=== PATIENT | male | born 1940 | race Caucasian/White ===

== ENCOUNTER → 2017-11-11 09:01 | Outpatient (CLI) | payer MEDICARE, SELFPAY ==
[2017-11-11 11:07] LABS: Absolute Neutrophil Count 6.5 X10^3/uL (2.0-7.7); Basophil# 0.03 X10^3/uL; Basophil% 0.3 % (0-1); Eosinophil# 0.13 X10^3/uL; Eosinophils% 1.4 % (0-5); Hematocrit 52.2 % (40-54); Hemoglobin 17.2 g/dl (13.0-16.5); Lymphocyte % 18.9 % (19-41); Mean Corpuscular Hgb 31.3 pg (27.0-32.0); Mean Corpuscular Volume 95.1 fL (80-94); Monocyte# 0.62 X10^3/uL; Monocyte% 6.9 % (0-10); Neutrophil # 6.47 X10^3/uL (2.7-7.7); Neutrophil % 72.2 % (47-70); Platelet Count 135 K/mm3 (150-450); Red Blood Count 5.49 M/mm3 (4.6-6.2)
[2017-11-11 11:08] LABS: POSITIVE COUNT NO; POSITIVE DIFFERENTIAL NO; POSITIVE MORPHOLOGY NO
[2017-11-11 11:31] LABS: Hemoglobin A1c 5.8 % (4.2-6.3)
[2017-11-13 11:04] LABS: Testosterone Free 9.2 pg/mL (6.6-18.1)
== END ==
PROVIDERS: Family Provider Family Medicine; PCP Family Medicine; Visit Provider Family Medicine
DX: R73.02 Impaired glucose tolerance (oral) (principal); Z51.81 Encounter for therapeutic drug level monitoring; E29.1 Testicular hypofunction
CPT/HCPCS: 36415; 83036; 84402; 84403; 85025

== ENCOUNTER 2018-07-06 15:00 | Outpatient (RCR) | payer MEDICARE, SELFPAY ==
--- NOTE | 2018-06-25 09:07 | ART_ITS ---
Reason For Study: PAD Left Segmental Pressures The left dorsalis pedis waveforms are triphasic. The left posterior tibial artery waveforms are triphasic. Left brachial= 121mmHg. Left posterior tibial artery = 155mmHg. Left dorsalis pedis artery = 143mmHg. Left digit = 135 mmHg. Right Segmental Pressures The right dorsalis pedis waveforms are triphasic. The right posterior tibial artery waveforms are triphasic. Right brachial= 130mmHg. Right posterior tibial artery = 160mmHg. Right dorsalis pedis artery = 144mmHg. Right digit = 120 mmHg. Indices The right ankle brachial index by the dorsalis pedis is 1.11. The right ankle brachial index by the posterior tibial artery is 1.23. The right digital-brachial index is .92. The left ankle brachial index by the dorsalis pedis is 1.1. The left ankle brachial index by the posterior tibial artery is 1.09. The left digital-brachial index is 1.04. Interpretation Summary Triphasic Doppler waveforms are noted at ankle level bilaterally. Pulse-volume recordings demonstrate satisfactory waveform amplitudes at all levels bilaterally, including low thigh, calf, ankle, and digital levels. Resting ankle-brachial indices appear bilaterally normal. Digital- brachial indices are normal bilaterally. There is no evidence of significant arterial occlusive disease in the lower extremities bilaterally. Ordering Physician: Antwon Campbell Performed By: HELLEN CARMONA T
[2018-06-29 14:00] VITALS: BP 118/76; PULSE 80; RESP 18; TEMP 36.2; BMI 30.2
--- NOTE | 2018-06-29 14:50 | PCM.WC.HP ---
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 Current Visit: Yes Qualifiers: Laterality: bilateral Qualified Code(s): I83.893 - Varicose veins of bilateral lower extremities with other complications Code(s): I83.899 - Varicose veins of unspecified lower extremity with other complications (5) Venous hypertension, chronic, with inflammation Status: Chronic Current Visit: Yes Qualifiers: Laterality: bilateral Qualified Code(s): I87.323 - Chronic venous hypertension (idiopathic) with inflammation of bilateral lower extremity Code(s): I87.329 - Chronic venous hypertension (idiopathic) with inflammation of unspecified lower extremity (6) Gout Status: Chronic Current Visit: No Code(s): M10.9 - Gout, unspecified (7) BPH (benign prostatic hyperplasia) Status: Chronic Current Visit: No Code(s): N40.0 - Benign prostatic hyperplasia without lower urinary tract symptoms (8) Arthritis Status: Chronic Current Visit: No Code(s): M19.90 - Unspecified osteoarthritis, unspecified site (9) Hypertension Status: Chronic Current Visit: No Code(s): I10 - Essential (primary) hypertension (10) History of skin cancer Status: Chronic Current Visit: No Code(s): Z85.828 - Personal history of other malignant neoplasm of skin (11) Hyperpigmentation Status: Acute Current Visit: Yes Code(s): L81.9 - Disorder of pigmentation, unspecified (12) Lipodermatosclerosis Status: Acute Current Visit: Yes Code(s): I83.10 - Varicose veins of unspecified lower extremity with inflammation (13) Venous stasis dermatitis Status: Acute Current Visit: Yes Code(s): I87.2 - Venous insufficiency (chronic) (peripheral) Past Medical History Past Medical History: Chronic Problems Chronic venous insufficiency (Chronic) Varicose veins with inflammation (Chronic) Leg pain (Chronic) 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, chronic, with inflammation (Chronic) Gout (Chronic) BPH (benign prostatic hyperplasia) (Chronic) Arthritis (Chronic) Hypertension (Chronic) History of skin cancer (Chronic) Allergies/Adverse Reactions: Allergies Sulfa (Sulfonamide Antibiotics) Allergy (Verified 06/29/18 14:26) Hives Home Medications: Ambulatory Orders Medication Instructions Recorded Allopurinol 100 mg PO BID 06/29/18 Androgel 1.62 % TOPICAL BID 06/29/18 Folic Acid 1 mg PO DAILY 06/29/18 Gabapentin 300 mg PO BID 06/29/18 [place] 3 Fish Oil Softgel 360 mg PO BID 06/29/18 One Daily For Men Tablet 06/29/18 Tamsulosin HCl 0.4 mg PO DAILY 06/29/18 Tramadol 50 mg PO PRN PRN 06/29/18 Valsartan-Hctz 320-25 mg Tab 320 mg PO DAILY 06/29/18 Vitamin D3 5,000 iu PO PRN PRN 06/29/18 traZODone 50 mg PO DAILY 06/29/18 - Family History Paternal - - The patient's father at the age of 89 with a history of prostate cancer. The patient's mother at the history of 96 with a history of venous disease and hypertension. Smoking Status: Former smoker - Physical Exam Vital Signs Temp Pulse Resp BP 97.1 F L 80 18 118/76 06/29/18 14:00 06/29/18 14:00 06/29/18 14:00 06/29/18 14:00 Wound Measurements and Assessment WC - Nurse 1 - General Ulcer Measurement Start: 06/29/18 13:49 Freq: Status: Active Protocol: Activity Type Activity Date Activity User E-Sign Co-Sign Detail Recorded Client Recorded Date Recorded By Document 06/29/18 14:00 AN [id number] 06/29/18 14:23 AN 06/29/18 14:00 Wound Center Nurse 1 [Ulcer Assessment] #1 RIGHT ANTERIOR EM -Combined with other wound No -Current Size (cm) - Length 0.4 -Current Size (cm) - Width 0.4 -Current Size (cm) - Depth 0.1 -Total Square Cm 0.16 -Date of Last Picture (Recall this 06/29/18 field) -Photo Taken Yes -Epithelialization None Present -Tunneling No -Undermining/Tunneling No -Circular Undermining No -Classification - Thickness Partial Thickness -Exudate Amt Small -Exudate Type Serous -Wound Margin Distinct, Outline Attached -Granulation Amt Large (67-100%) -Granulation Quality Red -Slough/Fibrin No -Structure Exposed None/Limited to Skin Breakdown -Texture (Priscilla-wound Skin Appearance) Assessed Excoriation Localized Edema -Moisture (Priscilla-wound Skin Appearance Assessed ) Dry/Scaly -Color (Priscilla-wound Skin Appearance) Assessed Hemosiderin Staining -Temperature (Priscilla-wound Skin No Abnormality Appearance) (Pt Warm) -Tenderness on Palpation (Priscilla-wound No Skin Appearance) -Ulcer Cleansing Rinsed/ Irrigated with Saline -Foul Odor after Cleansing No -Anesthetic Used 5% Lidocaine Gel [Edema Assessment] -Right Calf (cm) 37.8 -Right Ankle (cm) 24 -Left Calf (cm) 37.2 -Left Ankle (cm) 23 WC - Nurse 2 - General Ulcer CM Notes Start: 06/29/18 13:49 Freq: Status: Active Protocol: Activity Type Activity Date Activity User E-Sign Co-Sign Detail Recorded Client Recorded Date Recorded By Document 06/29/18 14:45 MW [id number] 06/29/18 14:48 MW 06/29/18 14:45 Wound Center Nurse 2 [Procedure/Treatment] #1 RIGHT ANTERIOR EM -Time 14:46 -Correct Patient Yes -Correct Side, Site, Position Yes -Correct Procedure Yes -Procedure Performed No -Post Debridement Size (cm) - Length 0.4 -Post Debridement Size (cm) - Width 0.4 -Post Debridement Size (cm) - Depth 0.1 -Total Square Cm 0.16 -Wound/Ulcer Outcome Not Healed -Ulcer Cleansing Rinsed/ Irrigated with Saline -Foul Odor after Cleansing No -Bioengineered Tissue No -Bleeding Controlled with NA -Offloading No -Treatment Response Procedure Tolerated Well [See Physician Procedure note for Specifics] Pain Scale: 0-10 Numeric [Pain] -Is Patient Pain Free? Yes Debridement Note Post-Debridement Measurements/Treatment WC - Nurse 2 - General Ulcer CM Notes Start: 06/29/18 13:49 Freq: Status: Active Protocol: Activity Type Activity Date Activity User E-Sign Co-Sign Detail Recorded Client Recorded Date Recorded By Document 06/29/18 14:45 MW [id number] 06/29/18 14:48 MW 06/29/18 14:45 Wound Center Nurse 2 #1 RIGHT ANTERIOR EM -Time 14:46 -Correct Patient Yes -Correct Side, Site, Position Yes -Correct Procedure Yes -Procedure Performed No -Post Debridement Size (cm) - Length 0.4 -Post Debridement Size (cm) - Width 0.4 -Post Debridement Size (cm) - Depth 0.1 -Total Square Cm 0.16 -Wound/Ulcer Outcome Not Healed -Ulcer Cleansing Rinsed/ Irrigated with Saline -Foul Odor after Cleansing No -Bioengineered Tissue No -Bleeding Controlled with NA -Offloading No -Treatment Response Procedure Tolerated Well Pain Scale: 0-10 Numeric Is Patient Pain Free? 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
--- NOTE | 2018-06-29 14:54 | HP.PCM_ITS ---
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 Current Visit: Yes Qualifiers: Laterality: bilateral Qualified Code(s): I83.893 - Varicose veins of bilateral lower extremities with other complications Code(s): I83.899 - Varicose veins of unspecified lower extremity with other complications (5) Venous hypertension, chronic, with inflammation Status: Chronic Current Visit: Yes Qualifiers: Laterality: bilateral Qualified Code(s): I87.323 - Chronic venous hypertension (idiopathic) with inflammation of bilateral lower extremity Code(s): I87.329 - Chronic venous hypertension (idiopathic) with inflammation of unspecified lower extremity (6) Gout Status: Chronic Current Visit: No Code(s): M10.9 - Gout, unspecified (7) BPH (benign prostatic hyperplasia) Status: Chronic Current Visit: No Code(s): N40.0 - Benign prostatic hyperplasia without lower urinary tract symptoms (8) Arthritis Status: Chronic Current Visit: No Code(s): M19.90 - Unspecified o steoarthritis, unspecified site (9) Hypertension Status: Chronic Current Visit: No Code(s): I10 - Essential (primary) hypertension (10) History of skin cancer Status: Chronic Current Visit: No Code(s): Z85.828 - Personal history of other malignant neoplasm of skin (11) Hyperpigmentation Status: Acute Current Visit: Yes Code(s): L81.9 - Disorder of pigmentation, unspecified (12) Lipodermatosclerosis Status: Acute Current Visit: Yes Code(s): I83.10 - Varicose veins of unspecified lower extremity with inflammation (13) Venous stasis dermatitis Status: Acute Current Visit: Yes Code(s): I87.2 - Venous insufficiency (chronic) (peripheral) Past Medical History Past Medical History: Chronic Problems Chronic venous insufficiency (Chronic) Varicose veins with inflammation (Chronic) Leg pain (Chronic) 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, chronic, with inflammation (Chronic) Gout (Chronic) BPH (benign prostatic hyperplasia) (Chronic) Arthritis (Chronic) Hypertension (Chronic) History of skin cancer (Chronic) Allergies/Adverse Reactions: Allergies Sulfa (Sulfonamide Antibiotics) Allergy (Verified 06/29/18 14:26) Hives Home Medications: Ambulatory Orders Medication Instructions Recorded Allopurinol 100 mg PO BID 06/29/18 Androgel 1.62 % TOPICAL BID 06/29/18 Folic Acid 1 mg PO DAILY 06/29/18 Gabapentin 300 mg PO BID 06/29/18 [place] 3 Fish Oil Softgel 360 mg PO BID 06/29/18 One Daily For Men Tablet 06/29/18 Tamsulosin HCl 0.4 mg PO DAILY 06/29/18 Tramadol 50 mg PO PRN PRN 06/29/18 Valsartan-Hctz 320-25 mg Tab 320 mg PO DAILY 06/29/18 Vitamin D3 5,000 iu PO PRN PRN 06/29/18 traZODone 50 mg PO DAILY 06/29/18 - Family History Paternal - - The patient's father at the age of 89 with a history of prostate cancer . The patient's mother at the history of 96 with a history of venous disease and hypertension. Smoking Status: Former smoker - Physical Exam Vital Signs Temp Pulse Resp BP 97.1 F L 80 18 118/76 06/29/18 14:00 06/29/18 14:00 06/29/18 14:00 06/29/18 14:00 Wound Measurements and Assessment WC - Nurse 1 - General Ulcer Measurement Start: 06/29/18 13:49 Freq: Status: Active Protocol: Activity Type Activity Date Activity User E-Sign Co-Sign Detail Recorded Client Recorded Date Recorded By Document 06/29/18 14:00 AN [id number] 06/29/18 14:23 AN 06/29/18 14:00 Wound Center Nurse 1 [Ulcer Assessment] #1 RIGHT ANTERIOR EM -Combined with other wound No -Current Size (cm) - Length 0.4 -Current Size (cm) - Width 0.4 -Current Size (cm) - Depth 0.1 -Total Square Cm 0.16 -Date of Last Picture (Recall this 06/29/18 field) -Photo Taken Yes -Epithelialization None Present -Tunneling No -Undermining/Tunneling No -Circular Undermining No -Classification - Thickness Partial Thickness -Exudate Amt Small -Exudate Type Serous -Wound Margin Distinct, Outline Attached -Granulation Amt Large (67-100%) -Granulation Quality Red -Slough/Fibrin No -Structure Exposed None/Limited to Skin Breakdown -Texture (Priscilla-wound Skin Appearance) Assessed Excoriation Localized Edema -Moisture (Priscilla-wound Skin Appearance Assessed ) Dry/Scaly -Color (Priscilla-wound Skin Appearance) Assessed Hemosiderin Staining -Temperature (Priscilla-wound Skin No Abnormality Appearance) (Pt Warm) -Tenderness on Palpation (Priscilla-wound No Skin Appearance) -Ulcer Cleansing Rinsed/ Irrigated with Saline -Foul Odor after Cleansing No -Anesthetic Used 5% Lidocaine Gel [Edema Assessment] -Right Calf (cm) 37.8 -Right Ankle (cm) 24 -Left Calf (cm) 37.2 -Left Ankle (cm) 23 WC - Nurse 2 - General Ulcer CM Notes Start: 06/29/18 13:49 Freq: Status: Active Protocol: Activity Type Activity Date Activity User E-Sign Co-Sign Detail Recorded Client Recorded Date Recorded By Document 06/29/18 14:45 MW [id number] 06/29/18 14:48 MW 06/29/18 14:45 Wound Center Nurse 2 [Procedure/Treatment] #1 RIGHT ANTERIOR EM -Time 14:46 -Correct Patient Yes -Correct Side, Site, Position Yes -Correct Procedure Yes -Procedure Performed No -Post Debridement Size (cm) - Length 0.4 -Post Debridement Size (cm) - Width 0.4 -Post Debridement Size (cm) - Depth 0.1 -Total Square Cm 0.16 -Wound/Ulcer Outcome Not Healed -Ulcer Cleansing Rinsed/ Irrigated with Saline -Foul Odor after Cleansing No -Bioengineered Tissue No -Bleeding Controlled with NA -Offloading No -Treatment Response Procedure Tolerated Well [See Physician Procedure note for Specifics] Pain Scale: 0-10 Numeric [Pain] -Is Patient Pain Free? Yes Debridement Note Post-Debridement Measurements/Treatment WC - Nurse 2 - General Ulcer CM Notes Start: 06/29/18 13:49 Freq: Status: Active Protocol: Activity Type Activity Date Activity User E-Sign Co-Sign Detail Recorded Client Recorded Date Recorded By Document 06/29/18 14:45 MW [id number] 06/29/18 14:48 MW 06/29/18 14:45 Wound Center Nurse 2 #1 RIGHT ANTERIOR EM -Time 14:46 -Correct Patient Yes -Correct Side, Site, Position Yes -Correct Procedure Yes -Procedure Performed No -Post Debridement Size (cm) - Length 0.4 -Post Debridement Size (cm) - Width 0.4 -Post Debridement Size (cm) - Depth 0.1 -Total Square Cm 0.16 -Wound/Ulcer Outcome Not Healed -Ulcer Cleansing Rinsed/ Irrigated with Saline -Foul Odor after Cleansing No -Bioengineered Tissue No -Bleeding Controlled with NA -Offloading No -Treatment Response Procedure Tolerated Well Pain Scale: 0-10 Numeric Is Patient Pain Free? 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
--- NOTE | 2018-06-29 16:35 | PCM.WC.HP ---
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 Current Visit: Yes Qualifiers: Laterality: bilateral Qualified Code(s): I83.893 - Varicose veins of bilateral lower extremities with other complications Code(s): I83.899 - Varicose veins of unspecified lower extremity with other complications (5) Venous hypertension, chronic, with inflammation Status: Chronic Current Visit: Yes Qualifiers: Laterality: bilateral Qualified Code(s): I87.323 - Chronic venous hypertension (idiopathic) with inflammation of bilateral lower extremity Code(s): I87.329 - Chronic venous hypertension (idiopathic) with inflammation of unspecified lower extremity (6) Gout Status: Chronic Current Visit: No Code(s): M10.9 - Gout, unspecified (7) BPH (benign prostatic hyperplasia) Status: Chronic Current Visit: No Code(s): N40.0 - Benign prostatic hyperplasia without lower urinary tract symptoms (8) Arthritis Status: Chronic Current Visit: No Code(s): M19.90 - Unspecified osteoarthritis, unspecified site (9) Hypertension Status: Chronic Current Visit: No Code(s): I10 - Essential (primary) hypertension (10) History of skin cancer Status: Chronic Current Visit: No Code(s): Z85.828 - Personal history of other malignant neoplasm of skin (11) Hyperpigmentation Status: Chronic Current Visit: Yes Code(s): L81.9 - Disorder of pigmentation, unspecified (12) Lipodermatosclerosis Status: Chronic Current Visit: Yes Qualifiers: Laterality: bilateral Qualified Code(s): I83.11 - Varicose veins of right lower extremity with inflammation; I83.12 - Varicose veins of left lower extremity with inflammation Code(s): I83.10 - Varicose veins of unspecified lower extremity with inflammation (13) Venous stasis dermatitis Status: Chronic Current Visit: Yes Qualifiers: Laterality: right Qualified Code(s): I87.2 - Venous insufficiency (chronic) (peripheral) Code(s): I87.2 - Venous insufficiency (chronic) (peripheral) History of Present Illness Chief Complaint: Chronic venous insufficiency, varicose veins with inflammation, venous hypertension with inflammation, lower extremity swelling, lower extremity pain, venous stasis dermatitis, hyperpigmentation, lipodermatosclerosis History of Wound: This is a 77-year-old male with a long-standing history of chronic venous disease. The patient suffers from chronic venous insufficiency, varicose veins with inflammation, venous hypertension with inflammation, bilateral lower extremity swelling and pain, hyperpigmentation, and lipodermatosclerosis. The patient is relatively active. He sleeps in a flat position at night. He experiences swelling and edema in his lower extremities at days end. He denies a history of thrombophlebitis. He has previously undergone a bilateral vein stripping procedure in the remote past. He has recently developed superficial venous stasis dermatitis in the right lower extremity. Venous duplex examination performed in July 2017 the right great saphenous vein to be absent. The right anterior accessory saphenous vein and the right small saphenous vein were incompetent. The left great saphenous vein was absent. The left small saphenous vein and the left anterior accessory saphenous vein were incompetent. A recent noninvasive lower extremity arterial study was normal. There is no evidence of significant arterial occlusive disease in the lower extremities. Past Medical History Past Medical History: Chronic Problems Chronic venous insufficiency (Chronic) Varicose veins with inflammation (Chronic) Leg pain (Chronic) 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, chronic, with inflammation (Chronic) Gout (Chronic) BPH (benign prostatic hyperplasia) (Chronic) Arthritis (Chronic) Hypertension (Chronic) History of skin cancer (Chronic) Hyperpigmentation (Chronic) Lipodermatosclerosis (Chronic) Venous stasis dermatitis (Chronic) Past Medical History: Patient has a history of gout, benign prostatic hypertrophy, arthritis, hypertension, and skin cancer. His history is negative for myocardial infarction, congestive heart failure, diabetes mellitus, cerebrovascular accident, renal disease, pulmonary disease, thyroid disease, and hyperlipidemia. Surgical History: - - Patient has a history of right total knee replacement in 2013. He has undergone bilateral vein stripping procedures, where it appears he has undergone stripping of each great saphenous vein. Allergies/Adverse Reactions: Allergies Sulfa (Sulfonamide Antibiotics) Allergy (Verified 06/29/18 14:26) Hives Home Medications: Ambulatory Orders Medication Instructions Recorded Allopurinol 100 mg PO BID 06/29/18 Androgel 1.62 % TOPICAL BID 06/29/18 Folic Acid 1 mg PO DAILY 06/29/18 Gabapentin 300 mg PO BID 06/29/18 [place] 3 Fish Oil Softgel 360 mg PO BID 06/29/18 One Daily For Men Tablet 06/29/18 Tamsulosin HCl 0.4 mg PO DAILY 06/29/18 Tramadol 50 mg PO PRN PRN 06/29/18 Valsartan-Hctz 320-25 mg Tab 320 mg PO DAILY 06/29/18 Vitamin D3 5,000 iu PO PRN PRN 06/29/18 traZODone 50 mg PO DAILY 06/29/18 - Family History Paternal - - The patient's father at the age of 89 with a history of prostate cancer. The patient's mother at the history of 96 with a history of venous disease and hypertension. Lives: Spouse/ Significant Other Smoking Status: Former smoker Tobacco Use: Non-smoker Alcohol: Rare Drugs: None Review of Systems Constitutional: Denies: Chills, Fever, Weight Change Eyes: Denies: Pain, Vision Change HEENT: Denies: Difficulty Hearing, Difficulty Swallowing, Sinus Congestion Cardiovascular: Denies: Chest Pain, Palpitations Respiratory: Denies: Cough, Shortness of Breath Gastrointestinal: Denies: Diarrhea, Nausea, Vomiting Genitourinary: Denies: Dysuria, Hematuria Endocrine: Denies: Heat/ Cold Intolerance, Polydipsia, Polyuria Hematologic/ Lymphatic: Denies: Easy Bruising, Easy Bleeding - Physical Exam Vital Signs Temp Pulse Resp BP 97.1 F L 80 18 118/76 06/29/18 14:00 06/29/18 14:00 06/29/18 14:00 06/29/18 14:00 General: Alert, Oriented x3, Cooperative, No apparent distress, Well developed, Well nourished, - - Patient is obese. HEENT: Atraumatic, PERRLA, EOMI, Normocephalic Oral: Moist Mucosa, No Gingival or Mucosal Lesions/ Ulcerations Neck: Supple, No JVD, Negative Carotid Bruits, Negative Hepatojugular Reflux, No Nodes, No Nuchal Rigidity, Trachea Midline Lungs: Clear to auscultation, Normal air movement, No rhonchi, No wheeze, No rales Cardiovascular: Regular rate, Regular Rhythm, Normal S1, Normal S2, No murmurs Abdomen: Soft, Non Tender, Non-Distended, Obese Extremities: No clubbing, No cyanosis, No Calf Tenderness, - - Mild swelling and edema is noted in the lower extremities bilaterally. Both lower extremities demonstrate chronic hyperpigmentation and lipodermatosclerosis. There are no open wounds or ulcerations of the left lower extremity. On the right, there are several superficial excoriations in the distal right lower extremity, appearing to represent venous stasis dermatitis. There is no sign of infection or cellulitis. Wound Measurements and Assessment WC - Nurse 1 - General Ulcer Measurement Start: 06/29/18 13:49 Freq: Status: Active Protocol: Activity Type Activity Date Activity User E-Sign Co-Sign Detail Recorded Client Recorded Date Recorded By Document 06/29/18 14:00 AN [id number] 06/29/18 14:23 AN 06/29/18 14:00 Wound Center Nurse 1 [Ulcer Assessment] #1 RIGHT ANTERIOR EM -Combined with other wound No -Current Size (cm) - Length 0.4 -Current Size (cm) - Width 0.4 -Current Size (cm) - Depth 0.1 -Total Square Cm 0.16 -Date of Last Picture (Recall this 06/29/18 field) -Photo Taken Yes -Epithelialization None Present -Tunneling No -Undermining/Tunneling No -Circular Undermining No -Classification - Thickness Partial Thickness -Exudate Amt Small -Exudate Type Serous -Wound Margin Distinct, Outline Attached -Granulation Amt Large (67-100%) -Granulation Quality Red -Slough/Fibrin No -Structure Exposed None/Limited to Skin Breakdown -Texture (Priscilla-wound Skin Appearance) Assessed Excoriation Localized Edema -Moisture (Priscilla-wound Skin Appearance Assessed ) Dry/Scaly -Color (Priscilla-wound Skin Appearance) Assessed Hemosiderin Staining -Temperature (Priscilla-wound Skin No Abnormality Appearance) (Pt Warm) -Tenderness on Palpation (Priscilla-wound No Skin Appearance) -Ulcer Cleansing Rinsed/ Irrigated with Saline -Foul Odor after Cleansing No -Anesthetic Used 5% Lidocaine Gel [Edema Assessment] -Right Calf (cm) 37.8 -Right Ankle (cm) 24 -Left Calf (cm) 37.2 -Left Ankle (cm) 23 WC - Nurse 2 - General Ulcer CM Notes Start: 06/29/18 13:49 Freq: Status: Active Protocol: Activity Type Activity Date Activity User E-Sign Co-Sign Detail Recorded Client Recorded Date Recorded By Document 06/29/18 14:45 MW [id number] 06/29/18 14:48 MW 06/29/18 14:45 Wound Center Nurse 2 [Procedure/Treatment] #1 RIGHT ANTERIOR EM -Time 14:46 -Correct Patient Yes -Correct Side, Site, Position Yes -Correct Procedure Yes -Procedure Performed No -Post Debridement Size (cm) - Length 0.4 -Post Debridement Size (cm) - Width 0.4 -Post Debridement Size (cm) - Depth 0.1 -Total Square Cm 0.16 -Wound/Ulcer Outcome Not Healed -Ulcer Cleansing Rinsed/ Irrigated with Saline -Foul Odor after Cleansing No -Bioengineered Tissue No -Bleeding Controlled with NA -Offloading No -Treatment Response Procedure Tolerated Well [See Physician Procedure note for Specifics] Pain Scale: 0-10 Numeric [Pain] -Is Patient Pain Free? Yes Musculoskeletal: No Muscle Wasting Neurological: Cranial nerves II-XII grossly intact, Neuro grossly intact Psych/Mental Status: Normal Affect, Appropriate, Alert and oriented to time, place, person, mood and affect Debridement Note Post-Debridement Measurements/Treatment - Nurse 2 - General Ulcer CM Notes Start: 06/29/18 13:49 Freq: Status: Active Protocol: Activity Type Activity Date Activity User E-Sign Co-Sign Detail Recorded Client Recorded Date Recorded By Document 06/29/18 14:45 MW [id number] 06/29/18 14:48 MW 06/29/18 14:45 Wound Center Nurse 2 #1 RIGHT ANTERIOR EM -Time 14:46 -Correct Patient Yes -Correct Side, Site, Position Yes -Correct Procedure Yes -Procedure Performed No -Post Debridement Size (cm) - Length 0.4 -Post Debridement Size (cm) - Width 0.4 -Post Debridement Size (cm) - Depth 0.1 -Total Square Cm 0.16 -Wound/Ulcer Outcome Not Healed -Ulcer Cleansing Rinsed/ Irrigated with Saline -Foul Odor after Cleansing No -Bioengineered Tissue No -Bleeding Controlled with NA -Offloading No -Treatment Response Procedure Tolerated Well Pain Scale: 0-10 Numeric Is Patient Pain Free? Yes No debridement was completed today Assessment/Plan Active Problems Chronic venous insufficiency (Chronic) Varicose veins with inflammation (Chronic) Leg pain (Chronic) 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, chronic, with inflammation (Chronic) Hyperpigmentation (Chronic) Lipodermatosclerosis (Chronic) Venous stasis dermatitis (Chronic) Assessment: This is a 77-year-old male with a long-standing history of chronic venous disease. He suffers from chronic venous insufficiency, varicose veins with inflammation, venous hypertension with inflammation, chronic leg swelling and pain, and has skin changes which are chronic in nature, consistent with his venous disease, with manifestations of lipodermatosclerosis and hyperpigmentation. Plan: Conservative treatment measures are to be implemented. The patient is to elevate his lower extremities as much as possible. He is to continue sleeping in a flat position at night. Leg elevation is to be to heart level, or higher. This is to be accomplished even during daytime hours. Activity has been encouraged. Weight optimization has been recommended. The patient is to avoid idle standing and sitting. We are to continue compression to the left lower extremity by means of graduated compression stockings of 20-30 mmHg, which the patient currently possesses. We are to implement compression of the right lower extremity by means of an [place] boot, which will be placed today, and changed twice weekly. This will offer compression to the right lower extremity, as well as address issues with regard to dermatitis in the right lower extremity. The patient is to return in 1 week for reassessment. The patient is not a smoker. Influenza vaccine was not administered today. Patient weighs 205 pounds. He stands 5 feet 9 inches tall. His BMI is 30.2, which places him in an obese class I category. Weight loss has been recommended, in collaboration with his primary care physician has been advised.
[2018-07-02 08:32] VITALS: BP 130/79; PULSE 75; RESP 18; TEMP 36.6; BMI 30.2
[2018-07-06 15:07] VITALS: BP 140/87; PULSE 135; RESP 18; TEMP 37; BMI 30.2
--- NOTE | 2018-07-06 16:52 | PCM.WC.HP ---
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 Current Visit: Yes Qualifiers: Laterality: bilateral Qualified Code(s): I83.893 - Varicose veins of bilateral lower extremities with other complications Code(s): I83.899 - Varicose veins of unspecified lower extremity with other complications (5) Venous hypertension, chronic, with inflammation Status: Chronic Current Visit: Yes Qualifiers: Laterality: bilateral Qualified Code(s): I87.323 - Chronic venous hypertension (idiopathic) with inflammation of bilateral lower extremity Code(s): I87.329 - Chronic venous hypertension (idiopathic) with inflammation of unspecified lower extremity (6) Gout Status: Chronic Current Visit: No Code(s): M10.9 - Gout, unspecified (7) BPH (benign prostatic hyperplasia) Status: Chronic Current Visit: No Code(s): N40.0 - Benign prostatic hyperplasia without lower urinary tract symptoms (8) Arthritis Status: Chronic Current Visit: No Code(s): M19.90 - Unspecified osteoarthritis, unspecified site (9) Hypertension Status: Chronic Current Visit: No Code(s): I10 - Essential (primary) hypertension (10) History of skin cancer Status: Chronic Current Visit: No Code(s): Z85.828 - Personal history of other malignant neoplasm of skin (11) Hyperpigmentation Status: Chronic Current Visit: Yes Code(s): L81.9 - Disorder of pigmentation, unspecified (12) Lipodermatosclerosis Status: Chronic Current Visit: Yes Qualifiers: Laterality: bilateral Qualified Code(s): I83.11 - Varicose veins of right lower extremity with inflammation; I83.12 - Varicose veins of left lower extremity with inflammation Code(s): I83.10 - Varicose veins of unspecified lower extremity with inflammation (13) Venous stasis dermatitis Status: Chronic Current Visit: Yes Qualifiers: Laterality: right Qualified Code(s): I87.2 - Venous insufficiency (chronic) (peripheral) Code(s): I87.2 - Venous insufficiency (chronic) (peripheral) History of Present Illness Chief Complaint: Chronic venous insufficiency, varicose veins with inflammation, venous hypertension with inflammation, lower extremity swelling, lower extremity pain, venous stasis dermatitis, hyperpigmentation, lipodermatosclerosis History of Wound: This is a 77-year-old male with a long-standing history of chronic venous disease. The patient suffers from chronic venous insufficiency, varicose veins with inflammation, venous hypertension with inflammation, bilateral lower extremity swelling and pain, hyperpigmentation, and lipodermatosclerosis. The patient is relatively active. He sleeps in a flat position at night. He experiences swelling and edema in his lower extremities at days end. He denies a history of thrombophlebitis. He has previously undergone a bilateral vein stripping procedure in the remote past. He has recently developed superficial venous stasis dermatitis in the right lower extremity. Venous duplex examination performed in July 2017 the right great saphenous vein to be absent. The right anterior accessory saphenous vein and the right small saphenous vein were incompetent. The left great saphenous vein was absent. The left small saphenous vein and the left anterior accessory saphenous vein were incompetent. A recent noninvasive lower extremity arterial study was normal. There is no evidence of significant arterial occlusive disease in the lower extremities. Past Medical History Past Medical History: Chronic Problems Chronic venous insufficiency (Chronic) Varicose veins with inflammation (Chronic) Leg pain (Chronic) 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, chronic, with inflammation (Chronic) Gout (Chronic) BPH (benign prostatic hyperplasia) (Chronic) Arthritis (Chronic) Hypertension (Chronic) History of skin cancer (Chronic) Hyperpigmentation (Chronic) Lipodermatosclerosis (Chronic) Venous stasis dermatitis (Chronic) Surgical History: - - Patient has a history of right total knee replacement in 2013. He has undergone bilateral vein stripping procedures, where it appears he has undergone stripping of each great saphenous vein. Allergies/Adverse Reactions: Allergies Sulfa (Sulfonamide Antibiotics) Allergy (Verified 06/29/18 14:26) Hives Home Medications: Ambulatory Orders Medication Instructions Recorded Allopurinol 100 mg PO BID 06/29/18 Androgel 1.62 % TOPICAL BID 06/29/18 Folic Acid 1 mg PO DAILY 06/29/18 Gabapentin 300 mg PO BID 06/29/18 [place] 3 Fish Oil Softgel 360 mg PO BID 06/29/18 One Daily For Men Tablet 06/29/18 Tamsulosin HCl 0.4 mg PO DAILY 06/29/18 Tramadol 50 mg PO PRN PRN 06/29/18 Valsartan-Hctz 320-25 mg Tab 320 mg PO DAILY 06/29/18 Vitamin D3 5,000 iu PO PRN PRN 06/29/18 traZODone 50 mg PO DAILY 06/29/18 - Family History Paternal - - The patient's father at the age of 89 with a history of prostate cancer. The patient's mother at the history of 96 with a history of venous disease and hypertension. Lives: Spouse/ Significant Other Smoking Status: Former smoker Tobacco Use: Non-smoker Alcohol: Rare Drugs: None Review of Systems Constitutional: Denies: Chills, Fever, Weight Change Eyes: Denies: Pain, Vision Change HEENT: Denies: Difficulty Hearing, Difficulty Swallowing, Sinus Congestion Cardiovascular: Denies: Chest Pain, Palpitations Respiratory: Denies: Cough, Shortness of Breath Gastrointestinal: Denies: Diarrhea, Nausea, Vomiting Genitourinary: Denies: Dysuria, Hematuria Endocrine: Denies: Heat/ Cold Intolerance, Polydipsia, Polyuria Hematologic/ Lymphatic: Denies: Easy Bruising, Easy Bleeding - Physical Exam Vital Signs Temp Pulse Resp BP 98.6 F 135 H 18 140/87 H 07/06/18 15:07 07/06/18 15:07 07/06/18 15:07 07/06/18 15:07 General: Alert, Oriented x3, Cooperative, No apparent distress, Well developed, Well nourished HEENT: Atraumatic, PERRLA, EOMI, Normocephalic Oral: Moist Mucosa Neck: No JVD Lungs: Normal air movement Abdomen: Non-Distended Extremities: No clubbing, No cyanosis, No edema, No Calf Tenderness, - - There is no significant swelling or edema in either lower extremity. Chronic hyperpigmentation and lipodermatosclerosis persist, with a small amount of scaly dermatitis. Otherwise, there are no open wounds or ulcerations in either lower extremity. There is no evidence of infection or cellulitis. Wound Measurements and Assessment WC - Nurse 1 - General Ulcer Measurement Start: 06/29/18 13:49 Freq: Status: Active Protocol: Activity Type Activity Date Activity User E-Sign Co-Sign Detail Recorded Client Recorded Date Recorded By Document 07/06/18 15:07 AN [id number] 07/06/18 15:19 AN 07/06/18 15:07 Wound Center Nurse 1 [Ulcer Assessment] #1 RIGHT ANTERIOR EM -Current Size (cm) - Length 0.1 -Current Size (cm) - Width 0.1 -Current Size (cm) - Depth 0.1 -Total Square Cm 0.01 -Exudate Amt None Present -Granulation Amt None Present (0 %) -Necrosis Amt None Present (0 %) -Structure Exposed None/Limited to Skin Breakdown -Texture (Priscilla-wound Skin Appearance) Assessed -Moisture (Priscilla-wound Skin Appearance Assessed ) -Color (Priscilla-wound Skin Appearance) Assessed -Ulcer Cleansing soap and water -Foul Odor after Cleansing No [Edema Assessment] -Right Calf (cm) 36 -Right Ankle (cm) 23 WC - Nurse 2 - General Ulcer CM Notes Start: 06/29/18 13:49 Freq: Status: Active Protocol: Activity Type Activity Date Activity User E-Sign Co-Sign Detail Recorded Client Recorded Date Recorded By Document 07/06/18 16:47 DV [id number] 07/06/18 16:49 DV 07/06/18 16:47 Wound Center Nurse 2 [Procedure/Treatment] #1 RIGHT ANTERIOR EM -Time 16:48 -Correct Patient Yes -Correct Side, Site, Position Yes -Procedure Performed No -Post Debridement Size (cm) - Length 0 -Post Debridement Size (cm) - Width 0 -Post Debridement Size (cm) - Depth 0 -Total Square Cm 0 -Wound/Ulcer Outcome Healed- Epithelialized [See Physician Procedure note for Specifics] Pain Scale: 0-10 Numeric [Pain] -Is Patient Pain Free? Yes Musculoskeletal: No Muscle Wasting Neurological: Cranial nerves II-XII grossly intact, Neuro grossly intact Psych/Mental Status: Normal Affect, Appropriate, Alert and oriented to time, place, person, mood and affect Debridement Note Post-Debridement Measurements/Treatment WC - Nurse 2 - General Ulcer CM Notes Start: 06/29/18 13:49 Freq: Status: Active Protocol: Activity Type Activity Date Activity User E-Sign Co-Sign Detail Recorded Client Recorded Date Recorded By Document 06/29/18 14:45 MW [id number] 06/29/18 14:48 MW Document 07/06/18 16:47 DV [id number] 07/06/18 16:49 DV 06/29/18 07/06/18 14:45 16:47 Wound Center Nurse 2 #1 RIGHT ANTERIOR EM -Time 14:46 16:48 -Correct Patient Yes Yes -Correct Side, Site, Position Yes Yes -Correct Procedure Yes -Procedure Performed No No -Post Debridement Size (cm) - Length 0.4 0 -Post Debridement Size (cm) - Width 0.4 0 -Post Debridement Size (cm) - Depth 0.1 0 -Total Square Cm 0.16 0 -Wound/Ulcer Outcome Not Healed Healed- Epithelialized -Ulcer Cleansing Rinsed/ Irrigated with Saline -Foul Odor after Cleansing No -Bioengineered Tissue No -Bleeding Controlled with NA -Offloading No -Treatment Response Procedure Tolerated Well Pain Scale: 0-10 Numeric Is Patient Pain Free? Yes Yes No debridement was completed today Assessment/Plan Active Problems Chronic venous insufficiency (Chronic) Varicose veins with inflammation (Chronic) Leg pain (Chronic) 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, chronic, with inflammation (Chronic) Hyperpigmentation (Chronic) Lipodermatosclerosis (Chronic) Venous stasis dermatitis (Chronic) Assessment: This is a 77-year-old male with a long-standing history of chronic venous disease. He suffers from chronic venous insufficiency, varicose veins with inflammation, venous hypertension with inflammation, chronic leg swelling and pain, and has skin changes which are chronic in nature, consistent with his venous disease, with manifestations of lipodermatosclerosis and hyperpigmentation. Plan: The patient is now completely healed. The excoriations and ulcerations in the lower extremities are completely healed and epithelialized. Patient is to be discharged. Conservative treatment measures are to be continued. The patient is to elevate his lower extremities as much as possible. He is to continue sleeping in a flat position at night. Leg elevation is to be to heart level, or higher. This is to be accomplished even during daytime hours. Activity has been encouraged. Weight optimization has been recommended. The patient is to avoid idle standing and sitting. We are to continue compression to the lower extremities by means of graduated compression stockings of 20-30 mmHg, which the patient currently possesses. The patient is to follow-up henceforth on an as-needed basis. The patient is not a smoker. Influenza vaccine was not administered today. Patient weighs 205 pounds. He stands 5 feet 9 inches tall. His BMI is 30.2, which places him in an obese class I category. Weight loss has been recommended, in collaboration with his primary care physician has been advised.
== END 2018-07-16 23:59 ==
LOC: WC 15:00
PROVIDERS: Family Provider Family Medicine; PCP Family Medicine; Referring Provider Surgery; Visit Provider Surgery
DX: I83.893 Varicose veins of bilateral lower extremities with other complications (principal); M79.604 Pain in right leg; M79.605 Pain in left leg; N40.0 Benign prostatic hyperplasia without lower urinary tract symptoms; M19.90 Unspecified osteoarthritis, unspecified site; I10 Essential (primary) hypertension; Z85.828 Personal history of other malignant neoplasm of skin; M10.9 Gout, unspecified; Z79.899 Other long term (current) drug therapy; Z87.891 Personal history of nicotine dependence; I73.9 Peripheral vascular disease, unspecified
CPT/HCPCS: 29580; 93923; 99202; 99213; G0463

== ENCOUNTER → 2020-01-20 08:54 | Outpatient (CLI) | payer MEDICARE, SELFPAY ==
[2020-01-20 12:50] LABS: Absolute Lymphocyte Count 1.95 X10^3/uL (0.83-4.51); Absolute Neutrophil Count 3.4 X10^3/uL (2.0-7.7); Basophil# 0.04 X10^3/uL; Basophil% 0.6 % (0-1); Eosinophil# 0.16 X10^3/uL; Eosinophils% 2.6 % (0-5); Hematocrit 51.2 % (40-54); Hemoglobin 16.8 g/dL (13.0-16.5); Lymphocyte # 1.95 X10^3/ul (4.0); Lymphocyte % 31.7 % (19-41); Mean Corp Hgb Conc 32.8 g/dL (32-36); Mean Corpuscular Hgb 31.2 pg (27.0-32.0); Mean Platelet Vol. 10.9 fl (6.2-12.0); Monocyte# 0.56 X10^3/uL; Monocyte% 9.1 % (0-10); NRBC Flagged by Analyzer 0 % (0-5); Neutrophil # 3.42 X10^3/uL (2.7-7.7); Neutrophil % 55.5 % (47-70); Platelet Count 153 K/mm3 (150-450); RBC Distribution Width CV 14.3 % (11.6-14.6); RBC Distribution Width SD 49.4 fl (35.1-43.9); Red Blood Count 5.39 M/mm3 (4.6-6.2); White Blood Count 6.2 K/mm3 (4.4-11.0)
[2020-01-20 12:55] LABS: Hemoglobin A1c 5.6 % (3.8-5.6)
[2020-01-20 13:00] LABS: ALB/GLOB Ratio 1.2 RATIO (0.9-2.4); AST(SGOT) 27 U/L (15-37); Alanine Aminotransfer ALT/SGPT 31 U/L (16-61); Albumin, Serum 3.9 g/dL (3.2-5.0); Alkaline Phosphatase 84 U/L (45-117); Anion Gap 7 (5-15); BUN 27 mg/dL (7-18); BUN/Creat Ratio 16.3 RATIO (10-20); Calcium,Total 9.4 mg/dL (8.5-10.1); Chloride 102 mmol/L (98-107); Creatinine, Serum 1.66 mg/dL (0.70-1.30); EST Glomerular Filtration Rate 43 mL/min (>60); Est Glom Filt Rate - Afr Amer 52 mL/min (>60); Globulin 3.3 g/dL (2.2-4.2); Glucose 95 mg/dL (74-106); Potassium 3.7 mmol/L (3.5-5.1); Protein, Total 7.2 g/dL (6.4-8.2); Sodium Level 135 mmol/L (136-145); T4 Free Direct 1.16 ng/dL (0.76-1.46); Thyroid Stim Hormone (TSH) 3.36 uIU/mL (0.358-3.74)
== END ==
PROVIDERS: PCP Family Medicine; Visit Provider Family Medicine
DX: R53.83 Other fatigue (principal); I10 Essential (primary) hypertension; R94.5 Abnormal results of liver function studies; E34.9 Endocrine disorder, unspecified; R73.01 Impaired fasting glucose
CPT/HCPCS: 36415; 80053; 83036; 84403; 84439; 84443; 84550; 85025

== ENCOUNTER → 2020-05-22 08:42 | Outpatient (CLI) | payer MEDICARE, SELFPAY ==
--- NOTE | 2020-05-22 09:01 | RAD_ITS ---
STUDY: X-RAY - LEFT FOOT CLINICAL: Severe pain proximal left fifth metatarsal, no specific injury. TECHNIQUE: 3 view(s) of the foot. COMPARISON: None. FINDINGS: There is a small plantar calcaneal enthesophyte. There is a cyst in the lateral cuneiform. Otherwise, unremarkable talus, calcaneus, and tarsal bones. There is pes planus deformity. Normal visualized subtalar, talonavicular, calcaneocuboid, tarsal and tarsometatarsal articulations. Normal metatarsi. Normal metatarsophalangeal joint of the great toe. Normal tibial and fibular sesamoid bones. There are bipartite sesamoids. There is flexion deformity at the interphalangeal joint of the great toe. Normal phalanges of the great toe. Normal second through fifth metatarsophalangeal joints. There are hammertoe deformities of the second through fourth digits. There is vascular calcification. RAD/Foot min 3 Views IMPRESSION: Cyst in the lateral cuneiform. Small plantar calcaneal enthesophyte. Flexion deformity at the interphalangeal joint of the great toe. Pes planus deformity. Electronically Signed: Abhay Eastman MD at 9:52 EST Tel , Service support ,
[2020-05-22 13:18] LABS: Anion Gap 10 (5-15); BUN 24 mg/dL (7-18); BUN/Creat Ratio 17.5 RATIO (10-20); Calcium,Total 9.7 mg/dL (8.5-10.1); Chloride 106 mmol/L (98-107); Creatinine, Serum 1.37 mg/dL (0.70-1.30); EST Glomerular Filtration Rate 54 mL/min (>60); Est Glom Filt Rate - Afr Amer 65 mL/min (>60); Glucose 195 mg/dL (74-106); PSA,Total - Annual Screen 0.96 ng/mL (0.00-4.00); Potassium 3.3 mmol/L (3.5-5.1); Sodium Level 140 mmol/L (136-145)
== END ==
PROVIDERS: PCP Family Medicine; Referring Provider Family Medicine; Visit Provider Family Medicine
DX: N18.30 Chronic kidney disease, stage 3 unspecified (principal); E34.9 Endocrine disorder, unspecified; N40.1 Benign prostatic hyperplasia with lower urinary tract symptoms; R35.1 Nocturia; M79.672 Pain in left foot; Z12.5 Encounter for screening for malignant neoplasm of prostate
CPT/HCPCS: 36415; 73630; 80048; 84153; G0103

== ENCOUNTER 2020-07-05 09:32 | Outpatient (RCR) | payer MEDICARE, SELFPAY | END 2020-07-05 23:59 | LOC: IMMUN 09:32 | PROVIDERS: PCP Family Medicine; Visit Provider Family Medicine | DX: Z23 Encounter for immunization (principal) | CPT/HCPCS: 0011A; 0012A; 91301 ==

== ENCOUNTER → 2020-09-04 08:42 | Outpatient (CLI) | payer MEDICARE, SELFPAY ==
[2020-09-04 09:50] LABS: Absolute Lymphocyte Count 1.62 X10^3/uL (0.83-4.51); Absolute Neutrophil Count 2.7 X10^3/uL (2.0-7.7); Basophil# 0.04 X10^3/uL; Basophil% 0.8 % (0-1); Eosinophil# 0.14 X10^3/uL; Eosinophils% 2.9 % (0-5); Hematocrit 49.5 % (40-54); Hemoglobin 16.3 g/dL (13.0-16.5); Lymphocyte # 1.62 X10^3/ul (0.83-4.51); Lymphocyte % 33.1 % (19-41); Mean Corp Hgb Conc 32.9 g/dL (32-36); Mean Corpuscular Hgb 31.7 pg (27.0-32.0); Mean Corpuscular Volume 96.3 fL (80-94); Mean Platelet Vol. 10.4 fl (6.2-12.0); Monocyte# 0.39 X10^3/uL; NRBC Flagged by Analyzer 0 % (0-5); Neutrophil # 2.65 X10^3/uL (2.7-7.7); Neutrophil % 54.2 % (47-70); Platelet Count 150 K/mm3 (150-450); RBC Distribution Width CV 14.2 % (11.6-14.6); RBC Distribution Width SD 50.4 fl (35.1-43.9); Red Blood Count 5.14 M/mm3 (4.6-6.2); White Blood Count 4.9 K/mm3 (4.4-11.0)
[2020-09-04 10:31] LABS: Vitamin B12 1373 pg/mL (211-911)
[2020-09-04 10:38] LABS: ALB/GLOB Ratio 1.1 RATIO (0.9-2.4); AST(SGOT) 27 U/L (15-37); Alanine Aminotransfer ALT/SGPT 34 U/L (16-61); Albumin, Serum 3.8 g/dL (3.2-5.0); Alkaline Phosphatase 90 U/L (45-117); Anion Gap 6 (5-15); BUN 26 mg/dL (7-18); BUN/Creat Ratio 20.6 RATIO (10-20); Calcium,Total 9.9 mg/dL (8.5-10.1); Chloride 102 mmol/L (98-107); Creatinine, Serum 1.26 mg/dL (0.70-1.30); EST Glomerular Filtration Rate 59 mL/min (>60); Est Glom Filt Rate - Afr Amer 71 mL/min (>60); Globulin 3.4 g/dL (2.2-4.2); Glucose 96 mg/dL (74-106); PSA,Total- Diagnostic 0.79 ng/mL (0.0-4.0); Potassium 3.6 mmol/L (3.5-5.1); Protein, Total 7.2 g/dL (6.4-8.2); Sodium Level 137 mmol/L (136-145); T4 Free Direct 0.95 ng/dL (0.76-1.46); Uric Acid 5.9 mg/dL (3.5-7.2)
== END ==
PROVIDERS: PCP Family Medicine; Referring Provider Family Medicine; Visit Provider Family Medicine
DX: M10.9 Gout, unspecified (principal); I10 Essential (primary) hypertension; R94.5 Abnormal results of liver function studies; E34.9 Endocrine disorder, unspecified
CPT/HCPCS: 36415; 80053; 82607; 84153; 84403; 84439; 84443; 84550; 85025

== ENCOUNTER 2020-12-19 08:00 | Outpatient (RCR) | payer MEDICARE, SELFPAY ==
--- NOTE | 2020-10-17 09:07 | HP.PTEVAL_ITS ---
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 Date of Evaluation: 10/17/20 Physical Therapist: Iman Roque, PT, Cert MDT, OCS - Visit Plan Frequency: 2x /Week Duration: 4 Weeks Plan: PT INTERVETIONS LUMBAR ROM,DLS ABD/BACK,POSTURAL EX'S ,BLE STRENGTHNEING AND LE FLEXABLITY - Subjective This 80 y/o male presents to physical therapy with lumbar laminectomy and hemilaminectomy om September [address] Aguilar at [facility] . Patient d/c September 23 . Patient d/c with fww then progressed to cane 1 week after being. Patient had back and leg pain 3 years thus underwent s/p surgery. Patient had MRI stenosis. Patient has had prior pain management. Patient currently has no leg pain just back mild dull pain. Patient denies bowel/bladder. Coughing/sneezing-. Patient sleeping okay. Aggravating factors walking or standing 1 hour. Alleviating factors rest. Denies parathesia/tingling. Patient goal to get stronger. Patient condition affects and QOL. Precautions no more than 30 #.COMORBITIES: bilateral shoulder RTC tear. SOCAIL: marrieds. VOCATION: retired - Pain Bilateral Back Pain Intensity (Out of 10): 1 Pain Intensity Range: 10 - Objective POSTURE: mild forward posture. NEURO : denies parathesia/tingling reflexes L3-4,L4-5,L5-S1 1/3. SYMMRIES: align. PALAPTION: unremarkable. LUMBAR ROM: flexion mod loss, extension mod/severe loss side glides mod loss. MMT: quads 3+/5,right,left 4-/5,hams 4-/5,hip flexion right 3+/5,left 4-/5 ankl4 4-/5. FLEXABLITY: HAMS MOD tight - Special Tests L/S Slump test left side: Negative L/S Slump test right side: Negative L/S Left Straight Leg Raise: Negative L/S Right Straight Leg Raise: Negative - Goals Goal 1:: I with HEP Goal Time Frame: 4-6 Weeks Goal 2:: Improve strength right leg 4-/5 quads ,hip flexion and left 4/5 to improve function and gait. Goal Time Frame: 4-6 Weeks Goal 3:: Patient to improve lumbar ROM for function of recovery. Goal Time Frame: 4-6 Weeks Goal 4:: Patient to being able to walk and stand > 1 HOUR to improve function with moblity Goal Time Frame: 4-6 Weeks Goal 5:: Patient to increase back owestry score by 5 points or > to improve function Goal Time Frame: 4-6 Weeks - Rehabilitation Potential Physical Therapy Diagnosis: This patient underwent s/p hemilaminectomy inferior L2 ,laminectomy L3 L4 and L5 on 09/19/20 with weakness right leg> left, decrease ROM lumbar ,impaired gait and function thus will benefit from skilled PT Rehabilitation Potential: Good - Anticipated Interventions Patient/Client Instruction: Educate patient on: Condition, Plan of Care For the Purpose of:: To decrease pain, To decrease swelling/inflammation, To improve muscle performance and motor function, To improve ability to perform ADL's, To increase tolerance to activity/condition/position, To improve performance and independence with ADL's, To improve ability of physical actions for home/community/work/leisure, To increase flexibility/ROM, To improve tolerance to ADL's Therapeutic Exercise to Include: Strength training, Body mechanics, Postural training, Dynamic Lumbar Stabilization For the Purpose of:: To decrease pain, To increase ROM, To improve muscle performance and motor function, To improve ability to perform ADL's, To increase tolerance to activity/condition/position, To improve ability of physical actions for home/community/work/leisure, To increase flexibility/ROM, To improve endurance, To improve balance, To improve safety with gait, To improve ability to perform tasks related to life management Thank you for the opportunity to evaluate your patient. For Medicare and Medicare HMO plans, please review the plan of care and approve it. It will need to be FAXED BACK to us at [phone] for Medicare purposes. For Medicare only, by signing this I certify the plan of care. Please let me know if there are questions or concerns regarding this plan of care. Physician Signature: Date:
--- NOTE | 2021-03-01 11:32 | HP.PT.NRP ---
IMAN MELANIE SENTHIL was seen in my office for initial evaluation on 10/17/20. The following Plan of Care was established for this patient: Initial Frequency: 2x /Week Initial Duration: 4 Weeks Patient/Client Instruction: Educate patient on: Condition, Plan of Care For the Purpose of:: To decrease pain, To decrease swelling/inflammation, To improve muscle performance and motor function, To improve ability to perform ADL's, To increase tolerance to activity/condition/position, To improve performance and independence with ADL's, To improve ability of physical actions for home/community/work/leisure, To increase flexibility/ROM, To improve tolerance to ADL's Therapeutic Exercise to Include: Strength training, Body mechanics, Postural training, Dynamic Lumbar Stabilization For the Purpose of:: To decrease pain, To increase ROM, To improve muscle performance and motor function, To improve ability to perform ADL's, To increase tolerance to activity/condition/position, To improve ability of physical actions for home/community/work/leisure, To increase flexibility/ROM, To improve endurance, To improve balance, To improve safety with gait, To improve ability to perform tasks related to life management This patient was last seen in our office . Pertinent comments regarding their Physical therapy will appear below: Patient was seen for PT for lumbar stenosis /DDD focusing DLS and flexion ex's ,postural ex's At this point I will be discontinuing this patient from physical therapy. I would be happy to see this patient again in the future if found appropriate by the physician. Thank you! Iman Roque, PT, Cert MDT, OCS Balance/Gait/Functional tests - Balance/Special Test Scores Oswestry Low Back Score: 2
== END 2020-12-19 19:00 | disposition home or self-care (01) ==
LOC: PT 08:00
PROVIDERS: PCP Family Medicine
DX: M43.16 Spondylolisthesis, lumbar region (principal); M51.36 Other intervertebral disc degeneration, lumbar region; M48.061 Spinal stenosis, lumbar region without neurogenic claudication
CPT/HCPCS: 97110; 97162

== ENCOUNTER → 2021-03-06 | Outpatient (CLI) | payer MEDICARE, SELFPAY | END | disposition home or self-care (01) | PROVIDERS: PCP Family Medicine; Referring Provider Physician Assistant Surgical; Visit Provider Physician Assistant Surgical | DX: Z11.52 Encounter for screening for COVID-19 (principal) | CPT/HCPCS: 87635; U0005; U0003 ==

== ENCOUNTER 2021-08-13 08:05 | Outpatient (CLI) | payer MEDICARE, SELFPAY ==
--- NOTE | 2021-08-13 08:07 | AAVD_ITS ---
Reason For Study: Aneurysm of iliac artery Aorta Measurements Aorta Doppler Measurements Proximal aorta measures2.34 x 2.37cm. in cross- Peak systolic flow velocities within the proximal sectional axis. aorta measure 108.9 cm/sec. Proximal aorta measures2.30cm. in longitudinal Peak systolic flow velocities within the mid aorta axis. measure 92.4 cm/sec. Mid aorta measures2.15 x 2.17cm. in cross- Peak systolic flow velocities within the distal sectional axis. aorta measure 53.6 cm/sec. Mid aorta measures2.12cm. in longitudinal axis. Distal aorta measures2.00 x 2.00cm. in cross- sectional axis. Distal aorta measures2.00cm. in longitudinal axis. Left Iliac Artery Left iliac artery measures 2.26 x 2.28 cm. in the cross-sectional axis. Left iliac artery measures 2.25 cm. in the longitudinal axis. Peak systolic velocity in the left iliac artery measures 96.1 cm/sec. Right Iliac Artery Right iliac artery measures 1.29 x 1.27 cm. in the cross-sectional axis. Right iliac artery measures 1.29 cm. in the longitudinal axis. Peak systolic velocity in the right iliac artery measures 63.4 cm/sec. Procedure Aorta IVC Iliac vasculature or bypass grafts [id number]. Exam performed in department. VL/Abd Aortic/IVC Duplex scan Interpretation Summary No evidence of aortic iliac aneurysm or stenosis noted. Ordering Physician: Adolfo Ha Referring Physician: Rito Diehl Performed By: Jeanette Doyle RVT
== END 2021-08-13 23:59 | disposition home or self-care (01) ==
PROVIDERS: PCP Family Medicine; Referring Provider Surgery Vascular Surgery; Visit Provider Surgery Vascular Surgery
DX: I72.3 Aneurysm of iliac artery (principal); M79.604 Pain in right leg; I83.891 Varicose veins of right lower extremity with other complications; I10 Essential (primary) hypertension; R10.9 Unspecified abdominal pain
CPT/HCPCS: 93978

== ENCOUNTER → 2021-10-01 | Outpatient (CLI) | payer MEDICARE, SELFPAY ==
--- NOTE | 2021-10-01 09:17 | ART_ITS ---
Reason For Study: screw foot deformity, neuropathy Procedure A bilateral lower extremity continuous wave Doppler with analog waveform analysis,segmental pressures,and ankle brachial indexes without exercise. Left Segmental Pressures Left brachial= 143mmHg. Left posterior tibial artery = 151mmHg. Left dorsalis pedis artery = 168mmHg. Left digit = 154 mmHg. The left dorsalis pedis waveforms are triphasic. The left posterior tibial artery waveforms are triphasic. Right Segmental Pressures Right brachial= 147mmHg. Right posterior tibial artery = 189mmHg. Right dorsalis pedis artery = 159mmHg. Right digit = 150 mmHg. The right dorsalis pedis waveforms are triphasic. The right posterior tibial artery waveforms are triphasic. Indices The right ankle brachial index by the dorsalis pedis is 1.08. The right ankle brachial index by the posterior tibial artery is 1.29. The right digital-brachial index is 1.02. The left ankle brachial index by the dorsalis pedis is 1.14. The left ankle brachial index by the posterior tibial artery is 1.03. The left digital-brachial index is 1.05. VL/Lower Ext Art Exam w/o Exercis Interpretation Summary Triphasic Doppler waveforms are noted at ankle level bilaterally. Pulse-volume recordings appear satisfactory at all levels bilaterally. Resting ankle-brachial indices are norm al bilaterally. Digital-brachial indices are normal bilaterally. There is no evidence of significant arterial occlusive disease in the lower ext remities bilaterally. Ordering Physician: Dom Landin Performed By: Gonzalo Tapia RVT
== END | disposition home or self-care (01) ==
PROVIDERS: PCP Family Medicine; Visit Provider Orthopaedic Surgery
DX: M20.42 Other hammer toe(s) (acquired), left foot (principal); I79.8 Other disorders of arteries, arterioles and capillaries in diseases classified elsewhere; M21.6X9 Other acquired deformities of unspecified foot; G62.9 Polyneuropathy, unspecified
CPT/HCPCS: 93923

== ENCOUNTER → 2021-10-22 | Outpatient (CLI) | payer MEDICARE, SELFPAY ==
[2021-10-22 17:40] LABS: Absolute Lymphocyte Count 2.03 X10^3/uL (0.83-4.51); Absolute Neutrophil Count 4.9 X10^3/uL (2.0-7.7); Basophil# 0.03 X10^3/uL; Basophil% 0.4 % (0-1); Eosinophil# 0.08 X10^3/uL; Eosinophils% 1.1 % (0-5); Hematocrit 43.2 % (40-54); Hemoglobin 14.5 g/dL (13.0-16.5); Lymphocyte # 2.03 X10^3/ul (0.83-4.51); Lymphocyte % 26.9 % (19-41); Mean Corp Hgb Conc 33.6 g/dL (32-36); Mean Corpuscular Hgb 31.6 pg (27.0-32.0); Mean Corpuscular Volume 94.1 fL (80-94); Mean Platelet Vol. 10.5 fl (6.2-12.0); Monocyte# 0.53 X10^3/uL; NRBC Flagged by Analyzer 0 % (0-5); Neutrophil # 4.87 X10^3/uL (2.7-7.7); Neutrophil % 64.3 % (47-70); Platelet Count 174 K/mm3 (150-450); RBC Distribution Width CV 14.5 % (11.6-14.6); RBC Distribution Width SD 49.5 fl (35.1-43.9); Red Blood Count 4.59 M/mm3 (4.6-6.2); White Blood Count 7.6 K/mm3 (4.4-11.0)
[2021-10-22 18:14] LABS: ALB/GLOB Ratio 1.2 RATIO (0.9-2.4); AST(SGOT) 27 U/L (15-37); Alanine Aminotransfer ALT/SGPT 28 U/L (16-61); Albumin, Serum 3.8 g/dL (3.2-5.0); Alkaline Phosphatase 97 U/L (45-117); Anion Gap 7 (5-15); BUN 27 mg/dL (7-18); BUN/Creat Ratio 19.4 RATIO (10-20); Calcium,Total 9.9 mg/dL (8.5-10.1); Chloride 103 mmol/L (98-107); Creatinine, Serum 1.39 mg/dL (0.70-1.30); EST Glomerular Filtration Rate 52 mL/min (>60); Est Glom Filt Rate - Afr Amer 63 mL/min (>60); Globulin 3.3 g/dL (2.2-4.2); Glucose 101 mg/dL (74-106); PSA,Total - Annual Screen 0.84 ng/mL (0.00-4.00); Potassium 3.7 mmol/L (3.5-5.1); Protein, Total 7.1 g/dL (6.4-8.2); Sodium Level 135 mmol/L (136-145); Thyroid Stim Hormone (TSH) 1.82 uIU/mL (0.358-3.74); Uric Acid 5.5 mg/dL (3.5-7.2)
== END | disposition home or self-care (01) ==
LOC: MTLAB 16:18
PROVIDERS: PCP Family Medicine; Referring Provider Family Medicine; Visit Provider Family Medicine
DX: R41.3 Other amnesia (principal); M10.9 Gout, unspecified; I10 Essential (primary) hypertension; E29.1 Testicular hypofunction; Z12.5 Encounter for screening for malignant neoplasm of prostate
CPT/HCPCS: 36415; 80053; 84153; 84403; 84443; 84550; 85025; G0103

== ENCOUNTER → 2022-09-10 | Outpatient (CLI) | payer MEDICARE, SELFPAY ==
[2022-09-10 09:54] LABS: Absolute Lymphocyte Count 1.83 X10^3/uL (0.83-4.51); Basophil# 0.05 X10^3/uL; Basophil% 0.8 % (0-1); Eosinophil# 0.19 X10^3/uL; Eosinophils% 2.9 % (0-5); Hematocrit 47.6 % (40-54); Hemoglobin 15.7 g/dL (13.0-16.5); Lymphocyte # 1.83 X10^3/ul (0.83-4.51); Lymphocyte % 27.9 % (19-41); Mean Corpuscular Hgb 31.8 pg (27.0-32.0); Mean Corpuscular Volume 96.4 fL (80-94); Mean Platelet Vol. 10.7 fl (6.2-12.0); Monocyte# 0.49 X10^3/uL; Monocyte% 7.5 % (0-10); NRBC Flagged by Analyzer 0 % (0-5); Neutrophil # 3.97 X10^3/uL (2.7-7.7); Neutrophil % 60.3 % (47-70); Platelet Count 179 K/mm3 (150-450); RBC Distribution Width CV 14.2 % (11.6-14.6); RBC Distribution Width SD 49.8 fl (35.1-43.9); Red Blood Count 4.94 M/mm3 (4.6-6.2); White Blood Count 6.6 K/mm3 (4.4-11.0)
[2022-09-10 10:09] LABS: Hemoglobin A1c 5.6 % (3.8-5.6)
[2022-09-10 10:13] LABS: ALB/GLOB Ratio 1.1 RATIO (0.9-2.4); AST(SGOT) 23 U/L (15-37); Alanine Aminotransfer ALT/SGPT 30 U/L (16-61); Albumin, Serum 3.9 g/dL (3.2-5.0); Alkaline Phosphatase 124 U/L (45-117); Anion Gap 3 (5-15); BUN 24 mg/dL (7-18); BUN/Creat Ratio 19.5 RATIO (10-20); Calcium,Total 9.9 mg/dL (8.5-10.1); Chloride 105 mmol/L (98-107); Cholesterol 172 mg/dL (200); Creatinine, Serum 1.23 mg/dL (0.70-1.30); EST Glomerular Filtration Rate 60 mL/min (>60); Est Glom Filt Rate - Afr Amer 73 mL/min (>60); Globulin 3.5 g/dL (2.2-4.2); Glucose 99 mg/dL (74-106); High Density Lipoprotein 38 mg/dL; PSA,Total- Diagnostic 0.77 ng/mL (0.0-4.0); Potassium 3.9 mmol/L (3.5-5.1); Protein, Total 7.4 g/dL (6.4-8.2); Sodium Level 137 mmol/L (136-145); T4 Free Direct 0.98 ng/dL (0.76-1.46); Triglycerides 91 mg/dL; Very Low Density Lipoprotein 18 mg/dL (5-40)
== END | disposition home or self-care (01) ==
LOC: LAB 08:36
PROVIDERS: PCP Nurse Practitioner Family; Referring Provider Nurse Practitioner Family; Visit Provider Nurse Practitioner Family
DX: Z00.00 Encounter for general adult medical examination without abnormal findings (principal); M10.9 Gout, unspecified; I10 Essential (primary) hypertension; R73.01 Impaired fasting glucose; N40.1 Benign prostatic hyperplasia with lower urinary tract symptoms; R35.1 Nocturia; E34.9 Endocrine disorder, unspecified; Z13.29 Encounter for screening for other suspected endocrine disorder
CPT/HCPCS: 36415; 80053; 80061; 83036; 84153; 84403; 84439; 84443; 85025

== ENCOUNTER 2023-01-31 08:30 | Outpatient (RCR) | payer MEDICARE, SELFPAY ==
--- NOTE | 2022-12-05 09:02 | HP.PTEVAL ---
Patient's Visit Information Visit Information Visit Information: IMAN NDIAYE is a 82 year old M referred to Physical Therapy by Dr. Rakesh Mcclendon MD with a diagnosis of STENOSIS OF LATERAL RECESS OF LUMBAR SPINE. Date of Evaluation: 12/05/22 Physical Therapist: Floridalma Marc PT, Cert MDT Visit Plan Frequency: 2-3x /Week Duration: 4-6 Weeks Plan: *CHECK AUTH NEXT VISIT: RECORD # OF VISITS APPROVED AND EXPIRATION DATE. CHECK CODES APPROVED WITH POC* GAIT TRAINING. POSTURE CORRECTION/STRENGTHENING, INSTRUCTION IN APPROPRIATE BODY MECHANICS AND ACTIVITY MODIFICATIONS. DLS STARTING WITH A NEUTRAL SPINE PROGRESSING ROM TOLERATED. NAYELI LE ROM, STRETCHING AND STRENGTHENING. HEP INSTRUCTION. 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 LIVES WITH . IS ABLE TO TAKE CARE OF HERSELF. Present symptoms: NAYELI LOW BACK PAIN. TINGLING IN TOES ON R. PAIN IN L THIGH. NAYELI HIP PAIN AND PAIN INTO L THIGH TOO. NAYELI LE WEAKNESS. Present since: 20 YEARS. FLARE UP IN AUGUST. PATIENT REPORTS TOE TINGLING FOR YEARS. Pain Scale: WORST 7/10, LEAST 0/10 Currently: 1/10 Is it getting better, worse or staying the same: GETTING BETTER Commenced as a result of: LLE LUL HORSE IN THE MIDDLE OF THE NIGHT. Symptoms at onset: L LE LUL HORSE Worse: WALKING, LOADING AND UNLOADING THE SCREEN STRETCHER, BENDING, GETTING IN AND OUT OF SEMI TRUCK, STANDING, LYING DOWN PROVOKES TOE TINGLING. Better: SITTING, TRAMADOL, DRIVING THERE IS NO PAIN. ALEVE, CBD CREAM. Disturbed sleep: YES Previous history/Previous treatment: PHYSICAL THERAPY. LUMBAR FUSION 2021 - DR. MCCLENDON. LUMBAR GIANCARLO'S YEARS AGO (APPROX 2004) WITH BENEFIT. NO HIP SX'S. R TKR 2013. Treatment this episode: NONE Coughing/sneezing/straining: NEGATIVE Gait: PATIENT REPORTS HE IS BENT OVER NOW AND SOME DAYS HE HAS TROUBLE LIFTING HIS LEFT LEG TO WALK - SOMETIMES I SCOOT IT. Bowel or Bladder Dysfunction: NO Accidents: NO Unexplained weight loss: NO Imaging: PATIENT REPORTS RECENT LUMBAR X-RAYS AT [facility] SHOWING PRESSURE ON A NERVE CAUSING HIS PAIN. SURGERY NOT RECOMMENDED BY DR. MCCLENDON PER PATIENT REPORT. PMH/Recent major surgery: L TOE SURGERY - FOR HAMMER TOES - 2020. CURRENTLY HAS SKIN CANCER ON HIS HEAD. NAYELI LE SX'S IN 60'S AND 70'S FOR CIRCULATION AND ORTHOPEDIC. FALL 2018 AND DAMAGED R SHLD - R SHLD SURGRY. H/O R FOOT FX. Objective Objective: Sitting/Standing Posture: POOR. RH. RH'S. DECREASED LORDOSIS. INCREASED TRUNK FLEXION. SCOLIOSIS Active Correction of posture: WORST - ONLY ABLE TO PARTIALLY CORRECT. Other Observations: THIS PATIENT ABMULATES INDEP'LY INTO PT WITHOUT ANY AD OR LOB. HE WALKS WITH NAYELI TOEING OUT R>LEFT AND DECREASE TOE OFF PHASE OF GAIT NAYELI. DECREASED STRIDE LENGTH NAYELI AND INCREASED SCOLIOTIC TRUNK FLEXION. APPEARS TO BE EQUAL WEIGHT BEARING TIME NAYELI LE'S. PATIENT REPORTS HE IS WEARING ORTHOTICS. FAIR CADANCE. Sensory deficit: DECREASED L ANTERIOR THIGH LIGHT TOUCH COMPARED TO RIGHT. ROM deficit: TIGHT NAYELI HS'S AND GASTROC SOLEUS COMPLEX'S L > R Motor deficit: R LE: HIP 5/5, KNEE 5/5, ANKLE 5/5. L LE: HIP 4/5, KNEE 4/5, ANKLE 4/5. Dural Signs: NEGATIVE NAYELI LE'S. Lumbar mvmt loss: flex - MOD TO CHANDAN ext - CHANDAN R SG - CHANDAN L SG - CHANDAN PATIENT C/O INCREASED LBP WITH LUMBAR ROM TESTING ALL PLANES. Core strength: POOR Palpation: NO ACUTE TENDERNESS IN LUMBAR AREA BUT VERY TIGHT NAYELI PARASPINALS. OTHER: SEE STS TEST BELOW. Balance/Special Test Scores Oswestry Low Back Score: 18 30 Second Chair Rise Test Seconds: 8 Goals Goal 1:: DECREASE C/O LOW BACK AND NAYELI LE SX'S. Goal Time Frame: 4-6 Weeks Goal 2:: IMPROVE PERSONAL CARE, LIFTING, WALKING, STANDING, SLEEP, SOCIAL LIFE, TRAVEL AND HOMEMAKING FUNCTION Goal Time Frame: 4-6 Weeks Goal 3:: INSTRUCT IN PROPHYLAXIS Goal Time Frame: 4-6 Weeks Anticipated Interventions Patient/Client Instruction: Educate patient on: Condition, Plan of Care and Risk Factors For the Purpose of:: To improve self management Therapeutic Exercise to Include: Strength training, Body mechanics, Postural training, Flexibilty training, Neuromotor development, In an aquatic setting and Dynamic Lumbar Stabilization For the Purpose of:: To decrease pain, To increase ROM, To improve muscle performance and motor function, To increase tolerance to activity/condition/position, To improve ability of physical actions for home/community/work/leisure and To improve gait and locomotor functions Text: Thank you for the opportunity to evaluate your patient. For Medicare and Medicare HMO plans, please review the plan of care and approve it. It will need to be FAXED BACK to us at [phone] for Medicare purposes. For Medicare only, by signing this I certify the plan of care. Please let me know if there are questions or concerns regarding this plan of care. Physician Signature: Date:
--- NOTE | 2023-01-07 09:48 | HP.PTREVAL ---
Re-Evaluation Intro: Dr. Rakesh Phelps MD, It has been my pleasure to treat IMAN NDIAYE over the last 6 visits for STENOSIS OF LATERAL RECESS OF LUMBAR SPINE. Please see the progress note below for an update on the physical therapy plan of care! Subjective Subjective: PATIENT REPORTS HE IS A LOT BETTER. HE STATES HE IS ABOUT 60% RECOVERED FROM HIS FLARE UP WITH THE LUL HORSE. PATIENT STATES HE WOULD LIKE TO CONTINUE PT AND LEARN TO USE THE MACHINES AND USE HIS [employer]BER[employer]IP IF IT IS SAFE TO DO SO. PATIENT REPORTS HE ISN'T HAVING ANY PAIN RIGHT NOW AND HE RELATES THAT TO NOT MOVING AROUND MUCH YET TODAY. GETTING UP TO 7/10 PAIN AT ITS WORST NOW IN HIS LEFT LOW BACK AND IT ISN'T EVERYDAY. SOMETIMES IT GOES TO THE RIGHT LOW BACK IF HE PUSHES IT. Objective Objective/Function: PATIENT WAS SEEN TODAY FOR RE-ASSESSMENT OF PROGRESS TOWARD THE SET PT GOALS AND THE NEED FOR FURTHER PHYSICAL THERAPY VS READINESS FOR DISCHARGE. PATIENT IS IMPROVING. HE IS A GOOD CANDIDATE TO CONTINUE PT BASED ON PRGRESS MADE AND ROOM FOR FURTHER IMPROVEMENT. HE MAY BE A CANDIDATE FOR INDEP GYM EX BUT NEEDS FURTHER INSTRUCTION TO SEE IF HE CAN DO THIS SAFELY. UPON EXAM TODAY: THIS PATIENT ABMULATES INDEP'LY INTO PT WITHOUT ANY AD OR LOB. HE WALKS WITH NAYELI TOEING OUT R>LEFT AND DECREASE TOE OFF PHASE OF GAIT NAYELI. DECREASED STRIDE LENGTH NAYELI AND INCREASED SCOLIOTIC TRUNK FLEXION. APPEARS TO BE EQUAL WEIGHT BEARING TIME NAYELI LE'S. PATIENT REPORTS HE IS WEARING ORTHOTICS. FAIR CADANCE. Sensory deficit: DECREASED L ANTERIOR THIGH LIGHT TOUCH COMPARED TO RIGHT. ROM deficit: TIGHT NAYELI HS'S AND GASTROC SOLEUS COMPLEX'S L > R Motor deficit: R LE: HIP 5/5, KNEE 5/5, ANKLE 5/5. L LE: HIP 4/5, KNEE 5/5, ANKLE 5/5. Dural Signs: NEGATIVE NAYELI LE'S. Lumbar mvmt loss: flex - MOD ext - CHANDAN R SG - CHANDAN L SG - CHANDAN PATIENT DENIES PAIN WITH LUMBAR ROM TESTING TODAY. SEE IMPROVED STS TEST AND OSWESTRY SCORES BELOW. Plan Plan Plan: CONTINUE PT 1-2 TIMES A WK X 6-8 WKS FOR GENERAL STRENGTHENING AND GYM EX INSTRUCTION TO HELP MEET SET GOALS. PATINET IS AGREEABLE. Balance/Gait/Functional tests Balance/Special Test Scores Oswestry Low Back Score: 15 30 Second Chair Rise Test Seconds: 10 Goals Goals Goal 1:: DECREASE C/O LOW BACK AND NAYELI LE SX'S. Goal Time Frame: 4-6 Weeks Goal Progress: Progressing Goal 2:: IMPROVE PERSONAL CARE, LIFTING, WALKING, STANDING, SLEEP, SOCIAL LIFE, TRAVEL AND HOMEMAKING FUNCTION Goal Time Frame: 4-6 Weeks Goal Progress: Progressing Goal 3:: INSTRUCT IN PROPHYLAXIS Goal Time Frame: 4-6 Weeks Goal Progress: Progressing Anticipated Interventions Anticipated Interventions Patient/Client Instruction: Educate patient on: Condition, Plan of Care and Risk Factors For the Purpose of:: To improve self management Therapeutic Exercise to Include: Strength training, Body mechanics, Postural training, Flexibilty training, Neuromotor development, In an aquatic setting and Dynamic Lumbar Stabilization For the Purpose of:: To decrease pain, To increase ROM, To improve muscle performance and motor function, To increase tolerance to activity/condition/position, To improve ability of physical actions for home/community/work/leisure and To improve gait and locomotor functions Re-Evaluation Ending Re-evaluation ending: Please do not hesitate to contact me at [phone] by phone or if you have questions or concerns regarding this new plan of care! Sincerely, Floridalma Marc PT, Cert MDT
== END 2023-01-31 19:00 | disposition home or self-care (01) ==
LOC: PT 08:30
PROVIDERS: PCP Nurse Practitioner Family; Referring Provider Orthopaedic Surgery Orthopaedic Surgery of the Spine; Visit Provider Orthopaedic Surgery Orthopaedic Surgery of the Spine
DX: M48.061 Spinal stenosis, lumbar region without neurogenic claudication (principal)
CPT/HCPCS: 97110; 97162; 97164; 97530

== ENCOUNTER 2023-02-08 03:23 | Emergency (ER) | payer MEDICARE, SELFPAY ==
[2023-02-08 03:24] VITALS: BP 115/63; PULSE 62; RESP 16; TEMP 36.3; O2SAT 96; BMI 29.5
[2023-02-08] MEDS: 0.9% Normal Saline (1000mL) 1,000 ML 999 ML IV (04:53)
[2023-02-08 04:59] LABS: Absolute Lymphocyte Count 1.32 X10^3/uL (0.83-4.51); Absolute Neutrophil Count 9.5 X10^3/uL (2.0-7.7); Basophil# 0.06 X10^3/uL; Basophil% 0.5 % (0-1); Eosinophils% 0.8 % (0-5); Hematocrit 44.3 % (40-54); Hemoglobin 14.5 g/dL (13.0-16.5); Lymphocyte # 1.32 X10^3/ul (0.83-4.51); Lymphocyte % 11.1 % (19-41); Mean Corp Hgb Conc 32.7 g/dL (32-36); Mean Corpuscular Hgb 31.4 pg (27.0-32.0); Mean Corpuscular Volume 95.9 fL (80-94); Mean Platelet Vol. 10.5 fl (6.2-12.0); Monocyte# 0.88 X10^3/uL; Monocyte% 7.4 % (0-10); NRBC Flagged by Analyzer 0 % (0-5); Neutrophil # 9.47 X10^3/uL (2.7-7.7); Neutrophil % 79.5 % (47-70); Platelet Count 160 K/mm3 (150-450); RBC Distribution Width CV 14.8 % (11.6-14.6); Red Blood Count 4.62 M/mm3 (4.6-6.2); White Blood Count 11.9 K/mm3 (4.4-11.0)
[2023-02-08 05:23] LABS: Anion Gap 4 (5-15); BUN 28 mg/dL (7-18); BUN/Creat Ratio 17.9 RATIO (10-20); Calcium,Total 10.1 mg/dL (8.5-10.1); Chloride 107 mmol/L (98-107); Creatinine, Serum 1.56 mg/dL (0.70-1.30); EST Glomerular Filtration Rate 46 mL/min (>60); Est Glom Filt Rate - Afr Amer 55 mL/min (>60); Estimated Creatinine Clearance 36.54 ml/min; Glucose 86 mg/dL (74-106); Magnesium 2.1 mg/dL (1.6-2.6); Potassium 3.2 mmol/L (3.5-5.1); Sodium Level 141 mmol/L (136-145)
--- NOTE | 2023-02-08 06:20 | EDS_ITS ---
HPI History of Present Illness Chief Complaint: Hypotension Informant: patient and family Narrative Narrative: Patient is an 82-year-old male from home with past medical history of hypertension BPH gout. He states he got up to use the bathroom this evening and felt dizzy. He states he was then sitting on the toilet and symptoms seem to worsen. He states he called out to his daughter and reportedly checked his blood pressure and it was low. Daughter has concerned that he is dehydrated as this has been a cause of similar symptoms in the past. Patient states that he has not had any bouts of vomiting or diarrhea but based on his initial symptoms and low BP at home he presents for evaluation [facility] Medical History (Updated 02/11/23 @ 01:[address] Pedro Luis Oliva, DO) HTN (hypertension) Home Medications Allopurinol 100 mg PO BID 06/29/18 [History Last Taken Unknown] Androgel 1.62 % topical BID 06/29/18 [History Last Taken Unknown] Folic Acid 1 mg PO DAILY 06/29/18 [History Last Taken Unknown] Gabapentin 300 mg PO BID 06/29/18 [History Last Taken Unknown] [place] 3 Fish Oil Softgel 360 mg PO BID 06/29/18 [History Last Taken Unknown] One Daily For Men Tablet 1 tab PO DAILY 06/29/18 [History Last Taken Unknown] Tamsulosin HCl 0.4 mg PO DAILY 06/29/18 [History Last Taken Unknown] Tramadol 50 mg PO PRN PRN Pain 06/29/18 [History Last Taken Unknown] Valsartan-Hctz 320-25 mg Tab 320 mg PO DAILY 06/29/18 [History Last Taken Unknown] Vitamin D3 5,000 iu PO PRN PRN Supplement Core Java Software Engineer 06/29/18 [History Last Taken Unknown] traZODone 50 mg PO DAILY 06/29/18 [History Last Taken Unknown] potassium chloride 10 mEq capsule,extended release 10 meq PO DAILY 10 days #10 caps 02/08/23 [Rx Last Taken Unknown] Allergy/AdvReac Type Severity Reaction Status Date / Time peanut Allergy Hives Verified 02/08/23 03:24 Sulfa (Sulfonamide Allergy Hives Verified 02/08/23 03:24 Antibiotics) Social History Smoking Status: Never smoker ROS ROS ED Constitutional Constitutional ED: Denies chills or fever(s) Eyes Eyes: Denies change in vision ENT ENT ED: Denies sore throat Cardiovascular Cardiovascular: Denies chest pain Respiratory/Chest Respiratory/Chest: Denies cough or dyspnea Gastrointestinal Gastrointestinal: Denies abdominal pain, diarrhea, nausea or vomiting Genitourinary Genitourinary ED: Denies dysuria Musculoskeletal Musculoskeletal: Denies myalgias Integumentary Denies rash Neurologic Neurologic: Reports other Details: Positive dizziness ; Denies headache(s) Hematologic/Lymphatic Hematologic/Lymphatic: Denies easy bleeding or easy bruising EXAM Physical Exam Const Vital Signs: 02/08/23 03:24 02/08/23 03:24 Temperature 97.3 F L Temperature Source Temporal Pulse Rate 62 Respiratory Rate 16 Respiratory Effort Normal Respiratory Pattern Normal Blood Pressure 115/63 Blood Pressure Mean 80 Pulse Ox 96 Positive well nourished and well developed General Appearance ED: well developed HEENT Reports dry mucous membranes HEENT Narrative: Mucous membranes are dry and tacky. No signs of infection noted in the posterior pharynx. Mouth ED: Yes dry mucous membranes Mouth: dry mucous membranes Eyes PERRL and EOMs intact bilaterally General Eye ED: Negative for pale conjunctiva Neck supple Neck Narrative: No nuchal rigidity or meningeal signs noted Resp normal respiratory effort and clear to auscultation bilaterally Cardio regular rate and regular rhythm Rate: other Other Details: Radial and carotid pulses are equal and symmetric GI normal to inspection, nondistended, normoactive bowel sounds, non-tender, non- distended and no masses GI Narrative: No voluntary guarding or rigidity. No pulsatile mass or fluid wave Auscultation: normoactive bowel sounds Palpation: soft Extremity normal to inspection Neuro oriented x3, CN's II-XII intact bilaterally and no sensory deficits noted Neuro Narrative: Cranial nerves II through XII are grossly intact there are no focal neurologic deficits. Pronator drift no dysmetria no truncal ataxia. NIH stroke scale score of 0 No nystagmus noted Sensorium / Orientation: alert Motor Exam: strength 5/5 throughout Psych mental status grossly normal Skin no rashes or lesions noted Skin Narrative: Skin turgor is increased MDM MDM MDM Narrative Medical decision making narrative: Patient presented to the ER with stable vitals and normal neuro exam. He has dehydration changes by physical exam and the fact that he felt dizzy upon standing would most correlate with dehydration and orthostasis. His neuro exam is normal at this time and therefore I feel no need for head CT. However as dizziness could be related to acute blood loss anemia acute kidney injury or electrolyte derangement I did elect to check basic laboratory values. Patient's kidney function was slightly elevated at 1.6 which would correlate with his physical exam showing dehydration but otherwise no clinically significant findings. Patient was given fluid and reported feeling better and his blood pressure actually came hypertensive while in the ER. Therefore at this time with resolution of symptoms and patient feeling better after IV fluid he is otherwise safe for discharge. Lab Data Attestation: I reviewed the patient's lab results. Labs: Laboratory Results - last 24 hr 02/08/23 04:45 WBC 11.9 H RBC 4.62 Hgb 14.5 Hct 44.3 MCV 95.9 H MCH 31.4 MCHC 32.7 RDW Std Deviation 52.0 H RDW Coeff of Gemma 14.8 H Plt Count 160 MPV 10.5 Immature Gran % (Auto) 0.700 Neut % (Auto) 79.5 H Lymph % (Auto) 11.1 L [place] % (Auto) 7.4 Eos % (Auto) 0.8 Baso % (Auto) 0.5 Absolute Neuts (auto) 9.5 H Absolute Lymphs (auto) 1.32 Nucleated RBC % 0 Sodium 141 Potassium 3.2 L Chloride 107 Carbon Dioxide 30.0 Anion Gap 4 L BUN 28 H Creatinine 1.56 H Estim Creat Clear Calc 36.54 Est GFR (MDRD) Af Amer 55 L Est GFR (MDRD) Non-Af 46 L BUN/Creatinine Ratio 17.9 Glucose 86 Calcium 10.1 Magnesium 2.1 Discharge Plan Triage Chief Complaint: Hypotension ED Provider: Pedro Luis Oliva Dx/Rx/DC Orders Clinical Impression: Dehydration, Acute hypokalemia, Hypertension Instructions: Dehydration, ED Hypokalemia Prescriptions: New potassium chloride 10 mEq capsule, extended release 10 meq PO DAILY 10 Days Qty: 10 0RF No Action Valsartan-Hctz 320-25 mg Tab 320 mg PO DAILY Allopurinol 100 mg PO BID Androgel 1.62 % topical BID Folic Acid 1 mg PO DAILY Gabapentin 300 mg PO BID One Daily For Men Tablet 1 tab PO DAILY Tamsulosin HCl 0.4 mg PO DAILY traZODone 50 mg PO DAILY [place] 3 Fish Oil Softgel 360 mg PO BID Tramadol 50 mg PO PRN PRN (Reason: Pain) Vitamin D3 5,000 iu PO PRN PRN (Reason: Supplement Core Java Software Engineer) Primary Care Provider: Shirley Wood Referrals: Shirley Wood, SKIVING MACHINE OPERATOR-C [Primary Care Provider] - Activity Restrictions/Additional Instructions: Your work-up showed changes consistent with dehydration and your potassium is slightly low at 3.2. Keep yourself well-hydrated and take the potassium supplement as directed to help bring this value to a normal level. Return to the ER should you have any further concerns Disposition Disposition: Home, Self Care Discharge Date/Time: 02/08/23 07:56
[2023-02-08 07:16] VITALS: BP 163/96; PULSE 55; RESP 15; O2SAT 96
[2023-02-08] MEDS: Potassium Chloride Oral Tablet 10 MEQ PO (07:20)
== END 2023-02-08 07:56 | disposition home or self-care (01) ==
PROVIDERS: Emergency Provider Emergency Medicine; PCP Nurse Practitioner Family; Visit Provider Emergency Medicine
DX: E86.0 Dehydration (principal); E87.6 Hypokalemia; I10 Essential (primary) hypertension; Z79.899 Other long term (current) drug therapy; M10.9 Gout, unspecified; N40.0 Benign prostatic hyperplasia without lower urinary tract symptoms
CPT/HCPCS: 80048; 83735; 85025; 99284; J7030; A4216

== ENCOUNTER → 2023-05-01 | Outpatient (CLI) | payer MEDICARE, SELFPAY ==
[2023-05-01 12:25] LABS: Absolute Lymphocyte Count 2.13 X10^3/uL (0.83-4.51); Absolute Neutrophil Count 5.3 X10^3/uL (2.0-7.7); Basophil# 0.06 X10^3/uL; Basophil% 0.7 % (0-1); Eosinophil# 0.18 X10^3/uL; Eosinophils% 2.2 % (0-5); Hematocrit 42.8 % (40-54); Lymphocyte # 2.13 X10^3/ul (0.83-4.51); Lymphocyte % 25.9 % (19-41); Mean Corp Hgb Conc 32.7 g/dL (32-36); Mean Corpuscular Hgb 31.5 pg (27.0-32.0); Mean Corpuscular Volume 96.2 fL (80-94); Mean Platelet Vol. 10.5 fl (6.2-12.0); Monocyte# 0.52 X10^3/uL; Monocyte% 6.3 % (0-10); NRBC Flagged by Analyzer 0 % (0-5); Neutrophil % 64.5 % (47-70); Platelet Count 186 K/mm3 (150-450); RBC Distribution Width CV 14.4 % (11.6-14.6); RBC Distribution Width SD 50.3 fl (35.1-43.9); Red Blood Count 4.45 M/mm3 (4.6-6.2); White Blood Count 8.2 K/mm3 (4.4-11.0)
[2023-05-01 12:57] LABS: AST(SGOT) 24 U/L (15-37); Alanine Aminotransfer ALT/SGPT 24 U/L (16-61); Albumin, Serum 3.5 g/dL (3.2-5.0); Alkaline Phosphatase 110 U/L (45-117); Anion Gap 5 (5-15); BUN 37 mg/dL (7-18); BUN/Creat Ratio 27.8 RATIO (10-20); Chloride 106 mmol/L (98-107); Creatinine, Serum 1.33 mg/dL (0.70-1.30); EST Glomerular Filtration Rate 55 mL/min (>60); Est Glom Filt Rate - Afr Amer 66 mL/min (>60); Globulin 3.5 g/dL (2.2-4.2); Glucose 144 mg/dL (74-106); Sodium Level 138 mmol/L (136-145)
== END | disposition home or self-care (01) ==
LOC: MTLAB 10:29
PROVIDERS: PCP Nurse Practitioner Family; Referring Provider Nurse Practitioner Family; Visit Provider Nurse Practitioner Family
DX: I10 Essential (primary) hypertension (principal); E87.6 Hypokalemia
CPT/HCPCS: 36415; 80053; 85025

== ENCOUNTER → 2023-06-03 | Outpatient (CLI) | payer MEDICARE, SELFPAY ==
--- OUTSIDE RECORDS SUMMARY | 2023-06-03 12:21 | XMS RPT_ITS | CCD ---
Author Name Unknown Address [address] [place] [address] Organization [facility] Care Team Providers Care Geographic Information Systems Manager Name Role Phone Dom Landin MD Unavailable Allergies Allergy Classification Reported Allergen(s) Allergy Type Date of Onset Reaction(s) Facility (1 source) House dust mite; Translations: [DUST MITES] allergy to substance 5 hay fever [facility] Work Phone: (1 source) peanut; Translations: [PEANUTS] food allergy 5 GI upset [facility] Work Phone: (1 source) Sulfacetamide Drug Allergy 4 [facility] Work Phone: (1 source) WOOL; Translations: [WOOL] allergy to substance 5 [facility] Work Phone: (1 source) PLANT POLLENS (HAY FEVER); Translations: [PLANT POLLENS (HAY FEVER)] allergy to substance 5 hay fever [facility] Work Phone: Medications Completed/Discontinued Medications Medication Drug Class(es) Dates Sig (Normalized) Sig (Original) acetaminophen 500 mg / diphenhydrAMINE hydrochloride 25 mg oral tablet (1 source) Histamine-1 Receptor Antagonist Start: 03-03-[address] TABS 1 tablet nightly DIPHENHYDRAMINE-APA P (SLEEP) TABS [id number] Nicki Corsaro [employer] acetaminophen 325 mg / oxyCODONE hydrochloride 5 mg oral tablet (1 source) Opioid Agonist Start: 10-06-2020 OXYCODONE-ACETAMINO PHEN 5-325 MG TABS 1/2 tablet twice daily OXYCODONE-ACETAMINO PHEN [id number] Marina Dorado PA-C allopurinol 100 mg oral tablet (1 source) Xanthine Oxidase Inhibitor Start: 03-03-2018 ALLOPURINOL 100 MG TABS 1 tablet twice daily ALLOPURINOL [id number] Nicki Corsaro [employer] BETAMETASONE #SP .05% (1 source) Start: 11-13-2018 BETAMETASONE #SP .05% as needed BETAMETASONE #SP .05% Andrae Dockery MD BUPIV-KAYLA 3/6% SSADY CREAM (1 source) Start: 11-13-2018 BUPIV-KAYLA 3/6% SSADY CREAM BUPIV-KAYLA 3/6% SSADY CREAM Andrae Dockery MD cholecalciferol 0.125 mg oral tablet (1 source) Vitamin D Start: 03-03-2018 VITAMIN D3 125 MCG (5000 UT) TABS 1 tablet daily CHOLECALCIFEROL [id number] Nicki Corsaro [employer] diphenhydrAMINE (1 source) Histamine-1 Receptor Antagonist Start: 03-03-2018 DIPHENHYDRAMINE HCL LIQD apply both legs nightly DIPHENHYDRAMINE HCL LIQD [id number] Nicki Corsaro [employer] folic acid 1 mg oral tablet (1 source) Start: 03-03-2018 FOLIC ACID 1 MG TABS 1 tablet daily FOLIC ACID [id number] Nicki Corsaro [employer] gabapentin 300 mg oral capsule (1 source) Anti-epileptic Agent Start: 03-03-2018 GABAPENTIN 300 MG CAPS 1 capsule 3 times daily GABAPENTIN [id number] Nicki Corsaro [employer] hydroCHLOROthiazide 25 mg / valsartan 320 mg oral tablet (1 source) Thiazide Diuretic, Angiotensin 2 Receptor Kaci Start: 03-03-2018 VALSARTAN-HYDROCHLO ROTHIAZIDE 320-25 MG TABS 1 tablet daily VALSARTAN-HYDROCHLO ROTHIAZIDE [id number] Nicki Corsaro [employer] JUICE PLUS FIBRE ORAL (NUTRITIONAL SUPPLEMENTS) (1 source) Start: 04-21-2014 JUICE PLUS FIBRE ORAL (NUTRITIONAL SUPPLEMENTS) twice daily Nicki Corro [employer] MULTIPLE VITAMINS-IRON (1 source) Start: 03-03-2018 STRESS B COMPLEX/IRON TABS 1 tablet daily MULTIPLE VITAMINS-IRON [id number] Nicki Lowellsaro [employer] MULTIPLE VITAMINS-MINERALS (1 source) Start: 04-21-2014 ONE-A-DAY MENS 50+ ADVANTAGE TABS 1 tablet once daily MULTIPLE VITAMINS-MINERALS [id number] Terena Quinteros RN OMEGA-3 FATTY ACIDS (1 source) Start: 03-03-2018 FISH OIL 1200 MG CAPS 1 capsule daily OMEGA-3 FATTY ACIDS [id number] Nicki Corsaro [employer] PLEXUS (1 source) Start: 03-03-2018 PLEXUS 1 tablet daily PLEXUS Nicki Lowellsaro [employer] PREVAGEN (1 source) Start: 11-13-2018 PREVAGEN 1 tablet daily PREVAGEN Andrae Dockery MD tamsulosin hydrochloride 0.4 mg oral capsule (1 source) alpha-Adrenergic Kaci Start: 04-21-2014 TAMSULOSIN HCL 0.4 MG CAPS 1 capsule daily TAMSULOSIN HCL [id number] Nicki Lowellsaro [employer] TESTOSTERONE GEL (1 source) Androgen Start: 03-03-2018 ANDROGEL PUMP GEL 2 pumps daily TESTOSTERONE GEL [id number] Nicki Lisaro [employer] traZODone hydrochloride 50 mg oral tablet (1 source) Serotonin Reuptake Inhibitor Start: 11-13-2018 TRAZODONE HCL 50 MG TABS 1 tablet daily TRAZODONE HCL [id number] Andrae Dockery MD Problems Active Problems Problem Classification Problem Date Documented Date Episodic/Chronic Acquired foot deformities (1 source) Hammer toe; Translations: [Other hammer toe(s) (acquired), left foot] Onset: 12-14-2020 12-14-2020 Chronic Acquired foot deformities (1 source) Hammer toe; Translations: [Other hammer toe(s) (acquired), right foot] Onset: 12-14-2020 12-14-2020 Chronic Other connective tissue disease (1 source) Presence of right artificial knee joint; Translations: [Knee joint replacement] Onset: 03-05-2018 03-05-2018 Chronic Other nervous system disorders (1 source) Neuropathy; Translations: [Polyneuropathy, unspecified] Onset: 12-14-2020 12-14-2020 Chronic Spondylosis; intervertebral disc disorders; other back problems (2 sources) Degeneration of lumbar intervertebral disc; Translations: [Other intervertebral disc degeneration, lumbar region] Onset: 03-17-2015 01-10-2020 Chronic Past or Other Problems Problem Classification Problem Date Documented Date Episodic/Chronic Acquired foot deformities (1 source) Deformity of foot; Translations: [Other acquired deformities of unspecified foot] Onset: 12-14-2020 12-14-2020 Episodic Other acquired deformities (1 source) Spondylolisthesis; Translations: [Spondylolisthesis, lumbar region] Onset: 08-25-2020 08-25-2020 Episodic Other connective tissue disease (1 source) Bursitis of hip; Translations: [Trochanteric bursitis, unspecified hip] Onset: 08-04-2020 08-04-2020 Episodic Other connective tissue disease (1 source) Iliotibial band friction syndrome of right knee; Translations: [Iliotibial band syndrome, right leg] Onset: 08-04-2020 08-04-2020 Episodic Other connective tissue disease (1 source) Full thickness rotator cuff tear; Translations: [Complete rotator cuff tear or rupture of right shoulder, not specified as traumatic] Onset: 10-14-2018 10-14-2018 Episodic Residual codes; unclassified (1 source) History of operative procedure on lumbar spinal structure; Translations: [Other specified postprocedural states] Onset: 10-06-2020 10-06-2020 Episodic Spondylosis; intervertebral disc disorders; other back problems (4 sources) Stenosis of lateral recess of lumbar spine; Translations: [Spinal stenosis, lumbar region without neurogenic claudication] Onset: 02-15-2015 09-11-2020 Episodic Unclassified (1 source) Problem Results Test Name Value Interpretation Reference Range Facil ity Vital Signs Date Time Vital Sign Value Performing Clinician Facility NEGATED: Highlighted [id number] 08:22-0400 Body height 175.26 cm Bertha Perez LPN [facility] [place] [facility] Work Phone: NEGATED: Highlighted [id number] 08:22-0400 Body height 175 cm Bertha Perez LPN [facility] Work Phone: NEGATED: Highlighted [id number] 08:22-0400 Body mass index (BMI) [Ratio] 28.9 kg/m2 Bertha Perez LPN [facility] Work Phone: NEGATED: Highlighted [id number] 08:22-0400 Body weight 88.45 kg Bertha Perez LPN [facility] Work Phone: NEGATED: Highlighted [id number]:220400 Body weight 89 kg Bertha Perez LPN [facility] Work Phone: Procedures Date Procedure Procedure Detail Performing Clinician Start: 09-03-2021 End: 09-03-2021 BP scrn no perf at interval Dom Landin MD Work Phone: Start: 09-03-2021 End: 09-03-2021 Calc BMI out nrm ana nof/u Dom Landin MD Work Phone: Start: 09-03-2021 End: 09-03-2021 Current tobacco non-user cad cap copd pv dm Dom Landin MD Work Phone: Start: 09-03-2021 End: 09-03-2021 Docrev cur meds by elig clin Dom Landin MD Work Phone: Start: 09-03-2021 End: 09-03-2021 Pain doc pos and plan Dom Landin MD Work Phone: Start: 09-03-2021 End: 09-03-2021 Patient encounter procedure Dom Landin MD Work Phone: Start: 01-27-2019 [object Object] Plan of Treatment Date Care Activity Detail Author Start: 09-03-2021 End: 09-03-2021 Patient encounter procedure Appointment [facility] Work Phone: Start: 09-03-2021 End: 09-03-2021 Non-invasive physiologic study extremity 3 levls Arterial PVR bilateral lower extremity - w/o exercise [facility] Work Phone: Start: 09-03-2021 End: 09-03-2021 Radex foot complete minimum 3 views [facility] Work Phone: Social History Date Type Detail Facility Start: 09-03-2021 End: 09-03-2021 Assertion [facility] Work [facility]: Clinical Note 06-29-2020 Note Date & Type Note Facility 06-29-2020 Note Patient Outreach ([place] VAMN) IMAN NDIAYE ([id number]) 1940 [facility] Date Time Provider Department 06/29/20 SHERINE STOUT During your visit today, we recorded the following information about you: Allergies As of Date: 06/29/2020 Noted Allergy Reaction SULFA (SULFONAMIDE ANTIBIOTICS) 07/19/2015 2 - Rash 4 - Hives Date Reviewed: 06/22/2019 Reviewed by: Edilma Oh MA - Fully Assessed Order(s):SARS-COVID VACCINE 1ST DOSE APPT [[id number]] Order #: [id number] FUTURE Prescriptions as of 06/29/2020 Sig: FOLIC ACID ORAL Take 1 mg by mouth. TRAZODONE 50 MG TABLET Take 50 mg by mouth daily at * ACETAMINOPHEN ORAL Take by mouth. BETAMETHASONE DIPROPIONATE 0.* DIPHENHYDRAMINE 25 MG-ACETAMI* Take by mouth. ALLOPURINOL 100 MG TABLET twice daily. TAMSULOSIN 0.4 MG CAPSULE Take 0.4 mg by mouth once tulio* ANDROGEL 20.25 MG/1.25 GRAM (* Apply 2 pumps to affected are* VALSARTAN 320 MG-HYDROCHLOROT* Take 1 tablet by mouth once d* DIPHENHYDRAMINE 50 MG CAPSULE Take 50 mg by mouth daily at * [id number] ACID-V* Take by mouth. 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 [facility] Work Phone: Instructions Note Date & Type Note Facility [facility] Work Phone: Summary Purpose Family History No Family History Records FoundNo Family History Records FoundNo Family History Records FoundNo Family History Records FoundThere may be information available, but it has not been provided by the sender. Advance Directives No Advanced Directives Records FoundNo Advanced Directives Records FoundNo Advanced Directives Records FoundNo Advanced Directives Records FoundThere may be information available, but it has not been provided by the sender. Chief Complaint Chief Complaint Description Start Date bilateral foot pain Preliminary chief co mplaint data, not yet signed by the author as of Additional Source Comments (unrecognized sect ion and content) No Status Records FoundNo Status Records FoundNo Status Records FoundNo Status Records Found INFORMATION SOURCE (unrecogn ized section and content) DATE CREATED AUTHOR AUTHOR'S ORGANIZ ATION 06/22/2019 [facility] DATE CREATED AUTHOR AUTHOR'S ORGANIZ ATION 06/22/2019 [facility] DATE CREATED AUTHOR AUTHOR'S ORGANIZ ATION 06/13/2021 [facility] Reason for Visit (unrecogniz ed section and content) FOR RECORDS PERTAINING TO PATIENTS WHO ARE OR HAVE BEEN ENROLLED IN A CHEMICAL DEPENDENCY/SUBSTANCEABUSE PROGRAM, SOME INFORMATION MAY BE OMITTED. This clinical summary was aggregated from multiple sources. Caution should be exercised in using it in the provision of clinical care. This summary normalizes information from multiple sources, and as a consequence, information in this document may materially change the coding, format and clinical context of patient data. In addition, data may be omitted in some cases. CLINICAL DECISIONS SHOULD BE BASED ON THE PRIMARY CLINICAL RECORDS. [employer] provides no warranty or guarantee of the accuracy or completeness of information in this document.
[2023-06-03 15:55] LABS: Basophil# 0.04 X10^3/uL; Basophil% 0.6 % (0-1); Eosinophil# 0.15 X10^3/uL; Eosinophils% 2.3 % (0-5); Hematocrit 43.2 % (40-54); Lymphocyte % 28.6 % (19-41); Mean Corp Hgb Conc 32.4 g/dL (32-36); Mean Corpuscular Hgb 31.4 pg (27.0-32.0); Mean Corpuscular Volume 96.9 fL (80-94); Mean Platelet Vol. 11.3 fl (6.2-12.0); Monocyte% 7.5 % (0-10); NRBC Flagged by Analyzer 0 % (0-5); Neutrophil # 4.03 X10^3/uL (2.7-7.7); Neutrophil % 60.7 % (47-70); Platelet Count 169 K/mm3 (150-450); RBC Distribution Width CV 14.6 % (11.6-14.6); RBC Distribution Width SD 52.1 fl (35.1-43.9); Red Blood Count 4.46 M/mm3 (4.6-6.2); White Blood Count 6.6 K/mm3 (4.4-11.0)
[2023-06-03 16:28] LABS: ALB/GLOB Ratio 1.1 RATIO (0.9-2.4); AST(SGOT) 21 U/L (15-37); Alanine Aminotransfer ALT/SGPT 23 U/L (16-61); Albumin, Serum 3.7 g/dL (3.2-5.0); Alkaline Phosphatase 111 U/L (45-117); Anion Gap 8 (5-15); BUN 26 mg/dL (7-18); Calcium,Total 9.9 mg/dL (8.5-10.1); Chloride 104 mmol/L (98-107); Creatinine, Serum 1.18 mg/dL (0.70-1.30); EST Glomerular Filtration Rate 63 mL/min (>60); Est Glom Filt Rate - Afr Amer 76 mL/min (>60); Globulin 3.4 g/dL (2.2-4.2); Glucose 70 mg/dL (74-106); Potassium 3.6 mmol/L (3.5-5.1); Protein, Total 7.1 g/dL (6.4-8.2); Sodium Level 139 mmol/L (136-145)
== END | disposition home or self-care (01) ==
LOC: BFHLAB 11:39
PROVIDERS: PCP Nurse Practitioner Family; Visit Provider Nurse Practitioner Family
DX: I10 Essential (primary) hypertension (principal)
CPT/HCPCS: 36415; 80053; 85025

== ENCOUNTER 2023-08-09 15:35 | Emergency (ER) | payer MEDICARE, SELFPAY ==
[2023-08-09 15:35] VITALS: BP 146/71; PULSE 60; RESP 16; TEMP 36.1; O2SAT 98; BMI 29.3
--- NOTE | 2023-08-09 16:42 | CT_ITS ---
STUDY: CT BRAIN WITHOUT CONTRAST REASON FOR EXAM: Male, 82 years old. Injury/Pain RADIATION DOSAGE (If Supplied By Facility): CTDIvol = ( 44.99 ) mGy, DLP = ( 846.76 ) mGycm TECHNIQUE: Transaxial CT imaging of the brain was performed without administration of intravenous contrast material. Individualized dose optimization techniques were used for this CT. COMPARISON: No relevant priors. FINDINGS: Normal soft tissue structures. Normal calvarium. There is mild cerebral atrophy with widening of the extra-axial spaces and ventricular dilatation. Normal white matter tracts of the cerebral hemispheres. Normal basal ganglia and thalami. Normal brainstem. Normal cerebellum. There is no intracranial hemorrhage. There are no findings of an acute ischemic infarction. Normal visualized paranasal sinuses. CT/Brain/Head without Contrast IMPRESSION: No acute intracranial hemorrhage or mass effect. Electronically Signed: Reynaldo Hancock MD (Brooks) at 18:12 EDT ,
--- NOTE | 2023-08-09 17:22 | ED.VIS.FALL ---
HPI HPI - Fall History of Present Illness Chief Complaint: Fall Informant: patient Narrative Narrative: Patient is an 82-year-old male with history of degenerative disc disease and status post L3/4 and L4/5 foraminectomy with left L3-S1 fusion and allograft performed on 06/24/[address] Goldberg at [facility]. Today patient was walking on the porch around noon when he slipped on ice and fell backwards. His daughter is at the bedside who actually had the fall on the security camera for the house and patient had both feet distal about from underneath him and he fell backwards. He did hit his head. No loss of conscious. Is having some mild discomfort but took his regular Tylenol and tramadol prior to arrival. Family requested that he come in to be evaluated make sure there is no abnormalities of his hardware since he had his recent surgery. Patient denies any other complaints at this time. Denies any new saddle anesthesia, urinary symptoms or new weakness of his legs. Notes he had some chronic weakness of his left leg which is improving. [facility] Medical History HTN (hypertension) Home Medications Allopurinol 100 mg PO BID 06/29/18 [History Last Taken Unknown] Androgel 1.62 % topical BID 06/29/18 [History Last Taken Unknown] Folic Acid 1 mg PO DAILY 06/29/18 [History Last Taken Unknown] Gabapentin 300 mg PO BID 06/29/18 [History Last Taken Unknown] [place] 3 Fish Oil Softgel 360 mg PO BID 06/29/18 [History Last Taken Unknown] One Daily For Men Tablet 1 tab PO DAILY 06/29/18 [History Last Taken Unknown] Tamsulosin HCl 0.4 mg PO DAILY 06/29/18 [History Last Taken Unknown] Tramadol 50 mg PO PRN PRN Pain 06/29/18 [History Last Taken Unknown] Valsartan-Hctz 320-25 mg Tab 320 mg PO DAILY 06/29/18 [History Last Taken Unknown] Vitamin D3 5,000 iu PO PRN PRN Supplement [employer] 06/29/18 [History Last Taken Unknown] traZODone 50 mg PO DAILY 06/29/18 [History Last Taken Unknown] potassium chloride 10 mEq capsule,extended release 10 meq PO DAILY 10 days #10 caps 02/08/23 [Rx Last Taken Unknown] Allergy/AdvReac Type Severity Reaction Status Date / Time peanut Allergy Hives Verified 08/09/23 15:41 Sulfa (Sulfonamide Allergy Hives Verified 08/09/23 15:41 Antibiotics) Social History Smoking Status: Never smoker ROS ROS ED Constitutional Constitutional ED: Denies chills or fever(s) Eyes Eyes: Denies change in vision Cardiovascular Cardiovascular: Denies chest pain Respiratory/Chest Respiratory/Chest: Denies cough Gastrointestinal Gastrointestinal: Denies abdominal pain, nausea or vomiting Genitourinary Genitourinary ED: Denies dysuria or urinary frequency Musculoskeletal Musculoskeletal: Reports back pain; Denies myalgias or neck pain Integumentary Denies rash Neurologic Neurologic: Denies headache(s) Hematologic/Lymphatic Hematologic/Lymphatic: Denies easy bleeding or easy bruising EXAM Physical Exam Const Vital Signs: 08/09/23 15:35 08/09/23 16:08 Temperature 96.9 F L Temperature Source Temporal Pulse Rate 60 Respiratory Rate 16 Respiratory Effort Normal Non-Labored Respiratory Depth Normal Respiratory Pattern Normal Blood Pressure 146/71 H Blood Pressure Mean 96 Pulse Ox 98 Oxygen Delivery Method Room Air Room Air Positive well nourished and well developed General Appearance ED: well developed and NAD HEENT Reports normocephalic, TM's clear and TM's normal bilaterally atraumatic; Negative for trauma Tympanic Membrane ED: Yes TM's clear Eyes PERRL and EOMs intact bilaterally Neck full ROM and supple General: Negative for tenderness Chest Wall inspection of chest normal and palpation of chest normal Resp normal respiratory effort and clear to auscultation bilaterally Cardio regular rate and regular rhythm GI non-tender and non-distended Back/Spine Back/Spine Narrative: No midline tenderness. Healing surgical incision of the lumbar spine. No infectious symptoms. No sacral tenderness to palpation. Normal range of motion. Neuro oriented x3, moves all extremities, no focal motor deficits and no sensory deficits noted Neuro Narrative: 5/5 strength with dorsal and plantarflexion of the legs. [place] Coma Scale: document GCS findings Spontaneous Obeys Commands Oriented 15 Sensorium / Orientation: alert Psych mental status grossly normal and thought process normal Skin Lesions: no lesions Rashes: no rashes Trauma: Negative for abrasion MDM MDM MDM Narrative Medical decision making narrative: Patient is evaluated for evaluation after mechanical fall. He slipped and landed on his back but had recent spinal surgery as well as also hit his head. Because of his age and he did fall pretty hard (I Watched on the home security video that his daughter brought in). Differential includes intracranial hemorrhage, skull fracture, lumbar spinal fracture or defect of his pedicle screws/recent surgery. He does not have any focal neurologic deficits and does not have midline tenderness. Do not think he requires a CT at this time. Lumbar x-ray viewed by myself as well as radiology does not show any acute compression fractures however there is no recent comparative. There are degenerative and operative changes. CT of the brain does not show any acute process. Patient will be given a disc of his x-ray as he follows up with [facility] with [facility]. Will be discharged home. Counseled that he likely will be more sore and have increased pain of the next few days just because of the fall but he can follow-up with his spine surgeon sooner (next 1 is not until September) if he is not recovering or return to the emergency room. Patient verbalized agreement understand this plan. Discharged home in stable condition Radiography Diagnostic Testing: Clinical Impression(s) from Imaging Studies Brain CT 08/09/23 16:42 IMPRESSION: No acute intracranial hemorrhage or mass effect. Electronically Signed: Reynaldo Hancock MD (Brooks) at 18:12 EDT , Lumbar Spine X-Ray 08/09/23 17:48 IMPRESSION: Degenerative and operative changes. No compression fracture. Comparison studies would be useful. Electronically Signed: Reynaldo Hancock MD (Brooks) at 18:14 EDT , Pelvis X-Ray 08/09/23 17:48 IMPRESSION: No fracture or malalignment. Electronically Signed: Reynaldo Hancock MD (Brooks) at 18:13 EDT , Discharge Plan Triage Chief Complaint: Fall ED Provider: Julia Pittman Dx/Rx/DC Orders Clinical Impression: Lumbar contusion, Closed head injury, Fall Instructions: ED Mechanical Fall Prescriptions: No Action Valsartan-Hctz 320-25 mg Tab 320 mg PO DAILY Allopurinol 100 mg PO BID Androgel 1.62 % topical BID Folic Acid 1 mg PO DAILY Gabapentin 300 mg PO BID One Daily For Men Tablet 1 tab PO DAILY Tamsulosin HCl 0.4 mg PO DAILY traZODone 50 mg PO DAILY [place] 3 Fish Oil Softgel 360 mg PO BID Tramadol 50 mg PO PRN PRN (Reason: Pain) Vitamin D3 5,000 iu PO PRN PRN (Reason: Supplement [employer]) potassium chloride 10 mEq capsule, extended release 10 meq PO DAILY 10 Days Qty: 10 0RF Primary Care Provider: Shirley Wood Referrals: Shirley Wood, [employer] [employer] [facility] [Primary Care Provider] - Disposition Disposition: Home, Self Care
--- NOTE | 2023-08-09 17:48 | RAD_ITS ---
STUDY: X-RAY - LUMBAR SPINE REASON FOR EXAM: Male, 82 years old. Injury/Pain, fall from porch, history of prior surgery TECHNIQUE: 3 view(s) of the lumbar spine were obtained. COMPARISON: None FINDINGS: Normal lumbar lordosis. There is a dextroscoliosis of the lumbar spine. There is a normal alignment of the vertebrae. There is multilevel endplate spondylosis of the lumbar vertebrae. L3-S1 posterior fusion hardware with laminectomies. Loss of disc height with vacuum disc phenomenon and discogenic sclerosis at L2-L3. Periapical lucencies involve the pedicle screws of L3. The soft tissue structures are unremarkable. RAD/Lumbar Spine 2 or 3 Views IMPRESSION: Degenerative and operative changes. No compression fracture. Comparison studies would be useful. Electronically Signed: Reynaldo Hancock MD (Brooks) at 18:14 EDT ,
--- NOTE | 2023-08-09 17:48 | RAD_ITS ---
STUDY: X-RAY - PELVIS REASON FOR EXAM: Male, 82 years old. Injury/Pain TECHNIQUE: One view of the pelvis was obtained. COMPARISON: None. FINDINGS: There is a non-specific bowel gas pattern. Normal visualized soft tissue structures. Fusion hardware laminectomies of the lumbosacral spine. Surgical celeste overlie the left hemipelvis. Normal bilateral iliac wings, sacroiliac joints and visualized sacrum. Normal visualized bilateral superior and inferior pubic rami. Normal pubic symphysis. Normal ischial tuberosities. There are osteoarthritic changes of the right femoral head with marginal osteophyte formation. There is osteoarthritic spur formation of the right acetabular rim. There is mild articular joint space narrowing of the right hip. There are osteoarthritic changes of the left femoral head with marginal osteophyte formation. There is osteoarthritic spur formation of the left acetabular rim. There is mild articular joint space narrowing of the left hip. RAD/Pelvis 1 or 2 Views IMPRESSION: No fracture or malalignment. Electronically Signed: Reynaldo Hancock MD (Brooks) at 18:13 EDT Reading Location ID and State: [facility] / [place] , Service support ,
[2023-08-09 18:00] VITALS: BP 125/82
[2023-08-09 18:51] VITALS: BP 130/72; PULSE 79; RESP 14; TEMP 36.6; O2SAT 99
== END 2023-08-09 18:56 | disposition home or self-care (01) ==
PROVIDERS: Emergency Provider Emergency Medicine; PCP Nurse Practitioner Family; Visit Provider Emergency Medicine
DX: S09.90XA Unspecified injury of head, initial encounter (principal); S30.0XXA Contusion of lower back and pelvis, initial encounter; W00.0XXA Fall on same level due to ice and snow, initial encounter; I10 Essential (primary) hypertension; Z79.899 Other long term (current) drug therapy
CPT/HCPCS: 70450; 72100; 72170; 99282

== ENCOUNTER → 2023-11-10 | Outpatient (CLI) | payer MEDICARE, SELFPAY ==
[2023-11-10 18:05] LABS: Absolute Lymphocyte Count 1.88 X10^3/uL (0.83-4.51); Absolute Neutrophil Count 3.4 X10^3/uL (2.0-7.7); Basophil# 0.03 X10^3/uL; Basophil% 0.5 % (0-1); Eosinophils% 3.4 % (0-5); Hematocrit 38.4 % (40-54); Hemoglobin 12.4 g/dL (13.0-16.5); Lymphocyte # 1.88 X10^3/ul (0.83-4.51); Lymphocyte % 31.8 % (19-41); Mean Corp Hgb Conc 32.3 g/dL (32-36); Mean Corpuscular Hgb 31.2 pg (27.0-32.0); Mean Corpuscular Volume 96.5 fL (80-94); Mean Platelet Vol. 11.2 fl (6.2-12.0); Monocyte# 0.39 X10^3/uL; Monocyte% 6.6 % (0-10); NRBC Flagged by Analyzer 0 % (0-5); Neutrophil # 3.38 X10^3/uL (2.7-7.7); Platelet Count 152 K/mm3 (150-450); RBC Distribution Width CV 14.7 % (11.6-14.6); RBC Distribution Width SD 51.5 fl (35.1-43.9); Red Blood Count 3.98 M/mm3 (4.6-6.2); White Blood Count 5.9 K/mm3 (4.4-11.0)
[2023-11-10 18:29] LABS: ALB/GLOB Ratio 1.2 RATIO (0.9-2.4); AST(SGOT) 27 U/L (15-37); Alanine Aminotransfer ALT/SGPT 33 U/L (16-61); Alkaline Phosphatase 103 U/L (45-117); Anion Gap 7 (5-15); BUN 37 mg/dL (7-18); BUN/Creat Ratio 31.9 RATIO (10-20); Calcium,Total 9.9 mg/dL (8.5-10.1); Chloride 104 mmol/L (98-107); Cholesterol 172 mg/dL (200); Creatinine, Serum 1.16 mg/dL (0.70-1.30); EST Glomerular Filtration Rate 64 mL/min (>60); Est Glom Filt Rate - Afr Amer 78 mL/min (>60); Ferritin 327 ng/mL (26-388); Globulin 3.2 g/dL (2.2-4.2); Glucose 100 mg/dL (74-106); High Density Lipoprotein 42 mg/dL; Iron 97 ug/dL (65-175); PSA,Total - Annual Screen 0.37 ng/mL (0.00-4.00); Potassium 3.9 mmol/L (3.5-5.1); Protein, Total 7.2 g/dL (6.4-8.2); Sodium Level 138 mmol/L (136-145); T4 Free Direct 0.92 ng/dL (0.76-1.46); Thyroid Stim Hormone (TSH) 2.68 uIU/mL (0.358-3.74); Triglycerides 113 mg/dL; Very Low Density Lipoprotein 23 mg/dL (5-40)
[2023-11-10 18:31] LABS: Vitamin B12 722 pg/mL (211-911); Vitamin D,25 Hydroxy 41.3 ng/mL
== END | disposition home or self-care (01) ==
LOC: BFHLAB 15:43
PROVIDERS: PCP Nurse Practitioner Family; Referring Provider Nurse Practitioner Family; Visit Provider Nurse Practitioner Family
DX: D64.9 Anemia, unspecified (principal); Z12.5 Encounter for screening for malignant neoplasm of prostate; E53.8 Deficiency of other specified B group vitamins; E55.9 Vitamin D deficiency, unspecified; E78.5 Hyperlipidemia, unspecified; I10 Essential (primary) hypertension; E03.9 Hypothyroidism, unspecified
CPT/HCPCS: 36415; 80053; 80061; 82306; 82607; 82728; 83540; 84153; 84439; 84443; 85025; G0103

== ENCOUNTER → 2024-09-06 | Outpatient (CLI) | payer MEDICARE, OTHER, SELFPAY ==
[2024-09-06 18:22] LABS: Absolute Lymphocyte Count 1.78 X10^3/uL (0.83-4.51); Absolute Neutrophil Count 3.9 X10^3/uL (2.0-7.7); Basophil# 0.04 X10^3/uL; Basophil% 0.6 % (0-1); Eosinophil# 0.18 X10^3/uL; Eosinophils% 2.8 % (0-5); Hematocrit 36.6 % (40-54); Hemoglobin 12.3 g/dL (13.0-16.5); Lymphocyte # 1.78 X10^3/ul (0.83-4.51); Lymphocyte % 27.4 % (19-41); Mean Corp Hgb Conc 33.6 g/dL (32-36); Mean Corpuscular Hgb 31.3 pg (27.0-32.0); Mean Corpuscular Volume 93.1 fL (80-94); Mean Platelet Vol. 11.2 fl (6.2-12.0); Monocyte# 0.55 X10^3/uL; Monocyte% 8.5 % (0-10); NRBC Flagged by Analyzer 0 % (0-5); Neutrophil % 60.1 % (47-70); Platelet Count 163 K/mm3 (150-450); RBC Distribution Width CV 13.9 % (11.6-14.6); RBC Distribution Width SD 47.2 fl (35.1-43.9); Red Blood Count 3.93 M/mm3 (4.6-6.2); White Blood Count 6.5 K/mm3 (4.4-11.0)
[2024-09-06 18:44] LABS: ALB/GLOB Ratio 1.7 RATIO (0.9-2.4); AST(SGOT) 28 U/L (<=37); Alanine Aminotransfer ALT/SGPT 18 U/L (<=46); Albumin, Serum 4.2 g/dL (3.4-4.8); Alkaline Phosphatase 115 U/L (40-129); Anion Gap 12 (5-15); BUN 34 mg/dL (4-19); BUN/Creat Ratio 25.1 RATIO (10-20); Calcium,Total 10.2 mg/dL (7.6-11.0); Carbon Dioxide 23.6 mmol/L (21.0-32.0); Chloride 102 mmol/L (98-108); Cholesterol 177 mg/dL (<=200); Creatinine, Serum 1.37 mg/dL (0.70-1.20); EST Glomerular Filtration Rate 52 (>60); Globulin 2.6 g/dL (2.2-4.2); Glucose 109 mg/dL (70-99); High Density Lipoprotein 34 mg/dL; Low Density Lipoprotein Calc. 100 mg/dL; Potassium 4.1 mmol/L (3.3-5.1); Protein, Total 6.8 g/dL (5.9-8.4); Sodium Level 137 mmol/L (133-145); Total Bilirubin 0.25 mg/dL (0.00-1.30); Triglycerides 216 mg/dL; Very Low Density Lipoprotein 43 mg/dL (5-40); cholesterol:hdl ratio screen 5.18
== END | disposition home or self-care (01) ==
PROVIDERS: PCP Nurse Practitioner Family; Visit Provider Nurse Practitioner Family
DX: I10 Essential (primary) hypertension (principal); E78.5 Hyperlipidemia, unspecified
CPT/HCPCS: 36415; 80053; 80061; 85025

== ENCOUNTER → 2024-10-29 | Outpatient (CLI) | payer MEDICARE, SELFPAY ==
[2024-10-29 09:26] LABS: Absolute Lymphocyte Count 1.72 X10^3/uL (0.83-4.51); Absolute Neutrophil Count 3.5 X10^3/uL (2.0-7.7); Basophil# 0.03 X10^3/uL; Basophil% 0.5 % (0-1); Eosinophil# 0.13 X10^3/uL; Eosinophils% 2.2 % (0-5); Lymphocyte # 1.72 X10^3/ul (0.83-4.51); Lymphocyte % 29.2 % (19-41); Mean Corp Hgb Conc 33.3 g/dL (32-36); Mean Corpuscular Hgb 31.6 pg (27.0-32.0); Mean Corpuscular Volume 94.7 fL (80-94); Monocyte% 8.5 % (0-10); NRBC Flagged by Analyzer 0 % (0-5); Neutrophil # 3.48 X10^3/uL (2.7-7.7); Neutrophil % 58.9 % (47-70); Platelet Count 147 K/mm3 (150-450); RBC Distribution Width CV 14.4 % (11.6-14.6); RBC Distribution Width SD 49.6 fl (35.1-43.9); White Blood Count 5.9 K/mm3 (4.4-11.0)
[2024-10-29 09:45] LABS: Ionized Calcium Order ORDER TUBE
[2024-10-29 09:55] LABS: LDH 210 U/L (87-241)
[2024-10-29 10:05] LABS: Ionized Calcium 1.28 mmol/L (1.09-1.30)
[2024-11-01 16:08] LABS: Free Kappa Light Chains 19.5 mg/L (3.3-19.4)
[2024-11-03 08:09] LABS: Beta-2-Microglobulin, S 3.6 mg/L (0.6-2.4)
== END | disposition home or self-care (01) ==
PROVIDERS: PCP Nurse Practitioner Family; Referring Provider Psychiatry & Neurology Neurology; Visit Provider Psychiatry & Neurology Neurology
DX: D89.2 Hypergammaglobulinemia, unspecified (principal)
CPT/HCPCS: 36415; 82232; 82330; 83615; 83883; 85025

== ENCOUNTER → 2024-11-01 | Outpatient (CLI) | payer MEDICARE, SELFPAY ==
--- OUTSIDE RECORDS SUMMARY | 2024-11-01 09:19 | XMS RPT_ITS | CCD ---
Author Organization [facility] Inform ion Partnership [facility] Care Team Providers Care Procurement Professional Name Role Phone Dom Landin MD Unavailable AVERELL DO~[phone], AVERELL SHARAD Admitting Unavailable AVERELL DO, SHARAD Primary Care Unavailable AVERELL DO~[phone], AVERELL SHARAD Attending Unavailable AVERELL DO, SHARAD Primary Care Unavailable AVERELL DO~[phone], AVERELL SHARAD Attending Unavailable AVERELL DO~[phone], AVERELL SHARAD Admitting Unavailable Averell, Sharad Attending Unavailable Averell, Sharad Referring Unavailable Israel, Shirley Primary Care Unavailable Averell, Sharad Attending Unavailable Averell, Sharad Referring Unavailable Israel, Shirley Primary Care Unavailable Averell, Sharad Attending Unavailable Averell, Sharad Referring Unavailable Israel, Shirley Primary Care Unavailable Israel, Shirley Attending Unavailable Israel, Shirley Referring Unavailable Israel, Shirley Primary Care Unavailable Israel, Shirley Attending Unavailable Israel, Shirley Primary Care Unavailable Allergies Allergy Classification Reported Allergen(s) Allergy Type Date of Onset Reaction(s) Facility (9 sources) Sulfonamides (Antibiotic); Translations: [Sulfa (Sulfonamide Antibiotics)] Allergy to substance 9 [facility] (1 source) House dust mite; Translations: [DUST MITES] allergy to substance 5 hay fever [facility] Work Phone: (1 source) peanut; Translations: [PEANUTS] food allergy 5 GI upset [facility] Work Phone: (1 source) Sulfacetamide Drug Allergy 4 [facility] Work Phone: (1 source) WOOL; Translations: [WOOL] allergy to substance 5 [facility] Work Phone: (1 source) PLANT POLLENS (HAY FEVER); Translations: [PLANT POLLENS (HAY FEVER)] allergy to substance 5 hay fever [facility] Work Phone: (4 sources) peanut allergenic extract Drug Allergy 3 [facility] (1 source) peanut allergenic extract Drug Allergy 4 [facility] Repository Medications Current Medications Medication Drug Class(es) Dates Sig (Normalized) Sig (Original) allopurinol 100 mg oral tablet (9 sources) Xanthine Oxidase Inhibitor Start: 03-03-2018 take 100 mg by mouth twice daily Allopurinol Active 100 MG PO TWICE A DAY June 29, 2018 1:00am folic acid 1 mg oral tablet (9 sources) Start: 03-03-2018 take 1 mg by mouth once daily Folic Acid Active 1 MG PO DAILY June 29, 2018 1:00am gabapentin 300 mg oral capsule (9 sources) Anti-epileptic Agent Start: 06-29-2018 take 300 mg by mouth twice daily Gabapentin Active 300 MG PO TWICE A DAY June 29, 2018 1:00am Start: 03-03-2018 GABAPENTIN 300 MG CAPS 1 capsule 3 times daily GABAPENTIN [id number] Nicki Galvin LPN [place] 3 Fish Oil Softgel (8 sources) Start: 06-29-2018 take 360 mg by mouth twice daily [place] 3 Fish Oil Softgel Active 360 MG PO TWICE A DAY June 29, 2018 4:14pm Start: 06-29-2018 take 360 mg by mouth twice tulio ly [place] 3 Fish Oil Softgel Active 360 MG PO TWICE A DAY June 29, 2018 12:00am Start: 06-29-2018 take 360 mg by mouth twice tulio ly [place] 3 Fish Oil Softgel Active 360 MG PO TWICE A DAY June 29, 2018 1:00am One Daily For Men Tablet (8 sources) Start: 06-29-2018 One Daily For Men Tablet Active June 29, 2018 4:09pm Start: 06-29-2018 take 1 tablet by mouth once da tejas One Daily For Men Tablet Active 1 TABLET PO DAILY June 29, 2018 1:00am Start: 06-29-2018 take 1 tablet by mouth once da tejas One Daily For Men Tablet Active 1 TABLET PO DAILY June 29, 2018 12:00am Start: 06-29-2018 One Daily For Men Tablet Active June 29, 2018 1:00am potassium chloride 10 meq extended release oral capsule (4 sources) Start: 02-08-2023 take 10 mEq by mouth once daily Potassium Chloride Active 10 MEQ PO DAILY 02 25February 08, 2023 12:00am tamsulosin hydrochloride 0.4 mg oral capsule (9 sources) alpha-Adrenergic Kaci Start: 04-21-2014 take 0.4 mg by mouth once daily Tamsulosin HCl Active 0.4 MG PO DAILY June 29, 2018 1:00am Testosterone (9 sources) Androgen Start: 06-29-2018 Androgel Activ e 1.62 % TOPICAL TWICE A DAY June 29, 2018 4:09pm Start: 06-29-2018 Androgel Activ e 1.62 % TOPICAL TWICE A DAY June 29, 2018 12:00am Start: 06-29-2018 Androgel Activ e 1.62 % TOPICAL TWICE A DAY June 29, 2018 1:00am Start: 03-03-2018 ANDROGEL PUMP GEL 2 pumps daily TESTOSTERONE GEL [id number] Nicki Galvin LPN traMADol hydrochloride 50 mg oral tablet (8 sources) Opioid Agonist Start: 06-29-2018 Tramadol Activ e 50 MG PO NEEDED June 29, 2018 1:00am traZODone hydrochloride 50 mg oral tablet (9 sources) Serotonin Reuptake Inhibitor Start: 06-29-2018 take 50 mg by mouth once daily traZODone Active 50 MG PO DAILY June 29, 2018 1:00am Valsartan-Hctz 320-25 mg Tab (8 sources) Start: 06-29-2018 take 1 tablet by mouth once daily Valsartan-Hctz 320-25 mg Tab Active 320 MG PO DAILY June 29, 2018 4:07pm Start: 06-29-2018 take 1 tablet by roberth once daily Valsartan-Hctz 320-25 mg Tab Active 320 MG PO DAILY June 29, 2018 12:00am Start: 06-29-2018 take 1 tablet by roberth th once daily Valsartan-Hctz 320-25 mg Tab Active 320 MG PO DAILY June 29, 2018 1:00am Vitamin D3 (8 sources) Start: 06-29-2018 Vitamin D3 Act dwaine 5000 IU PO NEEDED June 29, 2018 4:14pm Start: 06-29-2018 Vitamin D3 Act dwaine 5000 IU PO NEEDED June 29, 2018 12:00am Start: 06-29-2018 Vitamin D3 Act dwaine 5000 IU PO NEEDED June 29, 2018 1:00am Completed/Discontinued Medications Medication Drug Class(es) Dates Sig (Normalized) Sig (Original) acetaminophen 500 mg / diphenhydrAMINE hydrochloride 25 mg oral tablet (1 source) Histamine-1 Receptor Antagonist Start: 03-03-[address] TABS 1 tablet nightly DIPHENHYDRAMINE-APA P (SLEEP) TABS [id number] Nicki Corsaro DATA CENTER MANAGER acetaminophen 325 mg / oxyCODONE hydrochloride 5 mg oral tablet (1 source) Opioid Agonist Start: 10-06-2020 OXYCODONE-ACETAMINO PHEN 5-325 MG TABS 1/2 tablet twice daily OXYCODONE-ACETAMINO PHEN [id number] Marina Dorado PA-C BETAMETASONE #SP .05% (1 source) Start: 11-13-2018 BETAMETASONE #SP .05% as needed BETAMETASONE #SP .05% Andrae Dockery MD BUPIV-KAYLA 3/6% SSADY CREAM (1 source) Start: 11-13-2018 BUPIV-KAYLA 3/6% SSADY CREAM BUPIV-KAYLA 3/6% SSADY CREAM Andrae Dockery MD cholecalciferol 0.125 mg oral tablet (1 source) Vitamin D Start: 03-03-2018 VITAMIN D3 125 MCG (5000 UT) TABS 1 tablet daily CHOLECALCIFEROL [id number] Nicki Corsaro DATA CENTER MANAGER diphenhydrAMINE (1 source) Histamine-1 Receptor Antagonist Start: 03-03-2018 DIPHENHYDRAMINE HCL LIQD apply both legs nightly DIPHENHYDRAMINE HCL LIQD [id number] Nicki Corsaro DATA CENTER MANAGER hydroCHLOROthiazide 25 mg / valsartan 320 mg oral tablet (1 source) Thiazide Diuretic, Angiotensin 2 Receptor Kaci Start: 03-03-2018 VALSARTAN-HYDROCHLO ROTHIAZIDE 320-25 MG TABS 1 tablet daily VALSARTAN-HYDROCHLO ROTHIAZIDE [id number] Nicki Corsaro DATA CENTER MANAGER JUICE PLUS FIBRE ORAL (NUTRITIONAL SUPPLEMENTS) (1 source) Start: 04-21-2014 JUICE PLUS FIBRE ORAL (NUTRITIONAL SUPPLEMENTS) twice daily Nicki Corsaro DATA CENTER MANAGER MULTIPLE VITAMINS-IRON (1 source) Start: 03-03-2018 STRESS B COMPLEX/IRON TABS 1 tablet daily MULTIPLE VITAMINS-IRON [id number] Incki Corsaro DATA CENTER MANAGER MULTIPLE VITAMINS-MINERALS (1 source) Start: 04-21-2014 ONE-A-DAY MENS 50+ ADVANTAGE TABS 1 tablet once daily MULTIPLE VITAMINS-MINERALS [id number] Kimi Quinteros RN OMEGA-3 FATTY ACIDS (1 source) Start: 03-03-2018 FISH OIL 1200 MG CAPS 1 capsule daily OMEGA-3 FATTY ACIDS [id number] Nicki Corsaro DATA CENTER MANAGER PLEXUS (1 source) Start: 03-03-2018 PLEXUS 1 tablet daily PLEXUS Nicki Corsaro DATA CENTER MANAGER PREVAGEN (1 source) Start: 11-13-2018 PREVAGEN 1 tablet daily PREVAGEN Andrae Dockery MD Problems Active Problems Problem Classification Problem Date Documented Date Episodic/Chronic Acquired foot deformities (1 source) Hammer toe; Translations: [Other hammer toe(s) (acquired), left foot] Onset: 12-14-2020 12-14-2020 Chronic Acquired foot deformities (1 source) Hammer toe; Translations: [Other hammer toe(s) (acquired), right foot] Onset: 12-14-2020 12-14-2020 Chronic E Codes: Fall (1 source) Fall; Translations: [Unspecified fall, initial encounter] 08-09-2023 Episodic Essential hypertension (9 sources) Hypertensive disorder; Translations: [Essential (primary) hypertension] Onset: 09-13-2024 07-06-2018 Chronic Fluid and electrolyte disorders (8 sources) Dehydration; Translations: [Dehydration] 02-16-2023 Episodic Gout and other crystal arthropathies (8 sources) Gout; Translations: [Gout, unspecified] 07-06-2018 Chronic Hyperplasia of prostate (8 sources) Benign prostatic hyperplasia; Translations: [Benign prostatic hyperplasia without lower urinary tract symptoms] 07-06-2018 Chronic Immunity disorders (1 source) Hypergammaglobulinemia, unspecified; Translations: [Hypergammaglobulinemia , unspecified] Onset: 10-29-2024 Chronic Osteoarthritis (8 sources) Arthritis; Translations: [Unspecified osteoarthritis, unspecified site] 07-06-2018 Chronic Other connective tissue disease (1 source) Presence of right artificial knee joint; Translations: [Knee joint replacement] Onset: 03-05-2018 03-05-2018 Chronic Other connective tissue disease (8 sources) Pain in lower limb; Translations: [Pain in leg, unspecified] 06-29-2018 Episodic Other connective tissue disease (4 sources) Lipodermatosclerosis; Translations: [Panniculitis, unspecified] 06-29-2018 Episodic Other diseases of veins and lymphatics (8 sources) Chronic peripheral venous hypertension; Translations: [Chronic venous hypertension (idiopathic) with inflammation of unspecified lower extremity] 06-29-2018 Chronic Other diseases of veins and lymphatics (8 sources) Peripheral venous insufficiency; Translations: [Venous insufficiency (chronic) (peripheral)] 06-29-2018 Episodic Other diseases of veins and lymphatics (8 sources) Stasis dermatitis; Translations: [Venous insufficiency (chronic) (peripheral)] 06-29-2018 Episodic Other injuries and conditions due to external causes (1 source) Closed injury of head; Translations: [Unspecified injury of head, initial encounter] 08-09-2023 Episodic Other nervous system disorders (1 source) Neuropathy; Translations: [Polyneuropathy, unspecified] Onset: 12-14-2020 12-14-2020 Chronic Other nervous system disorders (2 sources) Polyneuropathy, unspecified; Translations: [POLYNEUROPATHY UNSPECIFIED] Onset: 10-19-2024 Chronic Other non-epithelial cancer of skin (8 sources) History of malignant neoplasm of skin; Translations: [Personal history of other malignant neoplasm of skin] 07-06-2018 Episodic Other skin disorders (8 sources) Hyperpigmentation of skin; Translations: [Disorder of pigmentation, unspecified] 06-29-2018 Episodic Spondylosis; intervertebral disc disorders; other back problems (2 sources) Degeneration of lumbar intervertebral disc; Translations: [Other intervertebral disc degeneration, lumbar region] Onset: 03-17-2015 01-10-2020 Chronic Superficial injury; contusion (1 source) Contusion of lower back; Translations: [Contusion of lower back and pelvis, initial encounter] 08-09-2023 Episodic Varicose veins of lower extremity (20 sources) Venous varices; Translations: [Varicose veins of unspecified lower extremity with inflammation] 06-29-2018 Episodic Past or Other Problems Problem Classification Problem Date Documented Date Episodic/Chronic Acquired foot deformities (1 source) Deformity of foot; Translations: [Other acquired deformities of unspecified foot] Onset: 12-14-2020 12-14-2020 Episodic Deficiency and other anemia (1 source) Anemia, unspecified; Translations: [Anemia, unspecified] Onset: 11-27-2023 Episodic Malaise and fatigue (2 sources) Weakness; Translations: [WEAKNESS] Onset: 06-25-2024 Episodic Other acquired deformities (1 source) Spondylolisthesis; [...] Results Test Name Value Interpretation Reference Range Facility CBC W/Diff, Automatedon 10-17 Absolute Lymph 1.72 X10 3/uL Normal 0.83-4.51 [facility] Comment on above: Performed By: #### L 501.9520, L500.4100, L506.0400, L503.6550, L503.0105, L100.0100, L506.1000, L500.4050, L503.6150, L501.9910 #### [facility] [address] [place], [address] Absolute Neut 3.5 X10 3/uL Normal 2.0-7.7 [facility] Comment on above: Performed By: #### L [id number], L500.4100, L506.0400, L503.6550, L503.0105, L100.0100, L506.1000, L500.4050, L503.6150, L501.9910 #### [facility] [address] [place], [address] Basophils/100 WBC (Bld) 0.5 % Normal 0-1 [facility] Comment on above: Performed By: #### L [id number], L500.4100, L506.0400, L503.6550, L503.0105, L100.0100, L506.1000, L500.4050, L503.6150, L501.9910 #### [facility] [address] [place], [address] Eosinophils/100 WBC (Bld) 2.2 % Normal 0-5 [facility] Comment on above: Performed By: #### L 501.9520, L500.4100, L506.0400, L503.6550, L503.0105, L100.0100, L506.1000, L500.4050, L503.6150, L501.9910 #### [facility] [address] [place], [place], [id number] Erythrocyte distribution width (RBC) [Ratio] 14.4 % Normal 11.6-14.6 [facility] Comment on above: Performed By: #### L 501.9520, L500.4100, L506.0400, L503.6550, L503.0105, L100.0100, L506.1000, L500.4050, L503.6150, L501.9910 #### [facility] [address] [place], [place], [id number] Hematocrit (Bld) [Volume fraction] 36.0 % Low 40-54 [facility] Comment on above: Performed By: #### L 501.9520, L500.4100, L506.0400, L503.6550, L503.0105, L100.0100, L506.1000, L500.4050, L503.6150, L501.9910 #### [facility] [address] [place], [place], [id number] Hemoglobin (Bld) [Mass/Vol] 12.0 g/dL Low 13.0-16.5 [facility] Comment on above: Performed By: #### L 501.9520, L500.4100, L506.0400, L503.6550, L503.0105, L100.0100, L506.1000, L500.4050, L503.6150, L501.9910 #### [facility] [address] [place], [place], [id number] IG% 0.700 Normal 0.0-0.9 [facility] Comment on above: Result Comment: IG% - Immature Granulocytes (promyelocytes, myelocytes and metamyelocytes) > 1% indicates that a LEFT SHIFT is Present. Performed By: #### L 501.9520, L500.4100, L506.0400, L503.6550, L503.0105, L100.0100, L506.1000, L500.4050, L503.6150, L501.9910 #### [facility] [address] [place], [address] Lymphocytes/100 WBC (Bld) 29.2 % Normal 19-41 [facility] Comment on above: Performed By: #### L 501.9520, L500.4100, L506.0400, L503.6550, L503.0105, L100.0100, L506.1000, L500.4050, L503.6150, L501.9910 #### [facility] [address] [place], [address] MCH (RBC) [Entitic mass] 31.6 pg Normal 27.0-32.0 [facility] Comment on above: Performed By: #### L 501.9520, L500.4100, L506.0400, L503.6550, L503.0105, L100.0100, L506.1000, L500.4050, L503.6150, L501.9910 #### [facility] [address] [place], [address] MCHC (RBC) [Mass/Vol] 33.3 g/dL Normal 32-36 [facility] Comment on above: Performed By: #### L 501.9520, L500.4100, L506.0400, L503.6550, L503.0105, L100.0100, L506.1000, L500.4050, L503.6150, L501.9910 #### [facility] [address] [place], [address] MCV (RBC) [Entitic vol] 94.7 fL High 80-94 [facility] Comment on above: Performed By: #### L 501.9520, L500.4100, L506.0400, L503.6550, L503.0105, L100.0100, L506.1000, L500.4050, L503.6150, L501.9910 #### [facility] [address] [place], [address] Monocytes/100 WBC (Bld) 8.5 % Normal 0-10 [facility] Comment on above: Performed By: #### L 501.9520, L500.4100, L506.0400, L503.6550, L503.0105, L100.0100, L506.1000, L500.4050, L503.6150, L501.9910 #### [facility] [address] [place], [address] Neutrophils/100 WBC (Bld) 58.9 % Normal 47-70 [facility] Comment on above: Performed By: #### L 501.9520, L500.4100, L506.0400, L503.6550, L503.0105, L100.0100, L506.1000, L500.4050, L503.6150, L501.9910 #### [facility] [address] [place], [address] Nucleated RBC (Bld) [#/Vol] 0 10*3/uL Normal 0-5 [facility] Comment on above: Performed By: #### L 501.9520, L500.4100, L506.0400, L503.6550, L503.0105, L100.0100, L506.1000, L500.4050, L503.6150, L501.9910 #### [facility] [address] [place], [address] Platelet mean volume (Bld) [Entitic vol] 11.0 fL Normal 6.2-12.0 [facility] Comment on above: Performed By: #### L 501.9520, L500.4100, L506.0400, L503.6550, L503.0105, L100.0100, L506.1000, L500.4050, L503.6150, L501.9910 #### [facility] [address] [place], [address] Platelets (Bld) [#/Vol] 147 10*3/uL Low 150-450 [facility] Comment on above: Performed By: #### L 501.9520, L500.4100, L506.0400, L503.6550, L503.0105, L100.0100, L506.1000, L500.4050, L503.6150, L501.9910 #### [facility] [address] [place], [address] RBC (Bld) [#/Vol] 3.80 10*6/uL Low 4.6-6.2 [facility] Comment on above: Performed By: #### L 501.9520, L500.4100, L506.0400, L503.6550, L503.0105, L100.0100, L506.1000, L500.4050, L503.6150, L501.9910 #### [facility] [address] [place], [address] RDW SD 49.6 fl High 35.1-43.9 [facility] Comment on above: Performed By: #### L 501.9520, L500.4100, L506.0400, L503.6550, L503.0105, L100.0100, L506.1000, L500.4050, L503.6150, L501.9910 #### [facility] [address] [place], [address] WBC (Bld) [#/Vol] 5.9 10*3/uL Normal 4.4-11.0 [facility] Comment on above: Performed By: #### L 501.9520, L500.4100, L506.0400, L503.6550, L503.0105, L100.0100, L506.1000, L500.4050, L503.6150, L501.9910 #### [facility] [address] [place], [address] L501.2276on 10-29-2024 Ionized Calcium 1.28 mmol/L Normal 1.09-1.30 [facility] Comment on above: Performed By: #### L 501.9520, L500.4100, L506.0400, L503.6550, L503.0105, L100.0100, L506.1000, L500.4050, L503.6150, L501.9910 #### [facility] [address] [place], [address] LDHon 10-29-2024 LDH 210 U/L Normal 87-241 [facility] Comment on above: Order Comment: CAL1 Performed By: #### L 501.9520, L500.4100, L506.0400, L503.6550, L503.0105, L100.0100, L506.1000, L500.4050, L503.6150, L501.9910 #### [facility] [address] [place], [place], [address] DEWAYNE -reflex to Titer & Patte rnon 10-21-2024 Antinuclear Antibodies, IFA Negative Normal [facility] Comment on above: Order Comment: Perfo rmed at: [address] [id number] District Scout Executive: Hans Vazquez PhD, Phone: [phone] Result Comment: Nega tive <1:80 Borderline 1:80 Positive >1:80 ICAP nomenclature: AC-0 For more information about Hep-2 cell patterns use ANApatterns.org, the official website for the International Consensus on Antinuclear Antibody (DEWAYNE) Patterns (ICAP). Performed By: #### A NA #### [facility] RESULTS Immunofixation Serum (Incl I gG,IgM, IgA)on 10-21-2024 IgA, Quant, Serum 127 mg/dL Normal 61-437 [facility] Comment on above: Order Comment: Perfo rmed at: [place] [address] [employer] Executive: Hans Vazquez PhD, Phone: [phone] Performed By: #### I FEBLD #### [facility] RESULTS IgG, Quant, Serum 832 mg/dL Normal 603-1613 [facility] Comment on above: Order Comment: Perfo rmed at: [place] [address] District Scout Executive: Hans Vazquez PhD, Phone: [phone] Performed By: #### I FEBLD #### [facility] RESULTS IgM, Quant, Serum 108 mg/dL Normal 15-143 [facility] Comment on above: Order Comment: Perfo rmed at: [place] [address] District Scout Executive: Hasn Vazquez PhD, Phone: [phone] Performed By: #### I FEBLD #### [facility] RESULTS Immunofixation Result, Serum Comment Abnormal [facility] Comment on above: Order Comment: Perfo rmed at: [place] [address] District Scout Executive: Hans Vazquez PhD, Phone: [phone] Result Comment: Immu nofixation shows IgG monoclonal protein with lambda light chain specificity. [place] appears asymmetrical. Performed By: #### I FEBLD #### [facility] RESULTS Prot Electrophoresis Serumon 10-20-2024 Albumin [Mass/Vol] 3.9 g/dL Normal 2.9-4.4 [facility] Comment on above: Order Comment: Perfo rmed at: [facility] [place] [address] [employer] Executive: Hans Vazquez PhD, Phone: [phone] Performed By: #### S PEP #### [facility] RESULTS Albumin/Globulin [Mass ratio] 1.3 {ratio} Normal 0.7-1.7 [facility] Comment on above: Order Comment: Perfo rmed at: [facility] [place] [address] [employer] Executive: Hans Vazquez PhD, Phone: [phone] Performed By: #### S PEP #### [facility] RESULTS Zvyuh-8-Uywlkadg 0.2 g/dL Normal 0.0-0.4 [facility] Comment on above: Order Comment: Perfo rmed at: [place] [address] District Scout Executive: Hans Vazquez PhD, Phone: [phone] Performed By: #### S PEP #### [facility] RESULTS Adgzj-2-Dlowqbzi 0.9 g/dL Normal 0.4-1.0 [facility] Comment on above: Order Comment: Perfo rmed at: [address] [id number] [employer] Executive: Hans Vazquez PhD, Phone: [phone] Performed By: #### S PEP #### [facility] RESULTS Beta Globulin 1.0 g/dL Normal 0.7-1.3 [facility] Comment on above: Order Comment: Perfo rmed at: [address] [id number] District [employer] Executive: Hans Vazquez PhD, Phone: [phone] Performed By: #### S PEP #### [facility] RESULTS Gamma Globulin 0.8 g/dL Normal 0.4-1.8 [facility] Comment on above: Order Comment: Perfo rmed at: [address] [id number] District [employer] Executive: Hans Vazquez PhD, Phone: [phone] Performed By: #### S PEP #### [facility] RESULTS Globulin (S) [Mass/Vol] 2.9 g/dL Normal 2.2-3.9 [facility] Comment on above: Order Comment: Perfo rmed at: [address] [id number] District [employer] Executive: Hans Vazquez PhD, Phone: [phone] Performed By: #### S PEP #### [facility] RESULTS M-Noah 0.2 g/dL High Not Observed [facility] Comment on above: Order Comment: Perfo rmed at: [facility] [id number] District [employer] Executive: Hans Vazquez PhD, Phone: [phone] Performed By: #### S PEP #### [facility] RESULTS PDF . [facility] Comment on above: Order Comment: Perfo rmed at: [place] [address] District Scout Executive: Hans Vazquez PhD, Phone: [phone] Performed By: #### S PEP #### [facility] RESULTS Please note: Comment [facility] Comment on above: Order Comment: Perfo rmed at: [facility] [place] [address] [employer] Executive: Hans Vazquez PhD, Phone: [phone] Result Comment: Prot ein electrophoresis scan will follow via computer, mail, or chart picker delivery. Performed By: #### S PEP #### [facility] RESULTS Protein [Mass/Vol] 6.8 g/dL Normal 6.0-8.5 [facility] Comment on above: Order Comment: [facility]fo rmed at: [facility] [place] [address] [employer] Executive: Hans Vazquez PhD, Phone: [phone] Performed By: #### S PEP #### [facility] RESULTS Sjogrens Abs SS-A/SS-Bon Sjogren's Anti-SS-A <0.2 Normal 0.0-0.9 [facility] Comment on above: Order Comment: Perfo rmed at: [facility] [place] [address] [employer] Executive: Hans Vazquez PhD, Phone: [phone] Performed By: #### S JOGRNS #### [facility] RESULTS Sjogren's Anti-SS-B <0.2 Normal 0.0-0.9 [facility] Comment on above: Order Comment: Perfo rmed at: [facility] [place] [address] [employer] Executive: Hans Vazquez PhD, Phone: [phone] Performed By: #### S HECTOR #### [facility] RESULTS Hemoglobin A1Con 10-18-2024 Comment HgbA1C levels may not be accurate in patients who have renal disease, received recent blood transfusions, are anemic or who have dyshemoglobinemia. [facility] Comment on above: Performed By: #### H GA1C #### [facility] [address] [place] [address] Glucose [Mass/Vol] 117 mg/dL Normal [facility] Comment on above: Performed By: #### H GA1C #### [facility] [address] [place] [address] HbA1c (Bld) [Mass fraction] 5.7 % High <=5.6 [facility] Comment on above: Performed By: #### H GA1C #### [place] [address] Please Note: Prediabetes: 5.7 - 6.4 Diabetes: >6.4 Glycemic control for adults with diabetes: <7.0 [facility] Comment on above: Performed By: #### H GA1C #### [place] [id number] Rheumatoid Factor (Quant)on 10-18-2024 Rheumatoid Factor <12 Normal <=13 [facility] Comment on above: Performed By: #### R F #### [place] [id number] TSH with FT4 Reflexon 2024 Biotin Interference Concentrations of Biotin in excess of 100ng/ml in patient samples can potentially result in interference of TSH. [facility] Comment on above: Performed By: #### T SHFT4R, B12 #### [place] [address] TSH 3.57 uIU/mL Normal 0.27-4.20 [facility] Comment on above: Performed By: #### T SHFT4R, B12 #### [facility] [address] [place], [place] [address] TSH comment <0.001% of patients express a rare TSH variant which yields falsely low values in this assay. Interpret low TSH values along with T4 and T3 levels and the clinical history. [facility] Comment on above: Performed By: #### T SHFT4R, B12 #### [facility] [address] [place] [address] Vitamin B12on 10-18-2024 Biotin Interference Samples should not be taken from patients receiving therapy with high biotin doses (i.e. >5mg/day) until at least 8 hours following the last biotin administration. [facility] Comment on above: Performed By: #### T SHFT4R, B12 #### [facility] [address] [place] [address] Cobalamin (Vitamin B12) [Mass/Vol] 1164 pg/mL Normal 232-1245 [facility] Comment on above: Performed By: #### T SHFT4R, B12 #### [address] [address] CBC W/Diff, Automatedon 08-18 Absolute Lymph 1.78 X10 3/uL Normal 0.83-4.51 [facility] Comment on above: Performed By: #### L 501.9520, L500.4100, L506.0400, L503.6550, L503.0105, L100.0100, L506.1000, L500.4050, L503.6150, L501.9910 #### [facility] [address] [place], [address] Absolute Neut 3.9 X10 3/uL Normal 2.0-7.7 [facility] Comment on above: Performed By: #### L 501.9520, L500.4100, L506.0400, L503.6550, L503.0105, L100.0100, L506.1000, L500.4050, L503.6150, L501.9910 #### [facility] [address] [place], [address] Basophils/100 WBC (Bld) 0.6 % Normal 0-1 [facility] Comment on above: Performed By: #### L 501.9520, L500.4100, L506.0400, L503.6550, L503.0105, L100.0100, L506.1000, L500.4050, L503.6150, L501.9910 #### [facility] [address] [place], [place], [phone] (677) Eosinophils/100 WBC (Bld) 2.8 % Normal 0-5 [facility] Comment on above: Performed By: #### L 501.9520, L500.4100, L506.0400, L503.6550, L503.0105, L100.0100, L506.1000, L500.4050, L503.6150, L501.9910 #### [facility] [address] [place], [address] (350) Erythrocyte distribution width (RBC) [Ratio] 13.9 % Normal 11.6-14.6 [facility] Comment on above: Performed By: #### L 501.9520, L500.4100, L506.0400, L503.6550, L503.0105, L100.0100, L506.1000, L500.4050, L503.6150, L501.9910 #### [facility] [address] [place], [place], [phone] (032) Hematocrit (Bld) [Volume fraction] 36.6 % Low 40-54 [facility] Comment on above: Performed By: #### L 501.9520, L500.4100, L506.0400, L503.6550, L503.0105, L100.0100, L506.1000, L500.4050, L503.6150, L501.9910 #### [facility] [address] [place], [place], [phone] (263) Hemoglobin (Bld) [Mass/Vol] 12.3 g/dL Low 13.0-16.5 [facility] Comment on above: Performed By: #### L 501.9520, L500.4100, L506.0400, L503.6550, L503.0105, L100.0100, L506.1000, L500.4050, L503.6150, L501.9910 #### [facility] [address] [place], [address] IG% 0.600 Normal 0.0-0.9 [facility] Comment on above: Result Comment: IG% - Immature Granulocytes (promyelocytes, myelocytes and metamyelocytes) > 1% indicates that a LEFT SHIFT is Present. Performed By: #### L 501.9520, L500.4100, L506.0400, L503.6550, L503.0105, L100.0100, L506.1000, L500.4050, L503.6150, L501.9910 #### [facility] [address] [place], [address] Lymphocytes/100 WBC (Bld) 27.4 % Normal 19-41 [facility] Comment on above: Performed By: #### L 501.9520, L500.4100, L506.0400, L503.6550, L503.0105, L100.0100, L506.1000, L500.4050, L503.6150, L501.9910 #### [facility] [address] [place], [address] MCH (RBC) [Entitic mass] 31.3 pg Normal 27.0-32.0 [facility] Comment on above: Performed By: #### L 501.9520, L500.4100, L506.0400, L503.6550, L503.0105, L100.0100, L506.1000, L500.4050, L503.6150, L501.9910 #### [facility] [address] [place], [address] MCHC (RBC) [Mass/Vol] 33.6 g/dL Normal 32-36 [facility] Comment on above: Performed By: #### L 501.9520, L500.4100, L506.0400, L503.6550, L503.0105, L100.0100, L506.1000, L500.4050, L503.6150, L501.9910 #### [facility] [address] [place], [address] MCV (RBC) [Entitic vol] 93.1 fL Normal 80-94 [facility] Comment on above: Performed By: #### L 501.9520, L500.4100, L506.0400, L503.6550, L503.0105, L100.0100, L506.1000, L500.4050, L503.6150, L501.9910 #### [facility] [address] [place], [address] Monocytes/100 WBC (Bld) 8.5 % Normal 0-10 [facility] Comment on above: Performed By: #### L 501.9520, L500.4100, L506.0400, L503.6550, L503.0105, L100.0100, L506.1000, L500.4050, L503.6150, L501.9910 #### [facility] [address] [place], [address] Neutrophils/100 WBC (Bld) 60.1 % Normal 47-70 [facility] Comment on above: Performed By: #### L 501.9520, L500.4100, L506.0400, L503.6550, L503.0105, L100.0100, L506.1000, L500.4050, L503.6150, L501.9910 #### [facility] [address] [place], [address] Nucleated RBC (Bld) [#/Vol] 0 10*3/uL Normal 0-5 [facility] Comment on above: Performed By: #### L 501.9520, L500.4100, L506.0400, L503.6550, L503.0105, L100.0100, L506.1000, L500.4050, L503.6150, L501.9910 #### [facility] [address] [place], [address] Platelet mean volume (Bld) [Entitic vol] 11.2 fL Normal 6.2-12.0 [facility] Comment on above: Performed By: #### L 501.9520, L500.4100, L506.0400, L503.6550, L503.0105, L100.0100, L506.1000, L500.4050, L503.6150, L501.9910 #### [facility] [address] [place], [place], [phone] (521) Platelets (Bld) [#/Vol] 163 10*3/uL Normal 150-450 [facility] Comment on above: Performed By: #### L 501.9520, L500.4100, L506.0400, L503.6550, L503.0105, L100.0100, L506.1000, L500.4050, L503.6150, L501.9910 #### [facility] [address] [place], [place], [phone] (700) RBC (Bld) [#/Vol] 3.93 10*6/uL Low 4.6-6.2 [facility] Comment on above: Performed By: #### L 501.9520, L500.4100, L506.0400, L503.6550, L503.0105, L100.0100, L506.1000, L500.4050, L503.6150, L501.9910 #### [facility] [address] [place], [address] RDW SD 47.2 fl High 35.1-43.9 [facility] Comment on above: Performed By: #### L 501.9520, L500.4100, L506.0400, L503.6550, L503.0105, L100.0100, L506.1000, L500.4050, L503.6150, L501.9910 #### [facility] [address] [place], [address] WBC (Bld) [#/Vol] 6.5 10*3/uL Normal 4.4-11.0 [facility] Comment on above: Performed By: #### L 501.9520, L500.4100, L506.0400, L503.6550, L503.0105, L100.0100, L506.1000, L500.4050, L503.6150, L501.9910 #### [facility] [address] [place], [address] Comprehensive Metabolic [facility] 09-06-2024 Albumin [Mass/Vol] 4.2 g/dL Normal 3.4-4.8 [facility] Comment on above: Performed By: #### L 501.9520, L500.4100, L506.0400, L503.6550, L503.0105, L100.0100, L506.1000, L500.4050, L503.6150, L501.9910 #### [facility] [address] [place], [address] Albumin/Globulin [Mass ratio] 1.7 {ratio} Normal 0.9-2.4 [facility] Comment on above: Performed By: #### L 501.9520, L500.4100, L506.0400, L503.6550, L503.0105, L100.0100, L506.1000, L500.4050, L503.6150, L501.9910 #### [facility] [address] [place], [place], [phone] ALK PHOS 115 U/L Normal 40-129 [facility] Comment on above: Performed By: #### L 501.9520, L500.4100, L506.0400, L503.6550, L503.0105, L100.0100, L506.1000, L500.4050, L503.6150, L501.9910 #### [facility] [address] [place], [place], [id number] (258) ALT [Catalytic activity/Vol] 18 U/L Normal <=46 [facility] Comment on above: Performed By: #### L 501.9520, L500.4100, L506.0400, L503.6550, L503.0105, L100.0100, L506.1000, L500.4050, L503.6150, L501.9910 #### [facility] [address] [place], [place], [phone] (060) AST [Catalytic activity/Vol] 28 U/L Normal <=37 [facility] Comment on above: Performed By: #### L 501.9520, L500.4100, L506.0400, L503.6550, L503.0105, L100.0100, L506.1000, L500.4050, L503.6150, L501.9910 #### [facility] [address] [place], [place], [id number] Bilirubin [Mass/Vol] 0.25 mg/dL Normal 0.00-1.30 [facility] Comment on above: Performed By: #### L 501.9520, L500.4100, L506.0400, L503.6550, L503.0105, L100.0100, L506.1000, L500.4050, L503.6150, L501.9910 #### [facility] [address] [place], [place], [phone] (930) BUN/CRE 25.1 RATIO High 10-20 [facility] Comment on above: Performed By: #### L 501.9520, L500.4100, L506.0400, L503.6550, L503.0105, L100.0100, L506.1000, L500.4050, L503.6150, L501.9910 #### [facility] [address] [place], [address] Calcium [Mass/Vol] 10.2 mg/dL Normal 7.6-11.0 [facility] Comment on above: Performed By: #### L 501.9520, L500.4100, L506.0400, L503.6550, L503.0105, L100.0100, L506.1000, L500.4050, L503.6150, L501.9910 #### [facility] [address] [place], [address] Chloride [Moles/Vol] 102 mmol/L Normal 98-108 [facility] Comment on above: Performed By: #### L 501.9520, L500.4100, L506.0400, L503.6550, L503.0105, L100.0100, L506.1000, L500.4050, L503.6150, L501.9910 #### [facility] [address] [place], [address] CO2 [Moles/Vol] 23.6 mmol/L Normal 21.0-32.0 [facility] Comment on above: Performed By: #### L 501.9520, L500.4100, L506.0400, L503.6550, L503.0105, L100.0100, L506.1000, L500.4050, L503.6150, L501.9910 #### [facility] [address] [place], [address] Creatinine [Mass/Vol] 1.37 mg/dL High 0.70-1.20 [facility] Comment on above: Performed By: #### L 501.9520, L500.4100, L506.0400, L503.6550, L503.0105, L100.0100, L506.1000, L500.4050, L503.6150, L501.9910 #### [facility] [address] [place], [address] GAP 12 Normal 5-15 [facility] Comment on above: Performed By: #### L 501.9520, L500.4100, L506.0400, L503.6550, L503.0105, L100.0100, L506.1000, L500.4050, L503.6150, L501.9910 #### [facility] [address] [place], [address] GFR/1.73 sq M.predicted among non-blacks MDRD (S/P/Bld) [Vol rate/Area] 52 mL/min/{1.73_m2} Low >60 [facility] Comment on above: Result Comment: mL/m in/1.73m2 CKD-EPI Creatinine Equation (2020) Performed By: #### L 501.9520, L500.4100, L506.0400, L503.6550, L503.0105, L100.0100, L506.1000, L500.4050, L503.6150, L501.9910 #### [facility] [address] [place], [address] Globulin (S) [Mass/Vol] 2.6 g/dL Normal 2.2-4.2 [facility] Comment on above: Performed By: #### L 501.9520, L500.4100, L506.0400, L503.6550, L503.0105, L100.0100, L506.1000, L500.4050, L503.6150, L501.9910 #### [facility] [address] [place], [address] Glucose [Mass/Vol] 109 mg/dL High 70-99 [facility] Comment on above: Performed By: #### L 501.9520, L500.4100, L506.0400, L503.6550, L503.0105, L100.0100, L506.1000, L500.4050, L503.6150, L501.9910 #### [facility] [address] [place], [address] Potassium [Moles/Vol] 4.1 mmol/L Normal 3.3-5.1 [facility] Comment on above: Performed By: #### L 501.9520, L500.4100, L506.0400, L503.6550, L503.0105, L100.0100, L506.1000, L500.4050, L503.6150, L501.9910 #### [facility] [address] [place], [address] Sodium [Moles/Vol] 137 mmol/L Normal 133-145 [facility] Comment on above: Performed By: #### L 501.9520, L500.4100, L506.0400, L503.6550, L503.0105, L100.0100, L506.1000, L500.4050, L503.6150, L501.9910 #### [facility] [address] [place], [address] T PROT 6.8 g/dL Normal 5.9-8.4 [facility] Comment on above: Performed By: #### L 501.9520, L500.4100, L506.0400, L503.6550, L503.0105, L100.0100, L506.1000, L500.4050, L503.6150, L501.9910 #### [facility] [address] [place], [address] Urea nitrogen [Mass/Vol] 34 mg/dL High 4-19 [facility] Comment on above: Performed By: #### L 501.9520, L500.4100, L506.0400, L503.6550, L503.0105, L100.0100, L506.1000, L500.4050, L503.6150, L501.9910 #### [facility] [address] [place], [place], [id number] Lipid Profileon 09-06-2024 CHOL:HDL 5.18 Normal [facility] Comment on above: Performed By: #### L 501.9520, L500.4100, L506.0400, L503.6550, L503.0105, L100.0100, L506.1000, L500.4050, L503.6150, L501.9910 #### [facility] [address] [place], [place], [phone] (598) Cholesterol [Mass/Vol] 177 mg/dL Normal <=200 [facility] Comment on above: Result Comment: Chol esterol level, Desirable <200 mg/dL Borderline high cholesterol 200-239 mg/dL High cholesterol >=240 mg/dL Recommendations of the NCEP Adult Treatment Panel for the following risk-cutoff thresholds for the [place] population. Performed By: #### L 501.9520, L500.4100, L506.0400, L503.6550, L503.0105, L100.0100, L506.1000, L500.4050, L503.6150, L501.9910 #### [facility] [address] [place], [place], [id number] Cholesterol in HDL [Mass/Vol] 34 mg/dL Low [facility] Comment on above: Result Comment: Ruba onal Cholesterol Education Program (NCEP) guidelines: <40 mg/dL: Low HDL-cholesterol (major risk factor for CHD) >= 60 mg/dL: High HDL-cholesterol (negative risk factor for CHD) HDL-cholesterol is affected by a number of factors, e.g. smoking, exercise, hormones, sex and age. Performed By: #### L 501.9520, L500.4100, L506.0400, L503.6550, L503.0105, L100.0100, L506.1000, L500.4050, L503.6150, L501.9910 #### [facility] [address] [place], [address] Cholesterol in LDL [Mass/Vol] 100 mg/dL Normal [facility] Comment on above: Result Comment: Bord ldvbal=641-330 mg/dL Higher Mhnm=866 mg/dL or greater Performed By: #### L 501.9520, L500.4100, L506.0400, L503.6550, L503.0105, L100.0100, L506.1000, L500.4050, L503.6150, L501.9910 #### [facility] [address] [place], [place], [id number] (984) Cholesterol in VLDL [Mass/Vol] 43 mg/dL High 5-40 [facility] Comment on above: Performed By: #### L 501.9520, L500.4100, L506.0400, L503.6550, L503.0105, L100.0100, L506.1000, L500.4050, L503.6150, L501.9910 #### [facility] [address] [place], [address] Triglyceride [Mass/Vol] 216 mg/dL High [facility] Comment on above: Result Comment: The drugs N-Acetylcysteine and Metamizole may falsely depress this assay. Normal range: <150 mg/dL Borderline High: 150-199 mg/dL High: 200-499 mg/dL Very High: >500 mg/dL Performed By: #### L 501.9520, L500.4100, L506.0400, L503.6550, L503.0105, L100.0100, L506.1000, L500.4050, L503.6150, L501.9910 #### [facility] [address] [place], [address] CK Totalon 06-23-2024 CK [Catalytic activity/Vol] 164 U/L Normal 39-308 [facility] Comment on above: Performed By: #### C Juan Diego #### [facility] [address] [place] [address] CBC W/Diff, Automatedon 10-18 Absolute Lymph 1.88 X10 3/uL Normal 0.83-4.51 [facility] Comment on above: Performed By: #### L 501.9520, L500.4100, L506.0400, L503.6550, L503.0105, L100.0100, L506.1000, L500.4050, L503.6150, L501.9910 #### [facility] [address] [place], [address] Absolute Neut 3.4 X10 3/uL Normal 2.0-7.7 [facility] Comment on above: Performed By: #### L 501.9520, L500.4100, L506.0400, L503.6550, L503.0105, L100.0100, L506.1000, L500.4050, L503.6150, L501.9910 #### [facility] [address] [place], [address] Basophils/100 WBC (Bld) 0.5 % Normal 0-1 [facility] Comment on above: Performed By: #### L 501.9520, L500.4100, L506.0400, L503.6550, L503.0105, L100.0100, L506.1000, L500.4050, L503.6150, L501.9910 #### [facility] [address] [place], [address] Eosinophils/100 WBC (Bld) 3.4 % Normal 0-5 [facility] Comment on above: Performed By: #### L 501.9520, L500.4100, L506.0400, L503.6550, L503.0105, L100.0100, L506.1000, L500.4050, L503.6150, L501.9910 #### [facility] [address] [place], [address] Erythrocyte distribution width (RBC) [Ratio] 14.7 % High 11.6-14.6 [facility] Comment on above: Performed By: #### L 501.9520, L500.4100, L506.0400, L503.6550, L503.0105, L100.0100, L506.1000, L500.4050, L503.6150, L501.9910 #### [facility] [address] [place], [address] (566) Hematocrit (Bld) [Volume fraction] 38.4 % Low 40-54 [facility] Comment on above: Performed By: #### L 501.9520, L500.4100, L506.0400, L503.6550, L503.0105, L100.0100, L506.1000, L500.4050, L503.6150, L501.9910 #### [facility] [address] [place], [address] (821) Hemoglobin (Bld) [Mass/Vol] 12.4 g/dL Low 13.0-16.5 [facility] Comment on above: Performed By: #### L 501.9520, L500.4100, L506.0400, L503.6550, L503.0105, L100.0100, L506.1000, L500.4050, L503.6150, L501.9910 #### [facility] [address] [place], [address] IG% 0.700 Normal 0.0-0.9 [facility] Comment on above: Result Comment: IG% - Immature Granulocytes (promyelocytes, myelocytes and metamyelocytes) > 1% indicates that a LEFT SHIFT is Present. Performed By: #### L 501.9520, L500.4100, L506.0400, L503.6550, L503.0105, L100.0100, L506.1000, L500.4050, L503.6150, L501.9910 #### [facility] [address] [place], [address] Lymphocytes/100 WBC (Bld) 31.8 % Normal 19-41 [facility] Comment on above: Performed By: #### L 501.9520, L500.4100, L506.0400, L503.6550, L503.0105, L100.0100, L506.1000, L500.4050, L503.6150, L501.9910 #### [facility] [address] [facility] [place], [address] MCH (RBC) [Entitic mass] 31.2 pg Normal 27.0-32.0 [facility] Comment on above: Performed By: #### L 501.9520, L500.4100, L506.0400, L503.6550, L503.0105, L100.0100, L506.1000, L500.4050, L503.6150, L501.9910 #### [facility] [address] [facility] [place], [address] MCHC (RBC) [Mass/Vol] 32.3 g/dL Normal 32-36 [facility] Comment on above: Performed By: #### L 501.9520, L500.4100, L506.0400, L503.6550, L503.0105, L100.0100, L506.1000, L500.4050, L503.6150, L501.9910 #### [facility] [address] [place], [address] MCV (RBC) [Entitic vol] 96.5 fL High 80-94 [facility] Comment on above: Performed By: #### L 501.9520, L500.4100, L506.0400, L503.6550, L503.0105, L100.0100, L506.1000, L500.4050, L503.6150, L501.9910 #### [facility] [address] [place], [address] Monocytes/100 WBC (Bld) 6.6 % Normal 0-10 [facility] Comment on above: Performed By: #### L 501.9520, L500.4100, L506.0400, L503.6550, L503.0105, L100.0100, L506.1000, L500.4050, L503.6150, L501.9910 #### [facility] [address] [facility] [place], [address] Neutrophils/100 WBC (Bld) 57.0 % Normal 47-70 [facility] Comment on above: Performed By: #### L 501.9520, L500.4100, L506.0400, L503.6550, L503.0105, L100.0100, L506.1000, L500.4050, L503.6150, L501.9910 #### [facility] [address] [place], [address] Nucleated RBC (Bld) [#/Vol] 0 10*3/uL Normal 0-5 [facility] Comment on above: Performed By: #### L 501.9520, L500.4100, L506.0400, L503.6550, L503.0105, L100.0100, L506.1000, L500.4050, L503.6150, L501.9910 #### [facility] [address] [place], [address] Platelet mean volume (Bld) [Entitic vol] 11.2 fL Normal 6.2-12.0 [facility] Comment on above: Performed By: #### L 501.9520, L500.4100, L506.0400, L503.6550, L503.0105, L100.0100, L506.1000, L500.4050, L503.6150, L501.9910 #### [facility] [address] [place], [address] Platelets (Bld) [#/Vol] 152 10*3/uL Normal 150-450 [facility] Comment on above: Performed By: #### L 501.9520, L500.4100, L506.0400, L503.6550, L503.0105, L100.0100, L506.1000, L500.4050, L503.6150, L501.9910 #### [facility] [address] [place], [address] RBC (Bld) [#/Vol] 3.98 10*6/uL Low 4.6-6.2 [facility] Comment on above: Performed By: #### L [id number], L500.4100, L506.0400, L503.6550, L503.0105, L100.0100, L506.1000, L500.4050, L503.6150, L501.9910 #### [facility] [address] [place], [address] RDW SD 51.5 fl High 35.1-43.9 [facility] Comment on above: Performed By: #### L [id number], L500.4100, L506.0400, L503.6550, L503.0105, L100.0100, L506.1000, L500.4050, L503.6150, L501.9910 #### [facility] [address] [place], [address] WBC (Bld) [#/Vol] 5.9 10*3/uL Normal 4.4-11.0 [facility] Comment on above: Performed By: #### L [id number], L500.4100, L506.0400, L503.6550, L503.0105, L100.0100, L506.1000, L500.4050, L503.6150, L501.9910 #### [facility] [address] [place], [address] Comprehensive Metabolic [facility] ilon 11-10-2023 Albumin [Mass/Vol] 4.0 g/dL Normal 3.2-5.0 [facility] Comment on above: Performed By: #### L [id number], L500.4100, L506.0400, L503.6550, L503.0105, L100.0100, L506.1000, L500.4050, L503.6150, L501.9910 #### [facility] [address] [place], [place], [id number] Albumin/Globulin [Mass ratio] 1.2 {ratio} Normal 0.9-2.4 [facility] Comment on above: Performed By: #### L [id number], L500.4100, L506.0400, L503.6550, L503.0105, L100.0100, L506.1000, L500.4050, L503.6150, L501.9910 #### [facility] [address] [place], [place], [id number] ALK P 103 U/L Normal 45-117 [facility] Comment on above: Performed By: #### L [id number], L500.4100, L506.0400, L503.6550, L503.0105, L100.0100, L506.1000, L500.4050, L503.6150, L501.9910 #### [facility] [address] [place], [place], [address] ALT [Catalytic activity/Vol] 33 U/L Normal 16-61 [facility] Comment on above: Performed By: #### L [id number], L500.4100, L506.0400, L503.6550, L503.0105, L100.0100, L506.1000, L500.4050, L503.6150, L501.9910 #### [facility] [address] [place], [address] AST [Catalytic activity/Vol] 27 U/L Normal 15-37 [facility] Comment on above: Performed By: #### L [id number], L500.4100, L506.0400, L503.6550, L503.0105, L100.0100, L506.1000, L500.4050, L503.6150, L501.9910 #### [facility] [address] [place], [place], [id number] (138) Bilirubin [Mass/Vol] 0.50 mg/dL Normal 0.20-1.00 [facility] Comment on above: Result Comment: For patients on eltrombopag therapy, use of Dimension [place] TBIL is not recommended. Performed By: #### L [id number], L500.4100, L506.0400, L503.6550, L503.0105, L100.0100, L506.1000, L500.4050, L503.6150, L501.9910 #### [facility] [address] [place], [place], [id number] (922) BUN/CRE 31.9 RATIO High 10-20 [facility] Comment on above: Performed By: #### L [id number], L500.4100, L506.0400, L503.6550, L503.0105, L100.0100, L506.1000, L500.4050, L503.6150, L501.9910 #### [facility] [address] [place], [address] CA,Total 9.9 mg/dL Normal 8.5-10.1 [facility] Comment on above: Performed By: #### L [id number], L500.4100, L506.0400, L503.6550, L503.0105, L100.0100, L506.1000, L500.4050, L503.6150, L501.9910 #### [facility] [address] [place], [address] Chloride [Moles/Vol] 104 mmol/L Normal 98-107 [facility] Comment on above: Performed By: #### L [id number], L500.4100, L506.0400, L503.6550, L503.0105, L100.0100, L506.1000, L500.4050, L503.6150, L501.9910 #### [facility] [address] [place], [address] CO2 [Moles/Vol] 27.0 mmol/L Normal 21.0-32.0 [facility] Comment on above: Performed By: #### L [id number], L500.4100, L506.0400, L503.6550, L503.0105, L100.0100, L506.1000, L500.4050, L503.6150, L501.9910 #### [facility] [address] [place], [address] Creatinine [Mass/Vol] 1.16 mg/dL Normal 0.70-1.30 [facility] Comment on above: Result Comment: The validity of the calculated GFR GFRAA in patients over 70 years has not been determined. Clinical correlation is essential. Performed By: #### L [id number], L500.4100, L506.0400, L503.6550, L503.0105, L100.0100, L506.1000, L500.4050, L503.6150, L501.9910 #### [facility] [address] [place], [address] EST GFR - AA 78 mL/min Normal >60 [facility] Comment on above: Result Comment: Afri can [place] GFR Calc Performed By: #### L [id number], L500.4100, L506.0400, L503.6550, L503.0105, L100.0100, L506.1000, L500.4050, L503.6150, L501.9910 #### [facility] [address] [place], [address] GAP 7 Normal 5-15 [facility] Comment on above: Performed By: #### L [id number], L500.4100, L506.0400, L503.6550, L503.0105, L100.0100, L506.1000, L500.4050, L503.6150, L501.9910 #### [facility] [address] [place], [place], [id number] (743) GFR/1.73 sq M.predicted among non-blacks MDRD (S/P/Bld) [Vol rate/Area] 64 mL/min/{1.73_m2} Normal >60 [facility] Comment on above: Result Comment: Non- GFR Calc Performed By: #### L [id number], L500.4100, L506.0400, L503.6550, L503.0105, L100.0100, L506.1000, L500.4050, L503.6150, L501.9910 #### [facility] [address] [place], [place], [id number] (939) Globulin (S) [Mass/Vol] 3.2 g/dL Normal 2.2-4.2 [facility] Comment on above: Performed By: #### L [id number], L500.4100, L506.0400, L503.6550, L503.0105, L100.0100, L506.1000, L500.4050, L503.6150, L501.9910 #### [facility] [address] [place], [address] Glucose [Mass/Vol] 100 mg/dL Normal 74-106 [facility] Comment on above: Result Comment: Fast ing Glucose result from 100 to 125 mg/dL suggests IMPAIRED HOMEOSTASIS per A.D.A. criteria. Performed By: #### L [id number], L500.4100, L506.0400, L503.6550, L503.0105, L100.0100, L506.1000, L500.4050, L503.6150, L501.9910 #### [facility] [address] [place], [address] Potassium [Moles/Vol] 3.9 mmol/L Normal 3.5-5.1 [facility] Comment on above: Performed By: #### L [id number], L500.4100, L506.0400, L503.6550, L503.0105, L100.0100, L506.1000, L500.4050, L503.6150, L501.9910 #### [facility] [address] [place], [address] Sodium [Moles/Vol] 138 mmol/L Normal 136-145 [facility] Comment on above: Performed By: #### L 501.9520, L500.4100, L506.0400, L503.6550, L503.0105, L100.0100, L506.1000, L500.4050, L503.6150, L501.9910 #### [facility] [address] [place], [address] T PROT 7.2 g/dL Normal 6.4-8.2 [facility] Comment on above: Performed By: #### L 501.9520, L500.4100, L506.0400, L503.6550, L503.0105, L100.0100, L506.1000, L500.4050, L503.6150, L501.9910 #### [facility] [address] [place], [place], [id number] Urea nitrogen [Mass/Vol] 37 mg/dL High 7-18 [facility] Comment on above: Performed By: #### L [id number], L500.4100, L506.0400, L503.6550, L503.0105, L100.0100, L506.1000, L500.4050, L503.6150, L501.9910 #### [facility] [address] [place], [address] Ferritinon 11-10-2023 Ferritin [Mass/Vol] 327 ng/mL Normal 26-388 [facility] Comment on above: Performed By: #### L [id number], L500.4100, L506.0400, L503.6550, L503.0105, L100.0100, L506.1000, L500.4050, L503.6150, L501.9910 #### [facility] [address] [facility]. [place], [place], [address] Ironon 11-10-2023 Iron [Mass/Vol] 97 ug/dL Normal 65-175 [facility] Comment on above: Performed By: #### L 501.9520, L500.4100, L506.0400, L503.6550, L503.0105, L100.0100, L506.1000, L500.4050, L503.6150, L501.9910 #### [facility] [address] [facility] [place], [place], [id number] Lipid Profileon 11-10-2023 Cholesterol [Mass/Vol] 172 mg/dL Normal 200 [facility] Comment on above: Result Comment: <200 mg/dL Desirable 200-240 mg/dL Borderline >240 mg/dL High Risk Performed By: #### L 501.9520, L500.4100, L506.0400, L503.6550, L503.0105, L100.0100, L506.1000, L500.4050, L503.6150, L501.9910 #### [facility] [address] [place], [address] Cholesterol in HDL [Mass/Vol] 42 mg/dL Normal [facility] Comment on above: Result Comment: The drugs N-Acetylcysteine and Metamizole may falsely depress this assay. Reference Range HDL <40 mg/dL Low HDL Cholesterol HDL >or= 60 mg/dL High HDL Cholesterol Performed By: #### L 501.9520, L500.4100, L506.0400, L503.6550, L503.0105, L100.0100, L506.1000, L500.4050, L503.6150, L501.9910 #### [facility] [address] [place], [address] Cholesterol in LDL [Mass/Vol] 107 mg/dL Normal 0-130 [facility] Comment on above: Performed By: #### L 501.9520, L500.4100, L506.0400, L503.6550, L503.0105, L100.0100, L506.1000, L500.4050, L503.6150, L501.9910 #### [facility] [address] [place], [address] Cholesterol in VLDL [Mass/Vol] 23 mg/dL Normal 5-40 [facility] Comment on above: Performed By: #### L 501.9520, L500.4100, L506.0400, L503.6550, L503.0105, L100.0100, L506.1000, L500.4050, L503.6150, L501.9910 #### [facility] [address] [facility] [place], [address] Triglyceride [Mass/Vol] 113 mg/dL Normal [facility] Comment on above: Result Comment: The drugs N-Acetylcysteine and Metamizole may falsely depress this assay. Serum Triglycerides Reference Interval Normal <150 mg/dL Borderline high 150 - 199 mg/dL High 200 - 499 mg/dL Very High > or = 500 mg/dL Performed By: #### L [id number], L500.4100, L506.0400, L503.6550, L503.0105, L100.0100, L506.1000, L500.4050, L503.6150, L501.9910 #### [facility] [address] [place], [address] PSA,Total - Annual Screenon 11-10-2023 PSA,TOT SCREEN 0.37 ng/mL Normal 0.00-4.00 [facility] Comment on above: Result Comment: This test was performed using the TPSA assay method for the [employer] chemistry system. Values obtained with different assay methods cannot be used interchangably. When changing PSA assays in the course of monitoring a patient, additional sequential testing should be carried out to confirm baseline values. Performed By: #### L [id number], L500.4100, L506.0400, L503.6550, L503.0105, L100.0100, L506.1000, L500.4050, L503.6150, L501.9910 #### [facility] [address] [place], [address] T4 Free Directon 11-10-2023 T4 FREE DIRECT 0.92 ng/dL Normal 0.76-1.46 [facility] Comment on above: Performed By: #### L [id number], L500.4100, L506.0400, L503.6550, L503.0105, L100.0100, L506.1000, L500.4050, L503.6150, L501.9910 #### [facility] [address] [place], [address] Thyroid Stim Hormone (TSH)on 11-10-2023 TSH 2.68 uIU/mL Normal 0.358-3.74 [facility] Comment on above: Performed By: #### L [id number], L500.4100, L506.0400, L503.6550, L503.0105, L100.0100, L506.1000, L500.4050, L503.6150, L501.9910 #### [facility] [address] [facility] [place], [address] Vitamin B12on 11-10-2023 Cobalamin (Vitamin B12) [Mass/Vol] 722 pg/mL Normal 211-911 [facility] Comment on above: Performed By: #### L [id number], L500.4100, L506.0400, L503.6550, L503.0105, L100.0100, L506.1000, L500.4050, L503.6150, L501.9910 #### [facility] [address] [facility] [place], [place], [id number] (551) Vitamin D,25 Hydroxyon 11-09 Vitamin D 25-OH 41.3 ng/mL Normal [facility] Comment on above: Result Comment: Veronika min D 25(OH) Status Range Deficiency <20 ng/mL (50nmol/L) Insufficiency 20 - 30 ng/mL (50 - 75 nmol/L) Sufficiency 30 - 100 ng/mL (75 - 250 nmol/L) Toxicity >100 ng/mL (>250 nmol/L) Performed By: #### L [id number], L500.4100, L506.0400, L503.6550, L503.0105, L100.0100, L506.1000, L500.4050, L503.6150, L501.9910 #### [facility] [address] [facility] [place], [place], [id number] Absolute lymphocyte countOrd ered By: Shirley Wood on 06-03-2023 Lymphocytes Auto (Unsp spec) [#/Vol] 1.90 10*3/uL 0.83-4.51 [facility] Automated lymphocyte count a s percentage of total leukocytesOrdered By: Shirley Wood on 06-03-2023 Lymphocytes/100 WBC Auto (Unsp spec) 28.6 % 19-41 [facility] Basophil percentageOrdered B y: Shirley Wood on 06-03-2023 Basophils/100 WBC (Bld) 0.6 % 0-1 [facility] Bilirubin [Mass/Vol] 0.80 mg/dL 0.20-1.00 [facility] Comment on above: For patients on eltr ombopag therapy, use of Dimension [place] TBIL is not recommended. Chloride [Moles/Vol] 104 mmol/L 98-107 [facility] Eosinophils/100 WBC (Bld) 2.3 % 0-5 [facility] Glucose [Mass/Vol] 70 mg/dL 74-106 [facility] Hemoglobin (Bld) [Mass/Vol] 14.0 g/dL 13.0-16.5 [facility] Monocytes/100 WBC (Bld) 7.5 % 0-10 [facility] Neutrophils (Bld) [#/Vol] 4.0 10*3/uL 2.0-7.7 [facility] Neutrophils/100 WBC (Bld) 60.7 % 47-70 [facility] Potassium [Moles/Vol] 3.6 mmol/L 3.5-5.1 [facility] Protein [Mass/Vol] 7.1 g/dL 6.4-8.2 [facility] Sodium [Moles/Vol] 139 mmol/L 136-145 [facility] WBC (Bld) [#/Vol] 6.6 10*3/uL 4.4-11.0 [facility] Determination of erythrocyte mean corpuscular volume (MCV)Ordered By: Shirley Wood on 06-03-2023 MCV (RBC) [Entitic vol] 96.9 fL 80-94 [facility] Erythrocyte distribution wid th ratioOrdered By: Shirleyoli Wood on 06-03-2023 Erythrocyte distribution width (RBC) [Ratio] 14.6 % 11.6-14.6 [facility] Erythrocyte distribution wid th standard deviationOrdered By: Shirley Wood on 06-03-2023 Erythrocyte distribution width (RBC) [Entitic vol] 52.1 fL 35.1-43.9 [facility] Hematocrit Auto (Bld) [Volum e fraction]Ordered By: Shirley Wood on 06-03-2023 Hematocrit (Bld) [Volume fraction] 43.2 % 40-54 [facility] Immature granulocytes/100 WB C Auto (Bld)Ordered By: Shirley Wood on 06-03-2023 Immature granulocytes/100 WBC (Bld) 0.300 % 0.0-0.9 [facility] Comment on above: IG% - Immature Granu locytes (promyelocytes, myelocytes and metamyelocytes) > 1% indicates that a LEFT SHIFT is Present. Laboratory - Chemistry and C hemistry - challengeOrdered By: Shirley Wood on 06-03-2023 Albumin/Globulin [Mass ratio] 1.1 {ratio} 0.9-2.4 [facility] ALP [Catalytic activity/Vol] 111 U/L 45-117 [facility] ALT [Catalytic activity/Vol] 23 U/L 16-61 [facility] CO2 [Moles/Vol] 27.0 mmol/L 21.0-32.0 [facility] Globulin (S) [Mass/Vol] 3.4 g/dL 2.2-4.2 [facility] Urea nitrogen/Creatinine [Mass ratio] 22.0 mg/mg 10-20 [facility] - Hematology and Cell countsOrdered By: Shirley Wood on 06-03-2023 MCH (RBC) [Entitic mass] 31.4 pg 27.0-32.0 [facility] MCHC (RBC) [Mass/Vol] 32.4 g/dL 32-36 [facility] Nucleated RBC/100 WBC (Bld) [Ratio] 0 % 0-5 [facility] Platelets (Bld) [#/Vol] 169 10*3/uL 150-450 [facility] No Panel InformationOrdered By: Shirley Wood on 06-03-2023 Estimated GFR (MDRD) Amer 76 mL/min >60 [facility] Comment on above: GFR Calc Estimated GFR (MDRD) Non-Af Amer 63 mL/min >60 [facility] Comment on above: Non- GFR Calc Platelet mean volume Ayad-Ec ker (Bld) [Entitic vol]Ordered By: Shirley Wood on 06-03-2023 Platelet mean volume (Bld) [Entitic vol] 11.3 fL 6.2-12.0 [facility] RBC Auto (Bld) [#/Vol]Ordere d By: Shirley Wood on 06-03-2023 RBC (Bld) [#/Vol] 4.46 10*6/uL 4.6-6.2 [facility] Serum or plasma calcium shakeel urement (mass/volume)Ordered By: Shirley Wood on 06-03-2023 Calcium [Mass/Vol] 9.9 mg/dL 8.5-10.1 [facility] Serum or plasma creatinine m easurement (mass/volume)Ordered By: Shirley Wood on 06-03-2023 Creatinine [Mass/Vol] 1.18 mg/dL 0.70-1.30 [facility] Comment on above: The validity of the calculated GFR & GFRAA in patients over 70 years has not been determined. Clinical correlation is essential. Serum or plasma urea nitroge n measurement (mass/volume)Ordered By: Shirley Wood on 06-03-2023 Urea nitrogen [Mass/Vol] 26 mg/dL 7-18 [facility] Thin prep Papanicolaou smear with manual screeningOrdered By: Shirley Wood on 06-03-2023 Thin prep Papanicolaou smear with manual screening 3.7 g/dL 3.2-5.0 [facility] Thin prep Papanicolaou smear with manual screening 21 U/L 15-37 [facility] Thin prep Papanicolaou smear with manual screening 8 5-15 [facility] Absolute lymphocyte countOrd ered By: Shirley Wood on 05-01-2023 Lymphocytes Auto (Unsp spec) [#/Vol] 2.13 10*3/uL 0.83-4.51 [facility] Basophil percentageOrdered B y: Shirley Wood on 05-01-2023 Basophils/100 WBC (Bld) 0.7 % 0-1 [facility] Bilirubin [Mass/Vol] 0.50 mg/dL 0.20-1.00 [facility] Comment on above: For patients on eltr ombopag therapy, use of Dimension [place] TBIL is not recommended. Chloride [Moles/Vol] 106 mmol/L 98-107 [facility] Eosinophils/100 WBC (Bld) 2.2 % 0-5 [facility] Glucose [Mass/Vol] 144 mg/dL 74-106 [facility] Comment on above: Fasting Glucose resu lt greater than or equal to 126 mg/dL suggests DIABETES MELLITUS per A.D.A. criteria. Neutrophils (Bld) [#/Vol] 5.3 10*3/uL 2.0-7.7 [facility] Neutrophils/100 WBC (Bld) 64.5 % 47-70 [facility] Potassium [Moles/Vol] 4.0 mmol/L 3.5-5.1 [facility] Protein [Mass/Vol] 7.0 g/dL 6.4-8.2 [facility] Sodium [Moles/Vol] 138 mmol/L 136-145 [facility] WBC (Bld) [#/Vol] 8.2 10*3/uL 4.4-11.0 [facility] Blood erythrocytes count (nu mber/volume)Ordered By: Shirley Wood on 05-01-2023 RBC (Bld) [#/Vol] 4.45 10*6/uL 4.6-6.2 [facility] Blood hemoglobin measurement (mass/volume)Ordered By: Shirley Wood on 05-01-2023 Hemoglobin (Bld) [Mass/Vol] 14.0 g/dL 13.0-16.5 [facility] Blood lymphocytes/100 leukoc ytesOrdered By: Shirley Wood on 05-01-2023 Lymphocytes/100 WBC (Bld) 25.9 % 19-41 [facility] Blood monocytes/100 leukocyt esOrdered By: Shirley Wood on 05-01-2023 Monocytes/100 WBC (Bld) 6.3 % 0-10 [facility] Blood platelet mean volumeOr dered By: Shirley Wood on 05-01-2023 Platelet mean volume (Bld) [Entitic vol] 10.5 fL 6.2-12.0 [facility] Determination of erythrocyte mean corpuscular volume (MCV)Ordered By: Shirley Wood on 05-01-2023 MCV (RBC) [Entitic vol] 96.2 fL 80-94 [facility] Hematocrit Auto (Bld) [Volum e fraction]Ordered By: Shirley Wood on 05-01-2023 Hematocrit (Bld) [Volume fraction] 42.8 % 40-54 [facility] - Chemistry and C hemistry - challengeOrdered By: Shirley Wood on 05-01-2023 ALP [Catalytic activity/Vol] 110 U/L 45-117 [facility] ALT [Catalytic activity/Vol] 24 U/L 16-61 [facility] CO2 [Moles/Vol] 27.0 mmol/L 21.0-32.0 [facility] Globulin (S) [Mass/Vol] 3.5 g/dL 2.2-4.2 [facility] Urea nitrogen/Creatinine [Mass ratio] 27.8 mg/mg 10-20 [facility] - Hematology and Cell countsOrdered By: Shirley Wood on 05-01-2023 Erythrocyte distribution width (RBC) [Entitic vol] 50.3 fL 35.1-43.9 [facility] Erythrocyte distribution width (RBC) [Ratio] 14.4 % 11.6-14.6 [facility] Immature granulocytes/100 WBC (Bld) 0.400 % 0.0-0.9 [facility] Comment on above: IG% - Immature Granu locytes (promyelocytes, myelocytes and metamyelocytes) > 1% indicates that a LEFT SHIFT is Present. MCH (RBC) [Entitic mass] 31.5 pg 27.0-32.0 [facility] Nucleated RBC/100 WBC (Bld) [Ratio] 0 % 0-5 [facility] MCHC Auto (RBC) [Mass/Vol]Or dered By: Shirley Wood on 05-01-2023 MCHC (RBC) [Mass/Vol] 32.7 g/dL 32-36 [facility] No Panel InformationOrdered By: Shirley Wood on 05-01-2023 Estimated GFR (MDRD) Amer 66 mL/min >60 [facility] Comment on above: GFR Calc Estimated GFR (MDRD) Non-Af Amer 55 mL/min >60 [facility] Comment on above: Non- GFR Calc Platelets bldOrdered By: Sandeep Wood on 05-01-2023 Platelets (Bld) [#/Vol] 186 10*3/uL 150-450 [facility] Serum or plasma albumin shakeel urement (mass/volume)Ordered By: Shirley Wood on 05-01-2023 Albumin [Mass/Vol] 3.5 g/dL 3.2-5.0 [facility] Serum or plasma albumin/glob ulin mass ratioOrdered By: Shirley Wood on 05-01-2023 Albumin/Globulin [Mass ratio] 1.0 {ratio} 0.9-2.4 [facility] Serum or plasma calcium shakeel urement (mass/volume)Ordered By: Shirley Wood on 05-01-2023 Calcium [Mass/Vol] 10.0 mg/dL 8.5-10.1 [facility] Serum or plasma creatinine m easurement (mass/volume)Ordered By: Shirleyoli Wood on 05-01-2023 Creatinine [Mass/Vol] 1.33 mg/dL 0.70-1.30 [facility] Comment on above: The validity of the calculated GFR & GFRAA in patients over 70 years has not been determined. Clinical correlation is essential. Serum or plasma urea nitroge n measurement (mass/volume)Ordered By: Shirley Wood on 05-01-2023 Urea nitrogen [Mass/Vol] 37 mg/dL 7-18 [facility] Thin prep Papanicolaou smear with manual screeningOrdered By: [facility] Thin prep Papanicolaou smear with manual screening 24 U/L 15-37 [facility] Thin prep Papanicolaou smear with manual screening 5 5-15 [facility] Absolute lymphocyte countOrd ered By: Pedro Luis Oliva on 02-08-2023 Lymphocytes Auto (Unsp spec) [#/Vol] 1.32 10*3/uL 0.83-4.51 [facility] Basophil percentageOrdered B y: Pedro Luis Oliva on 02-08-2023 Basophils/100 WBC (Bld) 0.5 % 0-1 [facility] Chloride [Moles/Vol] 107 mmol/L 98-107 [facility] Eosinophils/100 WBC (Bld) 0.8 % 0-5 [facility] Glucose [Mass/Vol] 86 mg/dL 74-106 [facility] Neutrophils (Bld) [#/Vol] 9.5 10*3/uL 2.0-7.7 [facility] Neutrophils/100 WBC (Bld) 79.5 % 47-70 [facility] Potassium [Moles/Vol] 3.2 mmol/L 3.5-5.1 [facility] Sodium [Moles/Vol] 141 mmol/L 136-145 [facility] WBC (Bld) [#/Vol] 11.9 10*3/uL 4.4-11.0 [facility] Blood erythrocytes count (nu mber/volume)Ordered By: Pedro Luis Oliva on 02-08-2023 RBC (Bld) [#/Vol] 4.62 10*6/uL 4.6-6.2 [facility] Blood hemoglobin measurement (mass/volume)Ordered By: Pedro Luis Oliva on 02-08-2023 Hemoglobin (Bld) [Mass/Vol] 14.5 g/dL 13.0-16.5 [facility] Blood lymphocytes/100 leukoc ytesOrdered By: Pedro Luis Oliva on 02-08-2023 Lymphocytes/100 WBC (Bld) 11.1 % 19-41 [facility] Blood monocytes/100 leukocyt esOrdered By: Pedro Luis Oliva on 02-08-2023 Monocytes/100 WBC (Bld) 7.4 % 0-10 [facility] Blood platelet mean volumeOr dered By: Pedro Luis Oliva on 02-08-2023 Platelet mean volume (Bld) [Entitic vol] 10.5 fL 6.2-12.0 [facility] Determination of erythrocyte mean corpuscular volume (MCV)Ordered By: Pedro Luis Oliva on 02-08-2023 MCV (RBC) [Entitic vol] 95.9 fL 80-94 [facility] Hematocrit Auto (Bld) [Volum e fraction]Ordered By: Pedro Luis Oliva on 02-08-2023 Hematocrit (Bld) [Volume fraction] 44.3 % 40-54 [facility] Laboratory - Chemistry and C hemistry - challengeOrdered By: Pedro Luis Oliva on 02-08-2023 CO2 [Moles/Vol] 30.0 mmol/L 21.0-32.0 [facility] Magnesium [Mass/Vol] 2.1 mg/dL 1.6-2.6 [facility] Urea nitrogen/Creatinine [Mass ratio] 17.9 mg/mg 10-20 [facility] Laboratory - Hematology and Cell countsOrdered By: Pedro Luis Oliva on 02-08-2023 Erythrocyte distribution width (RBC) [Entitic vol] 52.0 fL 35.1-43.9 [facility] Erythrocyte distribution width (RBC) [Ratio] 14.8 % 11.6-14.6 [facility] Immature granulocytes/100 WBC (Bld) 0.700 % 0.0-0.9 [facility] Comment on above: IG% - Immature Granu locytes (promyelocytes, myelocytes and metamyelocytes) > 1% indicates that a LEFT SHIFT is Present. MCH (RBC) [Entitic mass] 31.4 pg 27.0-32.0 [facility] Nucleated RBC/100 WBC (Bld) [Ratio] 0 % 0-5 [facility] MCHC Auto (RBC) [Mass/Vol]Or dered By: Pedro Luis Oliva on 02-08-2023 MCHC (RBC) [Mass/Vol] 32.7 g/dL 32-36 [facility] No Panel InformationOrdered By: Pedro Luis Oliva on 02-08-2023 Estimated Creatinine Clearance Calc 36.54 ml/min [facility] Estimated GFR (MDRD) Amer 55 mL/min >60 [facility] Comment on above: GFR Calc Estimated GFR (MDRD) Non-Af Amer 46 mL/min >60 [facility] Comment on above: Non- GFR Calc Platelets bldOrdered By: Romario Oliva on 02-08-2023 Platelets (Bld) [#/Vol] 160 10*3/uL 150-450 [facility] Serum or plasma calcium shakeel urement (mass/volume)Ordered By: Pedro Luis Oliva on 02-08-2023 Calcium [Mass/Vol] 10.1 mg/dL 8.5-10.1 [facility] Serum or plasma creatinine m easurement (mass/volume)Ordered By: Pedro Luis Oliva on 02-08-2023 Creatinine [Mass/Vol] 1.56 mg/dL 0.70-1.30 [facility] Comment on above: The validity of the calculated GFR & GFRAA in patients over 70 years has not been determined. Clinical correlation is essential. Serum or plasma urea nitroge n measurement (mass/volume)Ordered By: Pedro Luis Oliva on 02-08-2023 Urea nitrogen [Mass/Vol] 28 mg/dL 7-18 [facility] Thin prep Papanicolaou smear with manual screeningOrdered By: Pedro Luis Oliva on 02-08-2023 Thin prep Papanicolaou smear with manual screening 4 5-15 [facility] Absolute lymphocyte countOrd ered By: Shirley Wood on 09-10-2022 Lymphocytes Auto (Unsp spec) [#/Vol] 1.83 10*3/uL 0.83-4.51 [facility] Basophil percentageOrdered B y: Shirley Israel on 09-10-2022 Basophils/100 WBC (Bld) 0.8 % 0-1 [facility] Bilirubin [Mass/Vol] 0.50 mg/dL 0.20-1.00 [facility] Comment on above: For patients on eltr ombopag therapy, use of Dimension [place] TBIL is not recommended. Chloride [Moles/Vol] 105 mmol/L 98-107 [facility] Cholesterol [Mass/Vol] 172 mg/dL <200 [facility] Comment on above: <200 mg/dL Desirable 200-240 mg/dL Borderline >240 mg/dL High Risk Eosinophils/100 WBC (Bld) 2.9 % 0-5 [facility] Glucose [Mass/Vol] 99 mg/dL 74-106 [facility] Neutrophils (Bld) [#/Vol] 4.0 10*3/uL 2.0-7.7 [facility] Neutrophils/100 WBC (Bld) 60.3 % 47-70 [facility] Potassium [Moles/Vol] 3.9 mmol/L 3.5-5.1 [facility] Protein [Mass/Vol] 7.4 g/dL 6.4-8.2 [facility] Sodium [Moles/Vol] 137 mmol/L 136-145 [facility] Testosterone [Mass/Vol] 431.04 ng/dL [facility] Comment on above: CENTRAL 90% REFERENC E RANGES MALE AGE <50 197.44 - 669.58 ng/dL MALE AGE > or = 50 187.72 - 684.19 ng/dL FEMALE AGE <50 8.38 - 35.01 ng/dL FEMALE AGE > or = 50 <7.00 - 35.92 ng/dL Effective as of 12/12/20 Triglyceride [Mass/Vol] 91 mg/dL <199 [facility] Comment on above: The drugs N-Acetylcy steine and Metamizole may falsely depress this assay.Serum Triglycerides Reference Interval Normal <150 mg/dL Borderline high 150 - 199 mg/dL High 200 - 499 mg/dL Very High > or = 500 mg/dL WBC (Bld) [#/Vol] 6.6 10*3/uL 4.4-11.0 [facility] Blood erythrocytes count (nu mber/volume)Ordered By: Shirley Wood on 09-10-2022 RBC (Bld) [#/Vol] 4.94 10*6/uL 4.6-6.2 [facility] Blood hemoglobin measurement (mass/volume)Ordered By: Shirley Wood on 09-10-2022 Hemoglobin (Bld) [Mass/Vol] 15.7 g/dL 13.0-16.5 [facility] Blood lymphocytes/100 leukoc ytesOrdered By: Shirley Wood on 09-10-2022 Lymphocytes/100 WBC (Bld) 27.9 % 19-41 [facility] Blood monocytes/100 leukocyt esOrdered By: Shirleyoli Wood on 09-10-2022 Monocytes/100 WBC (Bld) 7.5 % 0-10 [facility] Blood platelet mean volumeOr dered By: Shirley Wood on 09-10-2022 Platelet mean volume (Bld) [Entitic vol] 10.7 fL 6.2-12.0 [facility] Determination of erythrocyte mean corpuscular volume (MCV)Ordered By: Shirley Wood on 09-10-2022 MCV (RBC) [Entitic vol] 96.4 fL 80-94 [facility] Hematocrit Auto (Bld) [Volum e fraction]Ordered By: Shirley Wood on 09-10-2022 Hematocrit (Bld) [Volume fraction] 47.6 % 40-54 [facility] Laboratory - Chemistry and C hemistry - challengeOrdered By: Shirley Wood on 09-10-2022 ALP [Catalytic activity/Vol] 124 U/L 45-117 [facility] ALT [Catalytic activity/Vol] 30 U/L 16-61 [facility] CO2 [Moles/Vol] 29.0 mmol/L 21.0-32.0 [facility] Free T4 [Mass/Vol] 0.98 ng/dL 0.76-1.46 [facility] Globulin (S) [Mass/Vol] 3.5 g/dL 2.2-4.2 [facility] Urea nitrogen/Creatinine [Mass ratio] 19.5 mg/mg 10-20 [facility] Laboratory - Hematology and Cell countsOrdered By: Shirley Wood on 09-10-2022 Erythrocyte distribution width (RBC) [Entitic vol] 49.8 fL 35.1-43.9 [facility] Erythrocyte distribution width (RBC) [Ratio] 14.2 % 11.6-14.6 [facility] Immature granulocytes/100 WBC (Bld) 0.600 % 0.0-0.9 [facility] Comment on above: IG% - Immature Granu locytes (promyelocytes, myelocytes and metamyelocytes) > 1% indicates that a LEFT SHIFT is Present. MCH (RBC) [Entitic mass] 31.8 pg 27.0-32.0 [facility] Nucleated RBC/100 WBC (Bld) [Ratio] 0 % 0-5 [facility] MCHC Auto (RBC) [Mass/Vol]Or dered By: Shirley Wood on 09-10-2022 MCHC (RBC) [Mass/Vol] 33.0 g/dL 32-36 [facility] No Panel InformationOrdered By: Shirley Wood on 09-10-2022 Estimated GFR (MDRD) Amer 73 mL/min >60 [facility] Comment on above: GFR Calc Estimated GFR (MDRD) Non-Af Amer 60 mL/min >60 [facility] Comment on above: Non- GFR Calc Prostate Specific Antigen Total 0.77 ng/mL 0.0-4.0 [facility] Comment on above: This test was perfor med using the TPSA assay method for the[employer] chemistry system. Values obtained with differentassay methods cannot be used interchangably.When changing PSA assays in the course of monitoring apatient, additional sequential testing should be carriedout to confirm baseline values. Thyroid Stimulating Hormone (TSH) 3.20 uIU/mL 0.358-3.74 [facility] Platelets bldOrdered By: Sandeep Wood on 09-10-2022 Platelets (Bld) [#/Vol] 179 10*3/uL 150-450 [facility] Serum or plasma albumin shakeel urement (mass/volume)Ordered By: Shirley Wood on 09-10-2022 Albumin [Mass/Vol] 3.9 g/dL 3.2-5.0 [facility] Serum or plasma albumin/glob ulin mass ratioOrdered By: Shirley Wood on 09-10-2022 Albumin/Globulin [Mass ratio] 1.1 {ratio} 0.9-2.4 [facility] Serum or plasma calcium shakeel urement (mass/volume)Ordered By: Shirley Wood on 09-10-2022 Calcium [Mass/Vol] 9.9 mg/dL 8.5-10.1 [facility] Serum or plasma cholesterol in HDL measurement (mass/volume)Ordered By: Shirley Wood on 09-10-2022 Cholesterol in HDL [Mass/Vol] 38 mg/dL >40 [facility] Comment on above: The drugs N-Acetylcy steine and Metamizole may falsely depress this assay. Reference Range HDL <40 mg/dL Low HDL Cholesterol HDL >or= 60 mg/dL High HDL Cholesterol Serum or plasma cholesterol in VLDL measurement (mass/volume)Ordered By: Shirley Wood on 09-10-2022 Cholesterol in VLDL [Mass/Vol] 18 mg/dL 5-40 [facility] Serum or plasma creatinine m easurement (mass/volume)Ordered By: Shirley Wood on 09-10-2022 Creatinine [Mass/Vol] 1.23 mg/dL 0.70-1.30 [facility] Comment on above: The validity of the calculated GFR & GFRAA in patients over 70 years has not been determined. Clinical correlation is essential. Serum or plasma low density lipoprotein (LDL) cholesterol measurement (mass/volume)Ordered By: Shirley Wood on 09-10-2022 Cholesterol in LDL [Mass/Vol] 116 mg/dL 0-130 [facility] Serum or plasma urea nitroge n measurement (mass/volume)Ordered By: Shirley Wood on 09-10-2022 Urea nitrogen [Mass/Vol] 24 mg/dL 7-18 [facility] Thin prep Papanicolaou smear with manual screeningOrdered By: Shirley Wood on 09-10-2022 Thin prep Papanicolaou smear with manual screening 23 U/L 15-37 [facility] Thin prep Papanicolaou smear with manual screening 3 5-15 [facility] Whole blood hemoglobin A1c/t otal hemoglobin ratio (mass fraction)Ordered By: Shirley Wood on 09-10-2022 HbA1c (Bld) [Mass fraction] 5.6 % 3.8-5.6 [facility] Comment on above: Normal < 5.7 % Predi abetic 5.7 - 6.4 % Diabetic >or= 6.5 % Please note range changes. Absolute lymphocyte counton 10-22-2021 Lymphocytes Auto (Unsp spec) [#/Vol] 2.03 10*3/uL 0.83-4.51 [facility] Work Phone: Basophil percentageon 2021 Basophils/100 WBC (Bld) 0.4 % 0-1 [facility] Work Phone: Bilirubin [Mass/Vol] 0.80 mg/dL 0.20-1.00 [facility] Work Phone: Comment on above: For patients on eltr ombopag therapy, use of Dimension [place] TBIL is not recommended. Chloride [Moles/Vol] 103 mmol/L 98-107 [facility] Work Phone: Eosinophils/100 WBC (Bld) 1.1 % 0-5 [facility] Work Phone: Glucose [Mass/Vol] 101 mg/dL 74-106 [facility] Work Phone: Comment on above: Fasting Glucose resu lt from 100 to 125 mg/dL suggests IMPAIRED HOMEOSTASIS per A.D.A. criteria. Neutrophils (Bld) [#/Vol] 4.9 10*3/uL 2.0-7.7 [facility] Work Phone: Neutrophils/100 WBC (Bld) 64.3 % 47-70 [facility] Work Phone: Potassium [Moles/Vol] 3.7 mmol/L 3.5-5.1 [facility] Work Phone: Protein [Mass/Vol] 7.1 g/dL 6.4-8.2 [facility] Work Phone: Sodium [Moles/Vol] 135 mmol/L 136-145 [facility] Work Phone: Testosterone [Mass/Vol] 981.79 ng/dL [facility] Work Phone: Comment on above: CENTRAL 90% REFERENC E RANGES MALE AGE <50 197.44 - 669.58 ng/dL MALE AGE > or = 50 187.72 - 684.19 ng/dL FEMALE AGE <50 8.38 - 35.01 ng/dL FEMALE AGE > or = 50 <7.00 - 35.92 ng/dL Effective as of 12/12/20 WBC (Bld) [#/Vol] 7.6 10*3/uL 4.4-11.0 [facility] Work Phone: Blood erythrocytes count (nu mber/volume)on 10-22-2021 RBC (Bld) [#/Vol] 4.59 10*6/uL 4.6-6.2 [facility] Work Phone: Blood hemoglobin measurement (mass/volume)on 10-22-2021 Hemoglobin (Bld) [Mass/Vol] 14.5 g/dL 13.0-16.5 [facility] Work Phone: Blood lymphocytes/100 leukoc yteson 10-22-2021 Lymphocytes/100 WBC (Bld) 26.9 % 19-41 [facility] Work Phone: Blood monocytes/100 leukocyt eson 10-22-2021 Monocytes/100 WBC (Bld) 7.0 % 0-10 [facility] Work Phone: Blood platelet mean volumeon 10-22-2021 Platelet mean volume (Bld) [Entitic vol] 10.5 fL 6.2-12.0 [facility] Work Phone: Determination of erythrocyte mean corpuscular volume (MCV)on 10-22-2021 MCV (RBC) [Entitic vol] 94.1 fL 80-94 [facility] Work Phone: Hematocrit Auto (Bld) [Volum e fraction]on 10-22-2021 Hematocrit (Bld) [Volume fraction] 43.2 % 40-54 [facility] Work Phone: Laboratory - Chemistry and C hemistry - challengeon 10-22-2021 ALP [Catalytic activity/Vol] 97 U/L 45-117 [facility] Work Phone: ALT [Catalytic activity/Vol] 28 U/L 16-61 [facility] Work Phone: CO2 [Moles/Vol] 25.0 mmol/L 21.0-32.0 [facility] Work Phone: Globulin (S) [Mass/Vol] 3.3 g/dL 2.2-4.2 [facility] Work Phone: Urea nitrogen/Creatinine [Mass ratio] 19.4 mg/mg 10-20 [facility] Work Phone: Laboratory - Hematology and Cell countson 10-22-2021 Erythrocyte distribution width (RBC) [Entitic vol] 49.5 fL 35.1-43.9 [facility] Work Phone: Erythrocyte distribution width (RBC) [Ratio] 14.5 % 11.6-14.6 [facility] Work Phone: Immature granulocytes/100 WBC (Bld) 0.300 % 0.0-0.9 [facility] Work Phone: Comment on above: IG% - Immature Granu locytes (promyelocytes, myelocytes and metamyelocytes) > 1% indicates that a LEFT SHIFT is Present. MCH (RBC) [Entitic mass] 31.6 pg 27.0-32.0 [facility] Work Phone: Nucleated RBC/100 WBC (Bld) [Ratio] 0 % 0-5 [facility] Work Phone: MCHC Auto (RBC) [Mass/Vol]on 10-22-2021 MCHC (RBC) [Mass/Vol] 33.6 g/dL 32-36 [facility] Work Phone: No Panel Informationon 10-22 Estimated GFR (MDRD) Amer 63 mL/min >60 [facility] Work Phone: Comment on above: GFR Calc Estimated GFR (MDRD) Non-Af Amer 52 mL/min >60 [facility] Work Phone: Comment on above: Non- GFR Calc Prostate Specific Antigen Screen 0.84 ng/mL 0.00-4.00 [facility] Work Phone: Comment on above: This test was perfor med using the TPSA assay method for [employer] chemistry system. Values obtained with differentassay methods cannot be used interchangably.When changing PSA assays in the course of monitoring apatient, additional sequential testing should be carriedout to confirm baseline values. Thyroid Stimulating Hormone (TSH) 1.82 uIU/mL 0.358-3.74 [facility] Work Phone: Platelets bldon 10-22-2021 Platelets (Bld) [#/Vol] 174 10*3/uL 150-450 [facility] Work Phone: Serum or plasma albumin shakeel urement (mass/volume)on 10-22-2021 Albumin [Mass/Vol] 3.8 g/dL 3.2-5.0 [facility] Work Phone: Serum or plasma albumin/glob ulin mass ratioon 10-22-2021 Albumin/Globulin [Mass ratio] 1.2 {ratio} 0.9-2.4 [facility] Work Phone: Serum or plasma calcium shakeel urement (mass/volume)on 10-22-2021 Calcium [Mass/Vol] 9.9 mg/dL 8.5-10.1 [facility] Work Phone: Serum or plasma creatinine m easurement (mass/volume)on 10-22-2021 Creatinine [Mass/Vol] 1.39 mg/dL 0.70-1.30 [facility] Work Phone: Comment on above: The validity of the calculated GFR & GFRAA in patients over 70 years has not been determined. Clinical correlation is essential. Serum or plasma urea nitroge n measurement (mass/volume)on 10-22-2021 Urea nitrogen [Mass/Vol] 27 mg/dL 7-18 [facility] Work Phone: Serum or plasma uric acid me asurement (mass/volume)on 10-22-2021 Urate [Mass/Vol] 5.5 mg/dL 3.5-7.2 [facility] Work Phone: Comment on above: The drugs N-Acetylcy steine and Metamizole may falsely depress this assay. Thin prep Papanicolaou smear with manual screeningon 10-22-2021 Thin prep Papanicolaou smear with manual screening 27 U/L 15-37 [facility] Work Phone: Thin prep Papanicolaou smear with manual screening 7 5-15 [facility] Work Phone: Clinical Summary: Sarah Beth pradeep 09-03-2021 77 OP Visit Invalid Interpretation Code [facility] Work Phone: CNOVon 06-22-2019 CNOV Office Visit ([id number]) IMAN BARKER ([id number]) 1940 [address] [facility] Date Time Provider Department 06/22/19 8:30 AM MAGUE BLEVINS (NIKHIL) [id number] During your visit today, we recorded the following information about you: Pulse Blood pressure Weight Height 78/minute 122/86 90.7 kg 1.753 m Mague Blevins APRN.REGISTERED NURSE SUPERVISOR, REGISTERED NURSE SUPERVISOR 06/22/2019 9:16 AM Signed Subjective Opioid Risk Tool Opiod Risk Tool Date Completed 06/22/2019 HPI Iman Barker presents today for lumbar and foot pain. This is a chronic problem. The pain is at a severity of 1/10. Iman describes the pain as Aching. Pain is non-radiating. The pain is alleviated by resting and aggravated by regular daily ambulation. He has tried physical therapy and pain management. His lumbar pain has been stable. He still has foot pain. He is doing well with his gabapentin. He is needing refills on this. Review of Systems Eyes: Negative for blurred vision and double vision. Respiratory: Negative for shortness of breath. Cardiovascular: Negative for chest pain and leg swelling. Gastrointestinal: Negative for constipation, diarrhea, nausea and vomiting. Genitourinary: Negative for dysuria. Skin: Negative for itching. Neurological: Negative for dizziness, tingling, weakness and headaches. Endo/Heme/Allergies: Bruises/bleeds easily. Psychiatric/Behavior al: Negative for depression and suicidal ideas. The patient is not nervous/anxious. PAST MEDICAL HISTORY Diagnosis Date - BPH (benign prostatic hyperplasia) - CAD (coronary artery disease) - Displacement of lumbar intervertebral disc without myelopathy - Diverticulitis - Gout - Hypertension - Neuropathic pain - Obesity - Spinal stenosis of lumbar region - Venous insufficiency PAST SURGICAL HISTORY Procedure Laterality Date - ENDOVENOUS LASER, 1ST VEIN Left 03/11/2019 left-03/11/19 - PAST SURGICAL HISTORY OF cartilage and veins removal - PAST SURGICAL HISTORY OF vein ligation x 2 - ROTATOR CUFF REPAIR 11/30/2018 - STAB PHLEBECTOMY VV (AG) Bilateral 03/29/2019 04/20/19 rt-03/29/19 lt-04/20/19 - TOTAL KNEE REPLACEMENT Right FAMILY HISTORY Problem Relation Age of Onset - Prostate Cancer Father Social History Tobacco Use - Smoking status: Never Smoker - Smokeless tobacco: Never Used Substance Use Topics - Alcohol use: Yes Comment: 3 beers yearly - Drug use: No Current Meds gabapentin (NEURONTIN) 300 mg capsule take 1 capsule every morning and 2 capsules at bedtime FOLIC ACID ORAL Take 1 mg by mouth. traZODone (DESYREL) 50 mg tablet Take 50 mg by mouth daily at bedtime. ACETAMINOPHEN ORAL Take by mouth. betamethasone dipropionate (DIPROSONE) 0.05 % cream diphenhydrAMINE-Acet aminophen (TYLENOL PM EXTRA STRENGTH) 25-500 mg tab Take by mouth. allopurinol (ZYLOPRIM) 100 mg tablet twice daily. tamsulosin ER (FLOMAX) 0.4 mg cp24 Take 0.4 mg by mouth once daily. ANDROGEL 20.25 mg/1.25 gram (1.62 %) glpm Apply 2 pumps to affected area as needed. Valsartan-Hydrochlor othiazide 320-25 mg per tablet Take 1 tablet by mouth once daily. diphenhydrAMINE (BENADRYL) 50 mg capsule Take 50 mg by mouth daily at bedtime. ixmbdnoi-kwi-ZV-K-ly copene 400-20-370 mcg tab Take by mouth. Cholecalciferol, Vitamin D3, 5,000 unit tab Take 5,000 Units by mouth once daily. Objective BP 122/86 Pulse 78 Ht 175.3 cm (5' 9) Wt 90.7 kg (200 lb) BMI 29.53 kg/m? Physical Exam Constitutional: He is well-developed, well-nourished, and in no distress. HENT: Head: Normocephalic and atraumatic. Neck: Normal range of motion. Pulmonary/Chest: Effort normal. Abdominal: Normal appearance. Musculoskeletal: Lumbar back: He exhibits decreased range of motion. Neurological: He is alert. He displays no weakness. A sensory deficit (BL lower extremity) is present. He has a normal Straight Leg Raise Test. Gait normal. Gait normal. Skin: Skin is dry and intact. Psychiatric: Mood, memory, affect and judgment normal. Assessment/Plan 1. Other chronic pain OARRs was completed and is consistent with current reported medications. I will refill his gabapentin. He is stable on this current dosing. Follow up 4 months. - gabapentin (NEURONTIN) 300 mg capsule; take 1 capsule every morning and 2 capsules at bedtime Dispense: 90 capsule; Refill: 3 2. Hereditary and idiopathic peripheral neuropathy 3. Displacement of lumbar intervertebral disc without myelopathy Mague Blevins APRN.[facility] Referring Provider: MAGUE BLEVINS ([facility]) [[id number]] Allergies As of Date: 06/22/2019 Noted Allergy Reaction SULFA (SULFONAMIDE ANTIBIOTICS) 07/19/2015 2 - Rash 4 - Hives Date Reviewed: 06/22/2019 Reviewed by: Edilma Oh MA - Fully Assessed Reason for Visit: Follow Up [171] Cmt: Toe Pain Primary Visit Diagnosis:Other chronic pain [G89.29] Other Visit Diagnoses:Hereditary and idiopathic peripheral neuropathy [G60.9] Displacement of lumbar intervertebral disc without myelopathy [M51.26] Order(s):gabapentin (NEURONTIN) 300 mg capsuletake 1 capsule every morning and 2 capsules at bedtimeDisp: 90 capsuleRfl: 3 Prescriptions as of 06/22/2019 Sig: GABAPENTIN 300 MG CAPSULE take 1 capsule every morning * FOLIC ACID ORAL Take 1 mg by [...] 50 mg by mouth daily at * TOABDAUXFELK-[id number]-[id number] IC ACID-V* Take by mouth. 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 Encounter Status:Closed by MAGUE BLEVINS CNP on 06/22/19 Normal [facility] PROGRESSon 06-22-2019 PROGRESS HNO ID: [id number] Author: Mague (Nikhil) NIKHIL Blevins Service: ? Author Type: Nurse Practitioner Type: Progress Notes Filed: 06/22/2019 9:16 AM Note Text: Subjective Opioid Risk Tool Opiod Risk Tool Date Completed 06/22/2019 HPI Iman Barker presents today for lumbar and foot pain. This is a chronic problem. The pain is at a severity of 1/10. Iman describes the pain as Aching. Pain is non-radiating. The pain is alleviated by resting and aggravated by regular daily ambulation. He has tried physical therapy and pain management. His lumbar pain has been stable. He still has foot pain. He is doing well with his gabapentin. He is needing refills on this. Review of Systems Eyes: Negative for blurred vision and double vision. Respiratory: Negative for shortness of breath. Cardiovascular: Negative for chest pain and leg swelling. Gastrointestinal: Negative for constipation, diarrhea, nausea and vomiting. Genitourinary: Negative for dysuria. Skin: Negative for itching. Neurological: Negative for dizziness, tingling, weakness and headaches. Endo/Heme/Allergies: Bruises/bleeds easily. Psychiatric/Behavior al: Negative for depression and suicidal ideas. The patient is not nervous/anxious. PAST MEDICAL HISTORY Diagnosis Date - BPH (benign prostatic hyperplasia) - CAD (coronary artery disease) - Displacement of lumbar intervertebral disc without myelopathy - Diverticulitis - Gout - Hypertension - Neuropathic pain - Obesity - Spinal stenosis of lumbar region - Venous insufficiency PAST SURGICAL HISTORY Procedure Laterality Date - ENDOVENOUS LASER, 1ST VEIN Left 03/11/2019 left-03/11/19 - PAST SURGICAL HISTORY OF cartilage and veins removal - PAST SURGICAL HISTORY OF vein ligation x 2 - ROTATOR CUFF REPAIR 11/30/2018 - STAB PHLEBECTOMY VV (AG) Bilateral 03/29/2019 04/20/19 rt-03/29/19 lt-04/20/19 - TOTAL KNEE REPLACEMENT Right FAMILY HISTORY Problem Relation Age of Onset - Prostate Cancer Father Social History Tobacco Use - Smoking status: Never Smoker - Smokeless tobacco: Never Used Substance Use Topics - Alcohol use: Yes Comment: 3 beers yearly - Drug use: No Current Meds gabapentin (NEURONTIN) 300 mg capsule take 1 capsule every morning and 2 capsules at bedtime FOLIC ACID ORAL Take 1 mg by mouth. traZODone (DESYREL) 50 mg tablet Take 50 mg by mouth daily at bedtime. ACETAMINOPHEN ORAL Take by mouth. betamethasone dipropionate (DIPROSONE) 0.05 % cream diphenhydrAMINE-Acet aminophen (TYLENOL PM EXTRA STRENGTH) 25-500 mg tab Take by mouth. allopurinol (ZYLOPRIM) 100 mg tablet twice daily. tamsulosin ER (FLOMAX) 0.4 mg cp24 Take 0.4 mg by mouth once daily. ANDROGEL 20.25 mg/1.25 gram (1.62 %) glpm Apply 2 pumps to affected area as needed. Valsartan-Hydrochlor othiazide 320-25 mg per tablet Take 1 tablet by mouth once daily. diphenhydrAMINE (BENADRYL) 50 mg capsule Take 50 mg by mouth daily at bedtime. ijqwpkld-jiz-SQ-K-ly copene 400-20-370 mcg tab Take by mouth. Cholecalciferol, Vitamin D3, 5,000 unit tab Take 5,000 Units by mouth once daily. Objective BP 122/86 Pulse 78 Ht 175.3 cm (5' 9) Wt 90.7 kg (200 lb) BMI 29.53 kg/m? Physical Exam Constitutional: He is well-developed, well-nourished, and in no distress. HENT: Head: Normocephalic and atraumatic. Neck: Normal range of motion. Pulmonary/Chest: Effort normal. Abdominal: Normal appearance. Musculoskeletal: Lumbar back: He exhibits decreased range of motion. Neurological: He is alert. He displays no weakness. A sensory deficit (BL lower extremity) is present. He has a normal Straight Leg Raise Test. Gait normal. Gait normal. Skin: Skin is dry and intact. Psychiatric: Mood, memory, affect and judgment normal. Assessment/Plan 1. Other chronic pain OARRs was completed and is consistent with current reported medications. I will refill his gabapentin. He is stable on this current dosing. Follow up 4 months. - gabapentin (NEURONTIN) 300 mg capsule; take 1 capsule every morning and 2 capsules at bedtime Dispense: 90 capsule; Refill: 3 2. Hereditary and idiopathic peripheral neuropathy 3. Displacement of lumbar intervertebral disc without myelopathy Mague Blevins APRN.REGISTERED NURSE SUPERVISOR [facility] CNOVon 05-06-2019 CNOV Office Visit (MERRY) IMAN BARKER ([id number]) 1940 M [facility] Date Time Provider Department 05/06/19 11:15 AM SHEILA ROJAS During your visit today, we recorded the following information about you: Jayleen Orantes RDMS, REHANA 05/06/2019 11:22 AM Signed Patient is here today for a post peft phlebectomy. Patient denies swelling. Patient has tenderness if pressed on lateral thigh. Patient wears compression stockings. Patient healing well. Jayleen Orantes RDMS, RVT Sheila Rojas MD 05/06/2019 12:20 PM Signed POST PROCEDURAL FOLLOW UP REFLECTIONS ROSS EVALUATION (This was a 10 minute office visit) 05/06/2019 Primary Care Physician: Maryjo Ford MD CLINICAL INDICATION/HISTORY: The patient is a 78 year old male with a history of severe bilateral lower extremity venous insufficiency with stasis dermatitis and a history of bleeding from varicosities. He is recently status post left leg phlebectomy which was extensive on April 20. Prior to that he was known to have had phlebectomy extensively again on the right side/leg on March 29 and prior to that had endovascular laser ablation on March 11 to the greater saphenous vein on the left. This is a follow-up appointment after the last phlebectomy on the left. Overall he is feeling pretty good. Energy levels are good. He doesn't complain of any wound issues. We did go over the legs were he has a multitude of lumps and bumps in the phlebectomy my areas in both legs. These are all Meissen stable and represent either isolated segments of vein that are thrombosed or actually areas of seroma/hematoma where segments of actually been removed. Either way there is no evidence of infection. There is no drainage from any these regions or cellulitis over any of these areas. He knows it is going to take more months for a lot of these to go away especially considering the number of regions that had to be treated with phlebectomy. My impression that this will go on and improve quite a bit. I find no other major varicosities that we missed. He has a few spider veins and larger reticular veins but these are all pretty stable and don't bother him. FOCUSED PHYSICAL EXAM: Varicose Veins: None visible in either leg at this point Reticular veins/venulectasias/ spider veins: Yes Swelling: Minimal. No significant pretibial edema or edema at the ankle level. Swelling is primarily focal areas still around the puncture sites from phlebectomy. Hyperpigmentation: Yes, chronic Stasis dermatitis: Yes, chronic Ulceration: No RESULTS OF ULTRASOUND: Not performed after phlebectomy. IMPRESSION: Successful multistage venous therapy to both legs has been completed without complication. Results early appear to be very good. RECOMMENDATION: Recommending ongoing use of knee-high stockings as much as possible. This should help hopefully resolve some of the lower extremity hyperpigmentation if we can protect him from further venous insufficiency developing below the knee. Follow-up in our office for any complications at still might arise after the above procedures or if he has any issues where significant changes in his legs arise. Sheila Rojas MD Referring Provider: SELF [200] Allergies As of Date: 05/06/2019 Noted Allergy Reaction SULFA (SULFONAMIDE ANTIBIOTICS) 07/19/2015 2 - Rash 4 - Hives Date Reviewed: 05/06/2019 Reviewed by: Sheila Rojas - Fully Assessed Reason for Visit: Varicose Veins Post Op [956] Primary Visit Diagnosis:Varicose veins of both lower extremities with pain [I83.813] Other Visit Diagnoses:Venous insufficiency (chronic) (peripheral) [I87.2] Hemorrhage of varicose veins of lower extremity, unspecified laterality [I83.899] Prescriptions as of 05/06/2019 Sig: LORAZEPAM 1 MG TABLET Take one tablet one hour prio* HYDROCODONE 5 MG-ACETAMINOPHE* Take one tablet one hour prio* GABAPENTIN 300 MG CAPSULE take 1 capsule every morning * FOLIC ACID ORAL Take 1 mg by [...] 50 mg by mouth daily at * [id number] IC ACID-V* Take by mouth. 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 Patient denies swelling. Patient has tenderness if pressed on lateral thigh. Patient wears compression stockings. Patient healing well. Jayleen Orantes RDMS, RVT Disposition: Return if symptoms worsen or fail to improve. Follow-up and Disposition History Recorded Letter Text Encounter Status:Closed by SHEILA ROJAS MD on 05/06/19 [facility] PROGRESSon 12-19-2019 PROGRESS HNO ID: [id number] Author: Sheila Rojas Service: ? Author Type: Physician Type: Progress Notes Filed: 05/06/2019 12:20 PM Note Text: POST PROCEDURAL FOLLOW UP REFLECTIONS ROSS EVALUATION (This was a 10 minute office visit) 05/06/2019 Primary Care Physician: Maryjo Ford MD CLINICAL INDICATION/HISTORY: The patient is a 78 year old male with a history of severe bilateral lower extremity venous insufficiency with stasis dermatitis and a history of bleeding from varicosities. He is recently status post left leg phlebectomy which was extensive on April 20. Prior to that he was known to have had phlebectomy extensively again on the right side/leg on March 29 and prior to that had endovascular laser ablation on March 11 to the greater saphenous vein on the left. This is a follow-up appointment after the last phlebectomy on the left. Overall he is feeling pretty good. Energy levels are good. He doesn't complain of any wound issues. We did go over the legs were he has a multitude of lumps and bumps in the phlebectomy my areas in both legs. These are all Meissen stable and represent either isolated segments of vein that are thrombosed or actually areas of seroma/hematoma where segments of actually been removed. Either way there is no evidence of infection. There is no drainage from any these regions or cellulitis over any of these areas. He knows it is going to take more months for a lot of these to go away especially considering the number of regions that had to be treated with phlebectomy. My impression that this will go on and improve quite a bit. I find no other major varicosities that we missed. He has a few spider veins and larger reticular veins but these are all pretty stable and don't bother him. FOCUSED PHYSICAL EXAM: Varicose Veins: None visible in either leg at this point Reticular veins/venulectasias/ spider veins: Yes Swelling: Minimal. No significant pretibial edema or edema at the ankle level. Swelling is primarily focal areas still around the puncture sites from phlebectomy. Hyperpigmentation: Yes, chronic Stasis dermatitis: Yes, chronic Ulceration: No RESULTS OF ULTRASOUND: Not performed after phlebectomy. IMPRESSION: Successful multistage venous therapy to both legs has been completed without complication. Results early appear to be very good. RECOMMENDATION: Recommending ongoing use of knee-high stockings as much as possible. This should help hopefully resolve some of the lower extremity hyperpigmentation if we can protect him from further venous insufficiency developing below the knee. Follow-up in our office for any complications at still might arise after the above procedures or if he has any issues where significant changes in his legs arise. Sheila Rojas MD [facility] CNOVon 04-20-2019 [facility] Office Visit (MERRY) IMAN BARKER ([id number]) 1940 M [facility] Date Time Provider Department 04/20/19 1:00 PM SHEILA ROJAS During your visit today, we recorded the following information about you: Referring Provider: SELF [[id number]] Allergies As of Date: 04/20/2019 Noted Allergy Reaction SULFA (SULFONAMIDE ANTIBIOTICS) 07/19/2015 2 - Rash 4 - Hives Date Reviewed: 04/14/2019 Reviewed by: Sheila Rojas - Fully Assessed Reason for Visit: Varicose Veins [965] Leg Edema [769] Venous Insufficiency [609] Primary Visit Diagnosis:Varicose veins of both lower extremities with pain [I83.813] Other Visit Diagnosis:Venous insufficiency (chronic) (peripheral) [I87.2] Order(s):lidocaine 500 mg, EPINEPHrine 0.5 mg, sodium bicarbonate 50 mEq in NaCl 0.9% 500 mL solution (TUMESCENT)Disp: Rfl: Prescriptions as of 04/20/2019 Sig: IBUPROFEN 600 MG TABLET Take 1 tablet by mouth three * LORAZEPAM 1 MG TABLET Take one tablet one hour prio* HYDROCODONE 5 MG-ACETAMINOPHE* Take one tablet one hour prio* GABAPENTIN 300 MG CAPSULE take 1 capsule every morning * FOLIC ACID ORAL Take 1 mg by [...] 50 mg by mouth daily at * [id number] IC ACID-V* Take by mouth. 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] 05/13/2017 Prescriptions ordered this encounter Disp Refills Start End LIDOCAINE 2%-EPINEPHRINE 1 MG/ML-SOD* 04/20/2019 04/21/2019 Route: SUBCUTANEOUS Encounter Status:Closed by SHEILA ROJAS MD on 04/20/19 [facility] US STB PHLEBECTOMY VV 20 + I NCNon 04-20-2019 US STB PHLEBECTOMY VV 20 + INCN * * *Final Report* * * DATE OF EXAM: Apr 20 2019 2:46PM A5U 2063 - US STB PHLEBECTOMY VV 20 + INCN / PROCEDURE REASON: left leg varicose veins * * * * Physician Interpretation * * * * EXAM TITLE: AMBULATORY PHLEBECTOMY OF THE left LOWER EXTREMITY DATE: 04/20/2019 PRIMARY CARE PHYSICIAN: Dr. Maryjo Ford HEARING AID DISPENSER: Dr. Rojas ANAESTHESIA: Tumescent anaesthesia. CLINICAL INDICATION/HISTORY: The patient is a 78 -year-old male with symptomatic varicosities fed by junctionly refluxing left greater saphenous vein. The patient underwent successful endovenous laser ablation and continues to have residual symptomatic varicosities. PROCEDURE: Informed consent was obtained from the patient. In an erect position the veins were marked with the aid of a vein lamp. The patient was orally sedated. The patient was placed in a Supine position and the left leg was prepped and draped in a sterile fashion. All elements of maximal barrier technique including mask, sterile gown, sterile gloves, large sterile drape, appropriate hand hygiene, and appropriate prep agent were utilized. Tumescent anesthesia was infused subcutaneously throughout the areas to undergo lumpectomy. Stab wounds with a blood drawing needle were made and micropuncture phlebectomy was performed at each site. Phlebectomy sites were bandaged and compression stocking was applied. There were no apparent complications. The patient was given home-going instructions. The patient will followup in 4 weeks. FINDINGS: greater than twenty stab wounds were made and underlying varicosities were successfully phlebectomized. IMPRESSION: Technically successful ambulatory phlebectomy of the left leg. Manager Payroll: PSCB Transcribe Date/Time: Apr 24 2019 2:15P Dictated by : SHEILA ROJAS MD This examination was interpreted and the report reviewed and electronically signed by: SHEILA ROJAS MD on Apr 24 2019 2:21PM [facility] 04-14-2019 [facility] Office Visit (MERRY) IMAN BARKER ([id number]) 1940 M [facility] Date Time Provider Department 04/14/19 10:00 AM SHEILA ROJAS During your visit today, we recorded the following information about you: Paulette Billy RDMS, RVT 04/14/2019 10:10 AM Signed Patient is post RT AP. Leg is healing well. Patient had a lot of pain 1-2 days post op but is doing much better now. He is scheduled for LT AP on April 20. Paulette Billy RDMS, RVT Sheila Rojas MD 04/14/2019 10:22 AM Signed POST PROCEDURAL FOLLOW UP REFLECTIONS ROSS EVALUATION (This was a 10 minute office visit) 04/14/2019 Primary Care Physician: Maryjo Ford MD CLINICAL INDICATION/HISTORY: The patient is a 78 year old male with a history of bilateral lower extremity venous insufficiency with a history of some bleeding. He is recently status post right leg able toward phlebectomy on March 29 and comes in for follow-up. More remotely he also had a left leg endovascular laser ablation. Today's evaluation shows expected bruising and lumps and bumps on the right leg from the extensive phlebectomy. No evidence of infection and he's had no bleeding or drainage to speak of is the first day or so after the procedure. He is fairly happy with the results and has tentatively on for phlebectomy on the left side. There will be a change and then you away from the vein Center for procedures to interventional radiology that the patient's aware of. FOCUSED PHYSICAL EXAM: Varicose Veins: No visible varicosities in the right leg at this time. There certainly are lumps and bumps that are consistent with clotted veins or small hematomas these all appear to be doing well. Varicosities remaining visible in the left leg at the thigh and below-knee levels. Reticular veins/venulectasias/ spider veins: Yes Swelling: Swelling in the right leg is more adjacent to the areas of phlebectomy. Mild persistent swelling is chronic on the left side. Hyperpigmentation: Yes Stasis dermatitis: Yes Ulceration: No current active ulcerations in either leg. RESULTS OF ULTRASOUND: Was not performed. IMPRESSION: Successful right leg able toward phlebectomy with good early results. The left leg continues to have visible varicosities that have not decompressed after the endovascular ablation of the left greater saphenous vein. Phlebectomy is anticipated next week RECOMMENDATION: Pursue phlebectomy in the left leg within the next week or so to hopefully fully deal with the insufficiency of both legs. Sheila Rojas MD Referring Provider: SELF [200] Allergies As of Date: 04/14/2019 Noted Allergy Reaction SULFA (SULFONAMIDE ANTIBIOTICS) 07/19/2015 2 - Rash 4 - Hives Date Reviewed: 04/14/2019 Reviewed by: Sheila Rojas - Fully Assessed Reason for Visit: Varicose Veins Post Op [956] Primary Visit Diagnosis:Varicose veins of both lower extremities with pain [I83.813] Other Visit Diagnoses:Bleeding from varicose vein [I83.899] Venous insufficiency (chronic) (peripheral) [I87.2] Order(s):ibuprofen (MOTRIN) 600 mg tabletTake 1 tablet by mouth three times daily with meals for 14 days.Disp: 42 tabletRfl: 0 LORazepam (ATIVAN) 1 mg tabletTake one tablet one hour prior to scheduled procedure.Disp: 1 tabletRfl: 0 HYDROcodone-acetamin ophen (NORCO) 5-325 mg per tabletTake one tablet one hour prior to scheduled procedure.Disp: 1 tabletRfl: 0 Prescriptions as of 04/14/2019 Sig: GABAPENTIN 300 MG CAPSULE take 1 capsule every morning * FOLIC ACID ORAL Take 1 mg by [...] 50 mg by mouth daily at * [id number] IC ACID-V* Take by mouth. 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 Leg is healing well. Patient had a lot of pain 1-2 days post op but is doing much better now. He is scheduled for LT AP on April 20. Paulette Billy, RDMS, RVT Prescriptions ordered this encounter Disp Refills Start End IBUPROFEN 600 MG TABLET 42 t* 0 04/14/2019 04/28/2019 Route: ORAL Sig: Take 1 tablet by mouth three times daily with meals for 14 days. LORAZEPAM 1 MG TABLET 1 ta* 0 04/14/2019 05/14/2019 Class: Print RX Sig: Take one tablet one hour prior to scheduled procedure. HYDROCODONE 5 MG-ACETAMINOPHEN 325 M* 1 ta* 0 04/14/2019 05/14/2019 Class: Print RX Sig: Take one tablet one hour prior to scheduled procedure. Medications Discontinued During This Encounter ibuprofen (MOTRIN) 600 mg tablet 42 t* 0 02/25/2019 04/14/2019 Class: Print RX Sig: Take 1 tablet po TID x 14 days. Begin after procedure Disc: Course of therapy completed IBUPROFEN ORAL 04/14/2019 Class: Historical Med Route: ORAL Sig: Take by mouth. Disc: Course of therapy completed Disposition: Return in about 1 week (around 04/21/2019) for Phlebectomy on left leg. Follow-up and Disposition History Recorded Encounter Status:Closed by SHEILA ROJAS MD on 04/14/19 [facility] PROGRESSon 04-14-2019 PROGRESS HNO ID: [id number] Author: Sheila Rojas Service: ? Author Type: Physician Type: Progress Notes Filed: 04/14/2019 10:22 AM Note Text: POST PROCEDURAL FOLLOW UP REFLECTIONS ROSS EVALUATION (This was a 10 minute office visit) 04/14/2019 Primary Care Physician: Maryjo Ford MD CLINICAL INDICATION/HISTORY: The patient is a 78 year old male with a history of bilateral lower extremity venous insufficiency with a history of some bleeding. He is recently status post right leg able toward phlebectomy on March 29 and comes in for follow-up. More remotely he also had a left leg endovascular laser ablation. Today's evaluation shows expected bruising and lumps and bumps on the right leg from the extensive phlebectomy. No evidence of infection and he's had no bleeding or drainage to speak of is the first day or so after the procedure. He is fairly happy with the results and has tentatively on for phlebectomy on the left side. There will be a change and then you away from the vein Center for procedures to interventional radiology that the patient's aware of. FOCUSED PHYSICAL EXAM: Varicose Veins: No visible varicosities in the right leg at this time. There certainly are lumps and bumps that are consistent with clotted veins or small hematomas these all appear to be doing well. Varicosities remaining visible in the left leg at the thigh and below-knee levels. Reticular veins/venulectasias/ spider veins: Yes Swelling: Swelling in the right leg is more adjacent to the areas of phlebectomy. Mild persistent swelling is chronic on the left side. Hyperpigmentation: Yes Stasis dermatitis: Yes Ulceration: No current active ulcerations in either leg. RESULTS OF ULTRASOUND: Was not performed. IMPRESSION: Successful right leg able toward phlebectomy with good early results. The left leg continues to have visible varicosities that have not decompressed after the endovascular ablation of the left greater saphenous vein. Phlebectomy is anticipated next week RECOMMENDATION: Pursue phlebectomy in the left leg within the next week or so to hopefully fully deal with the insufficiency of both legs. Sheila Rojas MD [facility] CNOVon 03-29-2019 [facility] Office Visit (AGCARDVEIN) IMAN BARKER ([id number]) 1940 M [place] Date Time Provider Department 03/29/19 1:00 PM SHEILA ROJAS During your visit today, we recorded the following information about you: Referring Provider: SELF [200] Allergies As of Date: 03/29/2019 Noted Allergy Reaction SULFA (SULFONAMIDE ANTIBIOTICS) 07/19/2015 2 - Rash 4 - Hives Date Reviewed: 03/29/2019 Reviewed by: Sheila Rojas - Fully Assessed Reason for Visit: Varicose Veins [965] Venous Insufficiency [609] Primary Visit Diagnosis:Varicose veins of both lower extremities with pain [I83.813] Other Visit Diagnosis:Venous insufficiency (chronic) (peripheral) [I87.2] Order(s):lidocaine 500 mg, EPINEPHrine 0.5 mg, sodium bicarbonate 50 mEq in NaCl 0.9% 500 mL solution (TUMESCENT)Disp: Rfl: Prescriptions as of 03/29/2019 Sig: IBUPROFEN 600 MG TABLET Take 1 tablet by mouth three * IBUPROFEN 600 MG TABLET Take 1 tablet po TID x 14 day* GABAPENTIN 300 MG CAPSULE take 1 capsule every morning * IBUPROFEN ORAL Take by mouth. FOLIC ACID ORAL Take 1 mg by [...] 50 mg by mouth daily at * [id number]-CWV IC ACID-V* Take by mouth. 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] 05/13/2017 Prescriptions ordered this encounter Disp Refills Start End LIDOCAINE 2%-EPINEPHRINE 1 MG/ML-SOD* 03/29/2019 03/30/2019 Route: SUBCUTANEOUS Encounter Status:Closed by SHEILA ROJAS MD on 03/29/19 [facility] US STB PHLEBECTOMY VV 20 + I NCNon 03-29-2019 US STB PHLEBECTOMY VV 20 + INCN * * *Final Report* * * DATE OF EXAM: Mar 29 2019 2:51PM A5U 2063 - US STB PHLEBECTOMY VV 20 + INCN / PROCEDURE REASON: right leg phlebectomy * * * * Physician Interpretation * * * * EXAM TITLE: AMBULATORY PHLEBECTOMY OF THE RIGHT LOWER EXTREMITY DATE: 03/29/2019 PRIMARY CARE PHYSICIAN: Dr. Maryjo Ford HEARING AID DISPENSER: Dr. Rojas ANAESTHESIA: Tumescent anaesthesia. CLINICAL INDICATION/HISTORY: The patient is a 78 -year-old male with symptomatic varicosities fed by primary varicosities that are diffuse in the thigh and calf area on the right leg. The patient had no other therapies on the right leg prior to this since is greater saphenous vein was no longer present. PROCEDURE: Informed consent was obtained from the patient. In an erect position the veins were marked with the aid of a vein lamp. The patient was orally sedated. The patient was placed in a supine and then prone position and the right leg was prepped and draped in a sterile fashion. All elements of maximal barrier technique including mask, sterile gown, sterile gloves, large sterile drape, appropriate hand hygiene, and appropriate prep agent were utilized. Tumescent anesthesia was infused subcutaneously throughout the areas to undergo lumpectomy. Stab wounds with a blood drawing needle were made and micropuncture phlebectomy was performed at each site. Phlebectomy sites were bandaged and compression stocking was applied. There were no apparent complications. The patient was given home-going instructions. The patient will followup in 4 weeks. FINDINGS: greater than twenty stab wounds were made and underlying varicosities were successfully phlebectomized. IMPRESSION: Technically successful ambulatory phlebectomy of the right leg. Manager Payroll: NNAMDI Transcribe Date/Time: Mar 29 2019 4:14P Dictated by : SHEILA ROJAS MD This examination was interpreted and the report reviewed and electronically signed by: SHEILA ROJAS MD on Mar 29 2019 4:17PM [facility] (AGCARDVEIN[facility] IMAN BARKER ([id number]) 1940 M [facility] Date Time Provider Department 03/25/19 3:30 PM FLORIDALMA OROZCO During your visit today, we recorded the following information about you: Rosenda Mccann RVT, Tech 03/25/2019 4:01 PM Signed Patient is being seen today for his 2.5 week post-op of left gsv evlt. He states that his leg is feeling good today. He has been wearing his stocking as prescribed. Ultrasound demonstrates fibrotic occlusion of the left gsv from proximal thigh through to the insertion point at mid thigh. There are still patent varicosities noted in the medial thigh and calf distal to the ablated gsv segment. There is no evidence of reflux or dvt within the cfv at this time. REHANA Flores MD 03/25/2019 4:02 PM Signed Iman Barker is a 78 year old male who presents in follow up after EVLT on 03/11/19 The pt is doing well post surgery. They are following post op instructions. The incisions are healing well. Pt states he is doing well. MEDICATIONS: Current Outpatient Medications Medication Sig Dispense Refill - gabapentin (NEURONTIN) 300 mg capsule take 1 capsule every morning and 2 capsules at bedtime 90 capsule 3 - FOLIC ACID ORAL Take 1 mg by mouth. - traZODone (DESYREL) 50 mg tablet Take 50 mg by mouth daily at bedtime. - betamethasone dipropionate (DIPROSONE) 0.05 % cream - diphenhydrAMINE-Acet aminophen (TYLENOL PM EXTRA STRENGTH) 25-500 mg tab Take by mouth. - allopurinol (ZYLOPRIM) 100 mg tablet twice daily. - tamsulosin ER (FLOMAX) 0.4 mg cp24 Take 0.4 mg by mouth once daily. - ANDROGEL 20.25 mg/1.25 gram (1.62 %) glpm Apply 2 pumps to affected area as needed. - Valsartan-Hydrochlor othiazide 320-25 mg per tablet Take 1 tablet by mouth once daily. - diphenhydrAMINE (BENADRYL) 50 mg capsule Take 50 mg by mouth daily at bedtime. - ibuprofen (MOTRIN) 600 mg tablet Take 1 tablet po TID x 14 days. Begin after procedure 42 tablet 0 - IBUPROFEN ORAL Take by mouth. - ACETAMINOPHEN ORAL Take by mouth. - onlxrgcs-tdg-AT-K-ly copene 400-20-370 mcg tab Take by mouth. - Cholecalciferol, Vitamin D3, 5,000 unit tab Take 5,000 Units by mouth once daily. No current facility-administere d medications for this visit. ALLERGIES Allergen Reactions - Sulfa (Sulfonamide * Rash, Hives There were no vitals taken for this visit. PHYSICAL EXAM: PHYSICAL EXAMINATION: No evidence of skin paula Mild bruising still No evidence of DVT on US ASSESSMENT: S/p LLE EVLT PLAN: Doing well post op. Will proceed with L AP as scheduled. FOLLOW UP: No follow-ups on file. Floridalma Orozco MD Referring Provider: SELF [200] Allergies As of Date: 03/25/2019 Noted Allergy Reaction SULFA (SULFONAMIDE ANTIBIOTICS) 07/19/2015 2 - Rash 4 - Hives Date Reviewed: 03/25/2019 Reviewed by: Floridalma Orozco - Fully Assessed Reason for Visit: Varicose Veins Post Op [956] Cmt: 2.5 weeks post left gsv evlt Primary Visit Diagnosis:Varicose veins of both lower extremities with pain [I83.813] Order(s):ibuprofen (MOTRIN) 600 mg tabletTake 1 tablet by mouth three times daily for 14 days.Disp: 42 tabletRfl: 0 Prescriptions as of 03/25/2019 Sig: GABAPENTIN 300 MG CAPSULE take 1 capsule every morning * FOLIC ACID ORAL Take 1 mg by mouth. TRAZODONE 50 MG TABLET Take 50 mg by mouth daily at * BETAMETHASONE DIPROPIONATE 0.* DIPHENHYDRAMINE 25 MG-ACETAMI* Take by mouth. ALLOPURINOL 100 MG TABLET twice daily. TAMSULOSIN 0.4 MG CAPSULE Take 0.4 mg by mouth once tulio* ANDROGEL 20.25 MG/1.25 GRAM (* Apply 2 pumps to affected are* VALSARTAN 320 MG-HYDROCHLOROT* Take 1 tablet by mouth once d* DIPHENHYDRAMINE 50 MG CAPSULE Take 50 mg by mouth daily at * IBUPROFEN 600 MG TABLET Take 1 tablet by mouth three * IBUPROFEN 600 MG TABLET Take 1 tablet po TID x 14 day* IBUPROFEN ORAL Take by mouth. ACETAMINOPHEN ORAL Take by mouth. MHWVZFBDBAHR-GOO-IPS IC ACID-V* Take by mouth. 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 He states that his leg is feeling good today. He has been wearing his stocking as prescribed. Ultrasound demonstrates fibrotic occlusion of the left gsv from proximal thigh through to the insertion point at mid thigh. There are still patent varicosities noted in the medial thigh and calf distal to the ablated gsv segment. There is no evidence of reflux or dvt within the cfv at this time. Rosenda Mccann RVT Prescriptions ordered this encounter Disp Refills Start End IBUPROFEN 600 MG TABLET 42 t* 0 03/25/2019 04/08/2019 Class: Print RX Route: ORAL Sig: Take 1 tablet by mouth three times daily for 14 days. Disposition: Return for surgery. Follow-up and Disposition History Recorded Encounter Status:Closed by FLORIDALMA OROZCO MD on 03/25/19 [facility] PROGRESSon 03-25-2019 PROGRESS HNO ID: [id number] Author: Floridalma Orozco Service: ? Author Type: Physician Type: Progress Notes Filed: 03/25/2019 4:02 PM Note Text: Iman Barker is a 78 year old male who presents in follow up after EVLT on 03/11/19 The pt is doing well post surgery. They are following post op instructions. The incisions are healing well. Pt states he is doing well. MEDICATIONS: Current Outpatient Medications Medication Sig Dispense Refill - gabapentin (NEURONTIN) 300 mg capsule take 1 capsule every morning and 2 capsules at bedtime 90 capsule 3 - FOLIC ACID ORAL Take 1 mg by mouth. - traZODone (DESYREL) 50 mg tablet Take 50 mg by mouth daily at bedtime. - betamethasone dipropionate (DIPROSONE) 0.05 % cream - diphenhydrAMINE-Acet aminophen (TYLENOL PM EXTRA STRENGTH) 25-500 mg tab Take by mouth. - allopurinol (ZYLOPRIM) 100 mg tablet twice daily. - tamsulosin ER (FLOMAX) 0.4 mg cp24 Take 0.4 mg by mouth once daily. - ANDROGEL 20.25 mg/1.25 gram (1.62 %) glpm Apply 2 pumps to affected area as needed. - Valsartan-Hydrochlor othiazide 320-25 mg per tablet Take 1 tablet by mouth once daily. - diphenhydrAMINE (BENADRYL) 50 mg capsule Take 50 mg by mouth daily at bedtime. - ibuprofen (MOTRIN) 600 mg tablet Take 1 tablet po TID x 14 days. Begin after procedure 42 tablet 0 - IBUPROFEN ORAL Take by mouth. - ACETAMINOPHEN ORAL Take by mouth. - egehqwxc-cdw-HT-K-ly copene 400-20-370 mcg tab Take by mouth. - Cholecalciferol, Vitamin D3, 5,000 unit tab Take 5,000 Units by mouth once daily. No current facility-administere d medications for this visit. ALLERGIES Allergen Reactions - Sulfa (Sulfonamide * Rash, Hives There were no vitals taken for this visit. PHYSICAL EXAM: PHYSICAL EXAMINATION: No evidence of skin paula Mild bruising still No evidence of DVT on US ASSESSMENT: S/p LLE EVLT PLAN: Doing well post op. Will proceed with L AP as scheduled. FOLLOW UP: No follow-ups on file. Floridalma Orozco MD Normal [facility] US VEIN MAPPING LOWER LTon 1 05-25-2018 US VEIN MAPPING LOWER LT * * *Final Report* * * DATE OF EXAM: Mar 25 2019 4:08PM A5U 1079 - US VEIN MAPPING LOWER LT / PROCEDURE REASON: Venous insufficiency (chronic) (peripheral) * * * * Physician Interpretation * * * * Non-Invasive Vascular Laboratory [facility] Venous Valvular Incompetency Unilateral - Left Date of service/time: 03/25/2019 3:45:37 PM Name: MR. IMAN BARKER Date of : 1940 Age: 78 years Gender: M Clinical Indication Varicose veins and status post venous ablation. TECHNIQUE -------- A venous duplex ultrasound examination was performed, including grayscale imaging with compression maneuvers and color Doppler and spectral Doppler examination with augmentation maneuvers and response to respiration of the below mentioned veins. FINDINGS -------- LEFT SIDE Common femoral vein Doppler: normal flow. Compression: normal. IMPRESSION LEFT SIDE - DEEP VEINS Negative for acute deep vein thrombosis. LEFT SIDE - SUPERFICIAL VEINS Previous ablation of the great saphenous vein. Ultrasound demonstrates fibrotic occlusion of the left gsv from proximal thigh through to the insertion point at mid thigh. There are still patent varicosities noted in the medial thigh and calf distal to the ablated gsv segment. There is no evidence of reflux or dvt within the cfv at this time. Technologist: Rosenda Mccann RVT Ordering physician: FLORIDALMA OROZCO Interpreting physician: Floridalma Orozco MD Final RP Manager Payroll: MARTI Transcribe Date/Time: Mar 25 2019 3:45P Dictated by : FLORIDALMA OROZCO MD This examination was interpreted and the report reviewed and electronically signed by: FLORIDALMA OROZCO MD on Mar 27 2019 3:15PM [facility] 03-11-2019 [facility] Office Visit (AGCARDVEIN) IMAN BARKER ([id number]) 1940 [facility] Date Time Provider Department 03/11/19 1:45 PM SHEILA ROJAS AGCARDJG During your visit today, we recorded the following information about you: Referring Provider: SELF [200] Allergies As of Date: 03/11/2019 Noted Allergy Reaction SULFA (SULFONAMIDE ANTIBIOTICS) 07/19/2015 2 - Rash 4 - Hives Date Reviewed: 02/23/2019 Reviewed by: Edilma Oh MA - Fully Assessed Reason for Visit: Venous Insufficiency [609] Varicose Veins [965] Primary Visit Diagnosis:Venous insufficiency (chronic) (peripheral) [I87.2] Order(s):[] lidocaine 500 mg, EPINEPHrine 0.5 mg, sodium bicarbonate 50 mEq in NaCl 0.9% 500 mL solution (TUMESCENT)Disp: Rfl: Prescriptions as of 03/11/2019 Sig: LORAZEPAM 1 MG TABLET Take 1 tablet by mouth 1 hour* IBUPROFEN 600 MG TABLET Take 1 tablet po TID x 14 day* GABAPENTIN 300 MG CAPSULE take 1 capsule every morning * IBUPROFEN ORAL Take by mouth. FOLIC ACID ORAL Take 1 mg by [...] 50 mg by mouth daily at * TCWACOSBZHNV-QLV-ZEL IC ACID-V* Take by mouth. 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] INVALID FOR* Prescriptions ordered this encounter Disp Refills Start End LIDOCAINE 2%-EPINEPHRINE 1 MG/ML-SOD* 03/10/2019 03/11/2019 Route: SUBCUTANEOUS Encounter Status:Closed by SHEILA ROJAS MD on 03/11/19 [facility] US LSR ABLATION THERAPY 1ST VEINon 03-11-2019 LSR ABLATION THERAPY 1ST VEIN * * *Final Report* * * DATE OF EXAM: Mar 11 2019 3:09PM A5U 2056 - US LSR ABLATION THERAPY 1ST VEIN / PROCEDURE REASON: left gsv evlt * * * * Physician Interpretation * * * * EXAM TITLE: ENDOVENOUS LASER ABLATION OF THE left JUNCTIONAL REFLUXING GREATER SAPHENOUS VEIN DATE: 03/11/2019 PRIMARY CARE PHYSICIAN: Dr. Maryjo Ford HEARING AID DISPENSER: Dr. Rojas ANAESTHESIA: Tumescent anaesthesia. 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 PROCEDURE: Informed consent was obtained from the patient. The patient was placed in a Supine position and the left leg was prepped and draped in a sterile fashion. All elements of maximal barrier technique including mask, sterile gown, sterile gloves, large sterile drape, appropriate hand hygiene, and appropriate prep agent were utilized. Ultrasound identified an appropriate skin entrance site over the greater saphenous vein and this was anesthetized. Utilizing ultrasound guidance a micropuncture needle was directed into the vein. Utilizing guidewire exchange and Seldinger technique an introducing catheter was passed into the vein. A 600 ? laser fiber was positioned 1.8 centimeters beneath the left common femoral vein. Tumescent anesthesia was infused throughout the length of the catheter in the vascular sheath. Endovenous laser ablation was performed. Excess blood was expressed from the puncture site, the punctures site was Steri-Stripped and bandaged, and compression stocking was applied. There were no apparent complications. The patient was given home-going instructions. The patient will followup in 2 weeks. FINDINGS: Endovenous laser ablation was carried out with a power of 12 W over a distance of 17 cm delivering a total of 1400 J for a treatment dose of 82 J per centimeter. IMPRESSION: Technically successful endovenous laser ablation of the left greater saphenous vein. Manager Payroll[facility] Transcribe Date/Time: Mar 11 2019 3:17P Dictated by : SHEILA ROJAS MD This examination was interpreted and the report reviewed and electronically signed by: SHEILA ROJAS MD on Mar 11 2019 3:20PM [facility] 02-25-2019 NIKHIL Telephone (MERRY) IMAN BARKER ([id number]) 1940 M [facility] Date Time Provider Department 02/25/19 FLORIDALMA OROZCO During your visit today, we recorded the following information about you: Selina Heaton CMA 02/25/2019 8:35 AM Signed Please sign rx's for Bob patient for procedure 03/11/19 Selina Heaton [facility] Selina Heaton [facility] 02/25/2019 3:30 PM Signed February 25, 2019 3:29 PM Notified patient to chart picker rx's for procedure 03/11/19 Selina Heaton [facility] Selina Heaton [facility] 03/02/2019 10:02 AM Signed March 02, 2019 10:01 AM PATIENT PICKED UP RX'S FOR PROCEDURE. hydrocodone/acetamin ophen 5-325 mg 1 tablet ORAL ONCE, 1 tablet 1 hour prior to procedure lorazepam 1 mg Take 1 tablet by mouth 1 hour prior to procedure. ibuprofen 600 mg Tab, Take 1 tablet po TID x 14 days. 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 1 tablet 1 hour prior to procedureDisp: 1 tabletRfl: 0 ibuprofen (MOTRIN) 600 mg tabletTake 1 tablet po TID x 14 days. Begin after procedureDisp: 42 tabletRfl: 0 Prescriptions as of 02/25/2019 Sig: LORAZEPAM 1 MG TABLET Take 1 tablet by mouth 1 hour* HYDROCODONE 5 MG-ACETAMINOPHE* Take 1 tablet by mouth one ti* IBUPROFEN 600 MG TABLET Take 1 tablet po TID x 14 day* GABAPENTIN 300 MG CAPSULE take 1 capsule every morning * IBUPROFEN ORAL Take by mouth. FOLIC ACID ORAL Take 1 mg by [...] 50 mg by mouth daily at * UNFWNPANKFNC-VKX-YKF IC ACID-V* Take by mouth. 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 HYDROCODONE 5 MG-ACETAMINOPHEN 325 M* 1 ta* 0 02/25/2019 02/25/2019 Class: Print RX Route: ORAL Sig: Take 1 tablet by mouth one time only for 1 dose. 1 tablet 1 hour prior to procedure IBUPROFEN 600 MG TABLET 42 t* 0 02/25/2019 Class: Print RX Sig: Take 1 tablet po TID x 14 days. Begin after procedure Encounter Status:Closed by SELINA HEATON CMA on 02/25/19 [facility] [place] 02-23-2019 [facility] Office Visit (AGSPINE3) IMAN BARKER ([id number]) 1940 M [facility] Date Time Provider Department 02/23/19 3:15 PM MAGUE BLEVINS ([facility]) AGSPINE3 During your visit today, we recorded the following information about you: Pulse Blood pressure Weight Height 92/minute 127/73 90.7 kg 1.753 m Mague Blevins APRN.CNP, CNP 02/23/2019 3:46 PM Signed Subjective Patient is a 78 year old male presenting with back pain and foot pain. Back Pain This is a chronic problem. The problem has been gradually improving. The pain is present in the lumbar spine and sacro-iliac joint. The quality of the pain is described as aching. The pain radiates to the left thigh. The pain is at a severity of 2/10. The pain is mild. Exacerbated by: walking. Pertinent negatives include no chest pain, no headaches, no dysuria, no tingling and no weakness. He has tried NSAIDs and ice (PT) for the symptoms. The treatment provided moderate relief. Pain (foot) This is a chronic problem. The problem occurs constantly. The problem has been gradually worsening. The quality of the pain is described as aching and burning. The pain is at a severity of 3/10. The pain is mild. Pertinent negatives include no itching or tingling. The symptoms are aggravated by activity. He has tried oral narcotics, rest and NSAIDS for the symptoms. Shoulder Injury The incident occurred at home. The injury mechanism was a fall. The right shoulder is affected. The pain is at a severity of 7/10. The pain is moderate. The pain has been constant since onset. Pertinent negatives include no tingling. He is recovering from a rotator cuff surgery. He is in PT. He is doing well. He is needing refills on his gabapentin. Review of Systems Eyes: Negative for blurred vision and double vision. Respiratory: Negative for shortness of breath. Cardiovascular: Positive for leg swelling. Negative for chest pain. Gastrointestinal: Negative for constipation, diarrhea, nausea and vomiting. Genitourinary: Negative for dysuria. Musculoskeletal: Positive for back pain. Skin: Negative for itching. Neurological: Negative for dizziness, tingling, weakness and headaches. Endo/Heme/Allergies: Does not bruise/bleed easily. Psychiatric/Behavior al: Negative for depression and suicidal ideas. The patient is not nervous/anxious. PAST MEDICAL HISTORY Diagnosis Date - BPH (benign prostatic hyperplasia) - CAD (coronary artery disease) - Displacement of lumbar intervertebral disc without myelopathy - Diverticulitis - Gout - Hypertension - Neuropathic pain - Obesity - Spinal stenosis of lumbar region - Venous insufficiency PAST SURGICAL HISTORY Procedure Laterality Date - PAST SURGICAL HISTORY OF cartilage and veins removal - PAST SURGICAL HISTORY OF vein ligation x 2 - ROTATOR CUFF REPAIR 11/30/2018 - TOTAL KNEE REPLACEMENT Right FAMILY HISTORY Problem Relation Age of Onset - Prostate Cancer Father Social History Socioeconomic History Marital status: Spouse name: Not on file Number of children: Not on file Years of education: Not on file Highest education level: Not on file Occupational History Not on file Social Needs Financial resource strain: Not on file Food insecurity: Worry: Not on file Inability: Not on file Transportation needs: Medical: Not on file Non-medical: Not on file Tobacco Use Smoking status: Never Smoker Smokeless tobacco: Never Used Substance and Sexual Activity Alcohol use: Yes Comment: 3 beers yearly Drug use: No Sexual activity: Not on file Lifestyle Physical activity: Days per week: Not on file Minutes per session: Not on file Stress: Not on file Relationships Social connections: Talks on phone: Not on file Gets together: Not on file Attends christianity service: Not on file Active member of club or organization: Not on file Attends meetings of clubs or organizations: Not on file Relationship status: Not on file Intimate partner violence: Fear of current or ex partner: Not on file Emotionally abused: Not on file Physically abused: Not on file Forced sexual activity: Not on file Other Topics Concerns: Service: Not Asked Blood Transfusions: Not Asked Caffeine Concern: Yes 3 cups of coffee/soda per day Occupational Exposure: Not Asked Hobby Hazards: Not Asked Sleep Concern: Not Asked Stress Concern: Not Asked Weight Concern: Not Asked Special Diet: Yes regular; watches carbs Back Care: Not Asked Exercise: Yes walking Bike Helmet: Not Asked Seat Belt: Not Asked Self-Exams: Not Asked Social History Narrative Not on file Current Meds gabapentin (NEURONTIN) 300 mg capsule take 1 capsule every morning and 2 capsules at bedtime IBUPROFEN ORAL Take by mouth. FOLIC ACID ORAL Take 1 mg by mouth. traZODone (DESYREL) 50 mg tablet Take 50 mg by mouth daily at bedtime. ACETAMINOPHEN ORAL Take by mouth. betamethasone dipropionate (DIPROSONE) 0.05 % cream diphenhydrAMINE-Acet aminophen (TYLENOL PM EXTRA STRENGTH) 25-500 mg tab Take by mouth. allopurinol (ZYLOPRIM) 100 mg tablet twice daily. tamsulosin ER (FLOMAX) 0.4 mg cp24 Take 0.4 mg by mouth once daily. ANDROGEL 20.25 mg/1.25 gram (1.62 %) glpm Apply 2 pumps to affected area as needed. Valsartan-Hydrochlor othiazide 320-25 mg per tablet Take 1 tablet by mouth once daily. diphenhydrAMINE (BENADRYL) 50 mg capsule Take 50 mg by mouth daily at bedtime. lcrjyghs-awe-PD-K-ly copene 400-20-370 mcg tab Take by mouth. Cholecalciferol, Vitamin D3, 5,000 unit tab Take 5,000 Units by mouth once daily. Objective BP 127/73 Pulse 92 Ht 175.3 cm (5' 9) Wt 90.7 kg (200 lb) BMI 29.53 kg/m? Physical Exam Constitutional: He is oriented to person, place, and time and well-developed, well-nourished, and in no distress. HENT: Head: Normocephalic and atraumatic. Right Ear: Hearing normal. Left Ear: Hearing normal. Nose: No rhinorrhea. Eyes: Pupils are equal, round, and reactive to light. Cardiovascular: Normal rate, regular rhythm and normal heart sounds. Pulmonary/Chest: Effort normal and breath sounds normal. Abdominal: Normal appearance and bowel sounds are normal. Musculoskeletal: Right shoulder: He exhibits decreased range of motion, tenderness and pain. Left hip: He exhibits decreased range of motion and decreased strength. Tenderness: left hip bursa. Lumbar back: He exhibits decreased range of motion, tenderness (left SI joint), bony tenderness, pain and spasm. Right foot: There is decreased range of motion and bony tenderness. Left foot: There is decreased range of motion and tenderness. Neurological: He is alert and oriented to person, place, and time. He displays weakness (left lower extremity. knee: 4/5, ankle 4/5). A sensory deficit (left lower extremity. L4 distrubution) is present. Gait normal. Reflex Scores: Patellar reflexes are 2+ on the right side and 1+ on the left side. Achilles reflexes are 2+ on the right side and 2+ on the left side. Psychiatric: Mood, memory, affect and judgment normal. Assessment/Plan 1. Other chronic pain OARRs was completed and is consistent with current reported medications. I will refill his medications at the same dose. He is stable on these and they allow him to stay active. - gabapentin (NEURONTIN) 300 mg capsule; take 1 capsule every morning and 2 capsules at bedtime Dispense: 90 capsule; Refill: 3 2. Hereditary and idiopathic peripheral neuropathy 3. Displacement of lumbar intervertebral disc without myelopathy 4. S/P shoulder surgery Mague Blevins APRN.REGISTERED NURSE SUPERVISOR Referring Provider: MAGUE BLEVINS ([facility]) [[id number]] Allergies As of Date: 02/23/2019 Noted Allergy Reaction SULFA (SULFONAMIDE ANTIBIOTICS) 07/19/2015 2 - Rash 4 - Hives Date Reviewed: 02/23/2019 Reviewed by: Edilma Oh MA - Fully Assessed Reason for Visit: Rx Refills [128] Primary Visit Diagnosis:Hereditary and idiopathic peripheral neuropathy [G60.9] Other Visit Diagnoses:Other chronic pain [G89.29] Displacement of lumbar intervertebral disc without myelopathy [M51.26] S/P shoulder surgery [Z98.890] Order(s):gabapentin (NEURONTIN) 300 mg capsuletake 1 capsule every morning and 2 capsules at bedtimeDisp: 90 capsuleRfl: 3 Prescriptions as of 02/23/2019 Sig: GABAPENTIN 300 MG CAPSULE take 1 capsule every morning * IBUPROFEN ORAL Take by mouth. FOLIC ACID ORAL Take 1 mg by [...] 50 mg by mouth daily at * [id number] IC ACID-V* Take by mouth. 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 Encounter Status:Closed by MAGUE BLEVINS CNP on 02/23/19 [facility] PROGRESSon 02-23-2019 PROGRESS HNO ID: [id number] Author: Mague Blevins CNP Service: ? Author Type: Nurse Practitioner Type: Progress Notes Filed: 02/23/2019 3:46 PM Note Text: Subjective Patient is a 78 year old male presenting with back pain and foot pain. Back Pain This is a chronic problem. The problem has been gradually improving. The pain is present in the lumbar spine and sacro-iliac joint. The quality of the pain is described as aching. The pain radiates to the left thigh. The pain is at a severity of 2/10. The pain is mild. Exacerbated by: walking. Pertinent negatives include no chest pain, no headaches, no dysuria, no tingling and no weakness. He has tried NSAIDs and ice (PT) for the symptoms. The treatment provided moderate relief. Pain (foot) This is a chronic problem. The problem occurs constantly. The problem has been gradually worsening. The quality of the pain is described as aching and burning. The pain is at a severity of 3/10. The pain is mild. Pertinent negatives include no itching or tingling. The symptoms are aggravated by activity. He has tried oral narcotics, rest and NSAIDS for the symptoms. Shoulder Injury The incident occurred at home. The injury mechanism was a fall. The right shoulder is affected. The pain is at a severity of 7/10. The pain is moderate. The pain has been constant since onset. Pertinent negatives include no tingling. He is recovering from a rotator cuff surgery. He is in PT. He is doing well. He is needing refills on his gabapentin. Review of Systems Eyes: Negative for blurred vision and double vision. Respiratory: Negative for shortness of breath. Cardiovascular: Positive for leg swelling. Negative for chest pain. Gastrointestinal: Negative for constipation, diarrhea, nausea and vomiting. Genitourinary: Negative for dysuria. Musculoskeletal: Positive for back pain. Skin: Negative for itching. Neurological: Negative for dizziness, tingling, weakness and headaches. Endo/Heme/Allergies: Does not bruise/bleed easily. Psychiatric/Behavior al: Negative for depression and suicidal ideas. The patient is not nervous/anxious. PAST MEDICAL HISTORY Diagnosis Date - BPH (benign prostatic hyperplasia) - CAD (coronary artery disease) - Displacement of lumbar intervertebral disc without myelopathy - Diverticulitis - Gout - Hypertension - Neuropathic pain - Obesity - Spinal stenosis of lumbar region - Venous insufficiency PAST SURGICAL HISTORY Procedure Laterality Date - PAST SURGICAL HISTORY OF cartilage and veins removal - PAST SURGICAL HISTORY OF vein ligation x 2 - ROTATOR CUFF REPAIR 11/30/2018 - TOTAL KNEE REPLACEMENT Right FAMILY HISTORY Problem Relation Age of Onset - Prostate Cancer Father Social History Socioeconomic History Marital status: Spouse name: Not on file Number of children: Not on file Years of education: Not on file Highest education level: Not on file Occupational History Not on file Social Needs Financial resource strain: Not on file Food insecurity: Worry: Not on file Inability: Not on file Transportation needs: Medical: Not on file Non-medical: Not on file Tobacco Use Smoking status: Never Smoker Smokeless tobacco: Never Used Substance and Sexual Activity Alcohol use: Yes Comment: 3 beers yearly Drug use: No Sexual activity: Not on file Lifestyle Physical activity: Days per week: Not on file Minutes per session: Not on file Stress: Not on file Relationships Social connections: Talks on phone: Not on file Gets together: Not on file Attends christianity service: Not on file Active member of club or organization: Not on file Attends meetings of clubs or organizations: Not on file Relationship status: Not on file Intimate partner violence: Fear of current or ex partner: Not on file Emotionally abused: Not on file Physically abused: Not on file Forced sexual activity: Not on file Other Topics Concerns: Service: Not Asked Blood Transfusions: Not Asked Caffeine Concern: Yes 3 cups of coffee/soda per day Occupational Exposure: Not Asked Hobby Hazards: Not Asked Sleep Concern: Not Asked Stress Concern: Not Asked Weight Concern: Not Asked Special Diet: Yes regular; watches carbs Back Care: Not Asked Exercise: Yes walking Bike Helmet: Not Asked Seat Belt: Not Asked Self-Exams: Not Asked Social History Narrative Not on file Current Meds gabapentin (NEURONTIN) 300 mg capsule take 1 capsule every morning and 2 capsules at bedtime IBUPROFEN ORAL Take by mouth. FOLIC ACID ORAL Take 1 mg by mouth. traZODone (DESYREL) 50 mg tablet Take 50 mg by mouth daily at bedtime. ACETAMINOPHEN ORAL Take by mouth. betamethasone dipropionate (DIPROSONE) 0.05 % cream diphenhydrAMINE-Acet aminophen (TYLENOL PM EXTRA STRENGTH) 25-500 mg tab Take by mouth. allopurinol (ZYLOPRIM) 100 mg tablet twice daily. tamsulosin ER (FLOMAX) 0.4 mg cp24 Take 0.4 mg by mouth once daily. ANDROGEL 20.25 mg/1.25 gram (1.62 %) glpm Apply 2 pumps to affected area as needed. Valsartan-Hydrochlor othiazide 320-25 mg per tablet Take 1 tablet by mouth once daily. diphenhydrAMINE (BENADRYL) 50 mg capsule Take 50 mg by mouth daily at bedtime. uojopfqq-loz-PU-K-ly copene 400-20-370 mcg tab Take by mouth. Cholecalciferol, Vitamin D3, 5,000 unit tab Take 5,000 Units by mouth once daily. Objective BP 127/73 Pulse 92 Ht 175.3 cm (5' 9) Wt 90.7 kg (200 lb) BMI 29.53 kg/m? Physical Exam Constitutional: He is oriented to person, place, and time and well-developed, well-nourished, and in no distress. HENT: Head: Normocephalic and atraumatic. Right Ear: Hearing normal. Left Ear: Hearing normal. Nose: No rhinorrhea. Eyes: Pupils are equal, round, and reactive to light. Cardiovascular: Normal rate, regular rhythm and normal heart sounds. Pulmonary/Chest: Effort normal and breath sounds normal. Abdominal: Normal appearance and bowel sounds are normal. Musculoskeletal: Right shoulder: He exhibits decreased range of motion, tenderness and pain. Left hip: He exhibits decreased range of motion and decreased strength. Tenderness: left hip bursa. Lumbar back: He exhibits decreased range of motion, tenderness (left SI joint), bony tenderness, pain and spasm. Right foot: There is decreased range of motion and bony tenderness. Left foot: There is decreased range of motion and tenderness. Neurological: He is alert and oriented to person, place, and time. He displays weakness (left lower extremity. knee: 4/5, ankle 4/5). A sensory deficit (left lower extremity. L4 distrubution) is present. Gait normal. Reflex Scores: Patellar reflexes are 2+ on the right side and 1+ on the left side. Achilles reflexes are 2+ on the right side and 2+ on the left side. Psychiatric: Mood, memory, affect and judgment normal. Assessment/Plan 1. Other chronic pain OARRs was completed and is consistent with current reported medications. I will refill his medications at the same dose. He is stable on these and they allow him to stay active. - gabapentin (NEURONTIN) 300 mg capsule; take 1 capsule every morning and 2 capsules at bedtime Dispense: 90 capsule; Refill: 3 2. Hereditary and idiopathic peripheral neuropathy 3. Displacement of lumbar intervertebral disc without myelopathy 4. S/P shoulder surgery Mague Blevins APRN.REGISTERED NURSE SUPERVISOR [facility] FREE TESTOSTERon 01-29-2019 TEST FREE&WB % 14.8 % Normal 9.0-46.0 [facility] Comment on above: Result Comment: This test was developed and its performance characteristics determined by [facility]. It has not been cleared or approved by the Food and Drug Administration. Performed By: #### L 500.68865, L500.30432, L500.36890, L500.45622 #### [facility] [address] [place] [address] TESTFREEWEAK 129.5 ng/dL Normal 40.0-250.0 [facility] Comment on above: Result Comment: Perf ormed At: [facility] [address] [place], [place] [id number] George Maxwell PhD [id number] Performed At: [facility] [address] [id number] Salvador Hyde MD [id number] Performed By: #### L 500.27610, L500.72228, L500.56382, L500.34847 #### [facility] [address] [place] [address] TOTAL TEST 875 ng/dL Normal 264-916 [facility] Comment on above: Result Comment: Adul t male reference interval is based on a population of healthy nonobese males (BMI <30) between 19 and 39 years old. Ramon et.al. JCEM 2017,102;4167-2036. PMID: [id number]. Performed By: #### L 500.82462, L500.29952, L500.27964, L500.64137 #### [facility] [address] [place] [address] CBC W/DIFFon 01-27-2019 BASO ABS 0.00 K/CU MM Normal 0-0.2 [facility] Comment on above: Performed By: #### L 200.28914, L550.46016 #### [facility] [address] [place], [place] [id number] Basophils/100 WBC (Bld) 0.7 % Normal 0-2 [facility] Comment on above: Performed By: #### L 200.59751, L550.84716 #### [facility] [address] [place] [address] EOS ABS 0.20 K/CU MM Normal 0-0.5 [facility] Comment on above: Performed By: #### L 200.93672, L550.72102 #### [facility] [address] [place] [address] Eosinophils/100 WBC (Bld) 3.2 % Normal 0-5 [facility] Comment on above: Performed By: #### L 200.31108, L550.41621 #### [facility] [address] [place] [address] Erythrocyte distribution width (RBC) [Ratio] 15.1 % High 11-14.5 [facility] Comment on above: Performed By: #### L 200.65740, L550.92555 #### [facility] [address] [place] [address] Hematocrit (Bld) [Volume fraction] 46.0 % Normal 41.0-53.0 [facility] Comment on above: Performed By: #### L 200.29907, L550.61587 #### [facility] [address] [place] [address] Hemoglobin (Bld) [Mass/Vol] 15.4 g/dL Normal 13.5-17.5 [facility] Comment on above: Performed By: #### L 200.77625, L550.41499 #### [facility] [address] [place] [address] IMMATR GRAN ABS 0.00 K/CU MM Normal Less than 2 [facility] Comment on above: Performed By: #### L 200.97039, L550.34256 #### [facility] [address] [place] [address] IMMATURE GRAN % 0.7 % Normal Less than 2 [facility] Comment on above: Performed By: #### L 200.47893, L550.50464 #### [facility] [address] [place] [address] Lymphocytes (Bld) [#/Vol] 1.50 K/CU MM Normal 0.9-4.4 [facility] Comment on above: Performed By: #### L 200.71670, L550.19823 #### [facility] [address] [place] [address] Lymphocytes/100 WBC (Bld) 26.9 % Normal 20-40 [facility] Comment on above: Performed By: #### L 200.58774, L550.73571 #### [facility] [address] [place] [address] MCHC (RBC) [Mass/Vol] 33.5 g/dL Normal 32.0-36.0 [facility] Comment on above: Performed By: #### L 200.03173, L550.42809 #### [facility] [address] [place] [address] MCV (RBC) [Entitic vol] 95.6 fL Normal 80.0-99.0 [facility] Comment on above: Performed By: #### L 200.36788, L550.72833 #### [facility] [address] [place] [address] MONO ABS 0.50 K/CU MM Normal 0.1-1.1 [facility] Comment on above: Performed By: #### L 200.25400, L550.73480 #### [facility] [address] [place] [address] Monocytes/100 WBC (Bld) 8.5 % Normal 2-10 [facility] Comment on above: Performed By: #### L 200.95766, L550.34570 #### [facility] [address] [place] [address] NEUTROPHIL ABS 3.40 K/CU MM Normal 2.0-8.3 [facility] Comment on above: Performed By: #### L 200.80721, L550.30172 #### [facility] [address] [place] [address] Neutrophils/100 WBC (Bld) 60.0 % Normal 45-75 [facility] Comment on above: Performed By: #### L 200.76358, L550.80769 #### [facility] [address] [place] [address] Nucleated RBC/100 WBC (Bld) [Ratio] 0.0 % Normal Less than 1 [facility] Comment on above: Performed By: #### L 200.35825, L550.42318 #### [facility] [address] [place] [address] Platelet mean volume (Bld) [Entitic vol] 10.5 fL Normal 9.4-12.4 [facility] Comment on above: Performed By: #### L 200.41900, L550.61256 #### [facility] [address] [place], [place] [id number] Platelets (Bld) [#/Vol] 145 K/CU MM Low 150-450 [facility] Comment on above: Performed By: #### L 200.09205, L550.93745 #### [facility] [address] [place], [place] [phone] RBC (Bld) [#/Vol] 4.81 M/CU MM Normal 4.50-6.00 [facility] Comment on above: Performed By: #### L 200.80048, L550.07147 #### [facility] [address] [place] [address] WBC (Bld) [#/Vol] 5.7 K/CUMM Normal 4.5-11.0 [facility] Comment on above: Performed By: #### L 200.74284, L550.89565 #### [facility] [address] [place] [address] FREE TESTOSTERon 01-27-[address] TESTOSTERO LCMS TNP Normal [facility] Comment on above: Performed By: #### L 500.76887, L500.78525, L500.37006, L500.97129 #### [facility] [address] [place] [address] HGB A1C GLYCOHBon 01-27-2019 HbA1c (Bld) [Mass fraction] 5.5 % Normal 4.3-6.0 [facility] Comment on above: Performed By: #### L 200.58030, L550.61703 #### [facility] [address] [place] [address] URIC ACIDon 01-27-2019 Urate [Mass/Vol] 5.9 mg/dL Normal 2.6-6.0 [facility] Comment on above: Result Comment: Eva ents receiving Metamizole prior to venipuncture, may have falsely depressed results. Performed By: #### L 500.88107, L500.73567 #### [facility] [address] [place] [address] #### L550.69686 #### [address] [id number] CNOVon 01-14-2019 CNOV Office Visit (MERRY) IMAN BARKER ([id number]) 1940 [address] [facility] Date Time Provider Department 01/14/19 2:00 PM SHEILA ROJAS During your visit today, we recorded the following information about you: Sheila Rojas MD 01/14/2019 3:10 PM Signed [facility] EVALUATION (This was a 15 minute office visit) 01/14/2019 Primary Care Physician: Maryjo Ford MD CLINICAL INDICATION/HISTORY: The patient is a 78 year old male with a history of varicose veins with bleeding and a past history of previous vein interventions.. The patient was initially evaluated on October 30 in the vascular surgery office and was found to have stasis dermatitis and multiple varicosities with a healing ulceration.. The patient was prescribed 20?30 mm mercury knee high compression stockings and has been attempting to treat venous insufficiency for the past 4-5 months. Stockings he reports were her scribed to him by Dr. Campbell in [facility].. FOCUSED PHYSICAL EXAM: Varicose Veins: Yes Reticular veins/venulectasias/ spider veins: Yes Swelling: Yes Hyperpigmentation: Yes Stasis dermatitis: Yes Ulceration: Currently healed. Ultrasound-guided been done November [address] [facility] showing the right leg a little bit of lesser saphenous vein insufficiency but massive primary varicosities from the groin down involving a short segment of the anterior accessory greater saphenous vein. Please note the copy of the report from the November 17, 2018 study. On the left the greater have his vein has proximal insufficiency but also a lot of primary varicosities from the upper thigh area all way down to the ankle level. IMPRESSION: Patient's right leg is more symptomatic and he has a lot of lobectomy type work that is likely to be done to try and decompress the skin changes as well as a bleeding site studies prone to have on the right side. The left leg is just a little bit better but not much. Would recommend endovascular laser ablation of the residual left greater saphenous vein and able toward phlebectomy extensively on the left side. On the right side it's pretty much all ambulatory phlebectomy except for the distal part of the lesser saphenous vein. Endovascular ablation might be of benefit there but this is such a terminal branch that I would probably try angles were phlebectomy before we did any other laser on the right side or ultrasound-guided sclerotherapy. Patient will provide us with the documentation that he got compression stockings at a prescription level in August of this year at which point we will submit for insurance. If not able to provide us that documentation we gave him new documentation for appropriate compression stockings and we can wait to 6 weeks and that event before seeing him again. RECOMMENDATION: Once insurance is authorization and we'll toward phlebectomy bilaterally, at least 2 hours for every episode as well as an endovascular laser ablation on the left for greater saphenous vein insufficiency. Sheila Rojas MD Referring Provider: SELF [200] Allergies As of Date: 01/14/2019 Noted Allergy Reaction SULFA (SULFONAMIDE ANTIBIOTICS) 07/19/2015 2 - Rash 4 - Hives Date Reviewed: 01/14/2019 Reviewed by: Sheila Rojas - Fully Assessed Reason for Visit: Varicose Veins [965] Venous Insufficiency [609] Leg Edema [769] Leg Pain [1219] Primary Visit Diagnosis:Bleeding from varicose vein [I83.899] Other Visit Diagnosis:Venous insufficiency (chronic) (peripheral) [I87.2] Order(s):COMPRESSION STOCKINGS [[id number]] Order #: [id number] COMPRESSION STOCKINGS [[id number]] Order #: [id number] Prescriptions as of 01/14/2019 Sig: GABAPENTIN 300 MG CAPSULE take 1 capsule every morning * IBUPROFEN ORAL Take by mouth. FOLIC ACID ORAL Take 1 mg by mouth. TRAZODONE 50 MG TABLET Take 50 mg by mouth daily at * ACETAMINOPHEN ORAL Take by mouth. BETAMETHASONE DIPROPIONATE 0.* ALLOPURINOL 100 MG TABLET twice daily. TAMSULOSIN 0.4 MG CAPSULE Take 0.4 mg by mouth once tulio* ANDROGEL 20.25 MG/1.25 GRAM (* Apply 2 pumps to affected are* VALSARTAN 320 MG-HYDROCHLOROT* Take 1 tablet by mouth once d* DIPHENHYDRAMINE 50 MG CAPSULE Take 50 mg by mouth daily at * JEGIMNZEPTQO-JGR-BIN IC ACID-V* Take by mouth. CHOLECALCIFEROL (VITAMIN D3) * Take 5,000 Units by mouth onc* DIPHENHYDRAMINE 25 MG-ACETAMI* Take by mouth. 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 Follow-up and Disposition History Recorded Letter Text Encounter Status:Closed by SHEILA ROJAS MD on 01/14/19 [facility] PROGRESSon 01-14-2019 PROGRESS HNO ID: [id number] Author: Sheila Rojas Service: ? Author Type: Physician Type: Progress Notes Filed: 01/14/2019 3:10 PM Note Text: [facility] EVALUATION (This was a 15 minute office visit) 01/14/2019 Primary Care Physician: Maryjo Ford MD CLINICAL INDICATION/HISTORY: The patient is a 78 year old male with a history of varicose veins with bleeding and a past history of previous vein interventions.. The patient was initially evaluated on October 30 in the vascular surgery office and was found to have stasis dermatitis and multiple varicosities with a healing ulceration.. The patient was prescribed 20?30 mm mercury knee high compression stockings and has been attempting to treat venous insufficiency for the past 4-5 months. Stockings he reports were her scribed to him by Dr. Campbell in [facility].. FOCUSED PHYSICAL EXAM: Varicose Veins: Yes Reticular veins/venulectasias/ spider veins: Yes Swelling: Yes Hyperpigmentation: Yes Stasis dermatitis: Yes Ulceration: Currently healed. Ultrasound-guided been done November 17 at [facility] showing the right leg a little bit of lesser saphenous vein insufficiency but massive primary varicosities from the groin down involving a short segment of the anterior accessory greater saphenous vein. Please note the copy of the report from the November 17, 2018 study. On the left the greater have his vein has proximal insufficiency but also a lot of primary varicosities from the upper thigh area all way down to the ankle level. IMPRESSION: Patient's right leg is more symptomatic and he has a lot of lobectomy type work that is likely to be done to try and decompress the skin changes as well as a bleeding site studies prone to have on the right side. The left leg is just a little bit better but not much. Would recommend endovascular laser ablation of the residual left greater saphenous vein and able toward phlebectomy extensively on the left side. On the right side it's pretty much all ambulatory phlebectomy except for the distal part of the lesser saphenous vein. Endovascular ablation might be of benefit there but this is such a terminal branch that I would probably try angles were phlebectomy before we did any other laser on the right side or ultrasound-guided sclerotherapy. Patient will provide us with the documentation that he got compression stockings at a prescription level in August of this year at which point we will submit for insurance. If not able to provide us that documentation we gave him new documentation for appropriate compression stockings and we can wait to 6 weeks and that event before seeing him again. RECOMMENDATION: Once insurance is authorization and we'll toward phlebectomy bilaterally, at least 2 hours for every episode as well as an endovascular laser ablation on the left for greater saphenous vein insufficiency. Sheila Rojas MD [facility] CNOVon 11-17-2018 CNOV Office Visit (AGCARDVEIN) IMAN BARKER ([id number]) 1940 [facility] Date Time Provider Department 11/17/18 9:30 AM [facility] During your visit today, we recorded the following information about you: Referring Provider: SELF [[id number]] Allergies As of Date: 11/17/2018 Noted Allergy Reaction SULFA (SULFONAMIDE ANTIBIOTICS) 07/19/2015 2 - Rash 4 - Hives Date Reviewed: 11/10/2018 Reviewed by: Edilma Oh MA - Fully Assessed Reason for Visit: Varicose Veins [965] Venous Insufficiency [609] Bleeding/Bruising [14] Primary Visit Diagnosis:Bleeding from varicose vein [I83.899] Other Visit Diagnosis:Venous insufficiency (chronic) (peripheral) [I87.2] Prescriptions as of 11/17/2018 Sig: GABAPENTIN 300 MG CAPSULE take 1 capsule every morning * IBUPROFEN ORAL Take by mouth. FOLIC ACID ORAL Take 1 mg by [...] 50 mg by mouth daily at * [id number] IC ACID-V* Take by mouth. 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 Lincoln Palafox 12/04/2018 3:26 PM Signed Called [facility] and spoke with Marian. She stated tramadol does not need a PA. She stated since the Rx was new the initial fill was required to be a 7 day supply and now it pays out with no issues for the full 30 day supply. Patient notified. Lincoln Palafox Allergies As of Date: 11/17/2018 Noted Allergy Reaction SULFA (SULFONAMIDE ANTIBIOTICS) 07/19/2015 2 - Rash 4 - Hives Date Reviewed: 11/10/2018 Reviewed by: Edilma Oh MA - Fully Assessed Reason for Visit: Medication Authorization [[id number]] Cmt: tramadol Reason For Visit History Recorded Prescriptions as of 11/17/2018 Sig: GABAPENTIN 300 MG CAPSULE take 1 capsule every morning * IBUPROFEN ORAL Take by mouth. FOLIC ACID ORAL Take 1 mg by [...] 50 mg by mouth daily at * [id number] IC ACID-V* Take by mouth. 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] INVALID FOR* Elongated styloid process syndrome [M89.8X8] INVALID FOR* Encounter Status:Closed by LINCOLN PALAFOX on 11/17/18 [facility] CNOVon 11-10-2018 CNOV Office Visit (AGSPINE3) IMAN BARKER ([id number]) 1940 [facility] Date Time Provider Department 11/10/18 8:15 AM [facility] During your visit today, we recorded the following information about you: Blood pressure Weight Height 116/78 90.7 kg 1.753 m Mague Blevins APRN.REGISTERED NURSE SUPERVISOR 11/10/2018 8:36 AM Signed Subjective Comments NO LONGER TAKING TRAMADOL MEDICATION NAME Tramadol STRENGTH 50 LAST FILL DATE 07/25/2018 DATE LAST DOSE TAKEN 10 days ago QUANTITY FILLED 60 QUANTITY REMAINING 11 Patient is a 78 year old male presenting with back pain and foot pain. Back Pain This is a chronic problem. The problem has been gradually improving. The pain is present in the lumbar spine and sacro-iliac joint. The quality of the pain is described as aching. The pain radiates to the left thigh. The pain is at a severity of 2/10. The pain is mild. Exacerbated by: walking. Pertinent negatives include no chest pain, no headaches, no dysuria, no tingling and no weakness. He has tried NSAIDs and ice (PT) for the symptoms. The treatment provided moderate relief. Pain (foot) This is a chronic problem. The problem occurs constantly. The problem has been gradually worsening. The quality of the pain is described as aching and burning. The pain is at a severity of 3/10. The pain is mild. Pertinent negatives include no itching or tingling. The symptoms are aggravated by activity. He has tried oral narcotics, rest and NSAIDS for the symptoms. Shoulder Injury The incident occurred at home. The injury mechanism was a fall. The right shoulder is affected. The pain is at a severity of 7/10. The pain is moderate. The pain has been constant since onset. Pertinent negatives include no tingling. He had a bad fall on the . He tore his rotator cuff. He will need to have surgery. He has not been using his pain medications. He will like to stop the tramadol and continue with the gabapentin. Review of Systems Eyes: Negative for blurred vision and double vision. Respiratory: Positive for shortness of breath. Cardiovascular: Negative for chest pain and leg swelling. Gastrointestinal: Negative for constipation, diarrhea, nausea and vomiting. Genitourinary: Negative for dysuria. Musculoskeletal: Positive for back pain. Skin: Negative for itching. Neurological: Negative for dizziness, tingling, weakness and headaches. Endo/Heme/Allergies: Bruises/bleeds easily. Psychiatric/Behavior al: Negative for depression and suicidal ideas. The patient is not nervous/anxious. PAST MEDICAL HISTORY Diagnosis Date - BPH (benign prostatic hyperplasia) - CAD (coronary artery disease) - Displacement of lumbar intervertebral disc without myelopathy - Diverticulitis - Gout - Hypertension - Neuropathic pain - Obesity - Spinal stenosis of lumbar region - Venous insufficiency PAST SURGICAL HISTORY Procedure Laterality Date - PAST SURGICAL HISTORY OF cartilage and veins removal - PAST SURGICAL HISTORY OF vein ligation x 2 - TOTAL KNEE REPLACEMENT Right FAMILY HISTORY Problem Relation Age of Onset - Prostate Cancer Father Social History Socioeconomic History Marital status: Spouse name: Not on file Number of children: Not on file Years of education: Not on file Highest education level: Not on file Social Needs Financial resource strain: Not on file Food insecurity - worry: Not on file Food insecurity - inability: Not on file Transportation needs - medical: Not on file Transportation needs - non-medical: Not on file Occupational History Not on file Tobacco Use Smoking status: Never Smoker Smokeless tobacco: Never Used Substance and Sexual Activity Alcohol use: Yes Comment: 3 beers yearly Drug use: No Sexual activity: Not on file Other Topics Concerns: Service: Not Asked Blood Transfusions: Not Asked Caffeine Concern: Yes 3 cups of coffee/soda per day Occupational Exposure: Not Asked Hobby Hazards: Not Asked Sleep Concern: Not Asked Stress Concern: Not Asked Weight Concern: Not Asked Special Diet: Yes regular; watches carbs Back Care: Not Asked Exercise: Yes walking Bike Helmet: Not Asked Seat Belt: Not Asked Self-Exams: Not Asked Social History Narrative Not on file Current Meds gabapentin (NEURONTIN) 300 mg capsule take 1 capsule every morning and 2 capsules at bedtime IBUPROFEN ORAL Take by mouth. FOLIC ACID ORAL Take 1 mg by mouth. traZODone (DESYREL) 50 mg tablet Take 50 mg by mouth daily at bedtime. ACETAMINOPHEN ORAL Take by mouth. betamethasone dipropionate (DIPROSONE) 0.05 % cream diphenhydrAMINE-Acet aminophen (TYLENOL PM EXTRA STRENGTH) 25-500 mg tab Take by mouth. allopurinol (ZYLOPRIM) 100 mg tablet twice daily. tamsulosin ER (FLOMAX) 0.4 mg cp24 Take 0.4 mg by mouth once daily. ANDROGEL 20.25 mg/1.25 gram (1.62 %) glpm Apply 2 pumps to affected area as needed. Valsartan-Hydrochlor othiazide 320-25 mg per tablet Take 1 tablet by mouth once daily. diphenhydrAMINE (BENADRYL) 50 mg capsule Take 50 mg by mouth daily at bedtime. zclibsud-cii-VO-K-ly copene 400-20-370 mcg tab Take by mouth. Cholecalciferol, Vitamin D3, 5,000 unit tab Take 5,000 Units by mouth once daily. Objective BP 116/78 Ht 5' 9 (1.75m) Wt 200 lb (90.7kg) BMI 29.52 kg/(m2). Physical Exam Constitutional: He is oriented to person, place, and time and well-developed, well-nourished, and in no distress. HENT: Head: Normocephalic and atraumatic. Right Ear: Hearing normal. Left Ear: Hearing normal. Nose: No rhinorrhea. Eyes: Pupils are equal, round, and reactive to light. Cardiovascular: Normal rate, regular rhythm and normal heart sounds. Pulmonary/Chest: Effort normal and breath sounds normal. Abdominal: Normal appearance and bowel sounds are normal. Musculoskeletal: Right shoulder: He exhibits decreased range of motion, tenderness and pain. Left hip: He exhibits decreased range of motion and decreased strength. Tenderness: left hip bursa. Lumbar back: He exhibits decreased range of motion, tenderness (left SI joint), bony tenderness, pain and spasm. Right foot: There is decreased range of motion and bony tenderness. Left foot: There is decreased range of motion and tenderness. Neurological: He is alert and oriented to person, place, and time. He displays weakness (left lower extremity. knee: 4/5, ankle 4/5). A sensory deficit (left lower extremity. L4 distrubution) is present. Gait normal. Reflex Scores: Patellar reflexes are 2+ on the right side and 1+ on the left side. Achilles reflexes are 2+ on the right side and 2+ on the left side. Psychiatric: Mood, memory, affect and judgment normal. Assessment/Plan 1. Other chronic pain OARRs was completed and is consistent with current reported medications. He will continue with the gabapentin. He will stop the tramadol. He will follow up 3 months. He will be having shoulder surgery - gabapentin (NEURONTIN) 300 mg capsule; take 1 capsule every morning and 2 capsules at bedtime Dispense: 90 capsule; Refill: 2 2. Hereditary and idiopathic peripheral neuropathy 3. Chronic left SI joint pain 4. Displacement of lumbar intervertebral disc without myelopathy 5. Spinal stenosis of lumbar region without neurogenic claudication Mague Blevins APRN.REGISTERED NURSE SUPERVISOR Referring Provider: MARYJO FORD [[id number]] Allergies As of Date: 11/10/2018 Noted Allergy Reaction SULFA (SULFONAMIDE ANTIBIOTICS) 07/19/2015 2 - Rash 4 - Hives Date Reviewed: 11/10/2018 Reviewed by: Edilma Oh MA - Fully Assessed Reason for Visit: Rx Refills [128] Primary Visit Diagnosis:Hereditary and idiopathic peripheral neuropathy [G60.9] Other Visit Diagnoses:Other chronic pain [G89.29] Chronic left SI joint pain [M53.3, G89.29] Displacement of lumbar intervertebral disc without myelopathy [M51.26] Spinal stenosis of lumbar region without neurogenic claudication [M48.061] Order(s):gabapentin (NEURONTIN) 300 mg capsuletake 1 capsule every morning and 2 capsules at bedtimeDisp: 90 capsuleRfl: 2 Prescriptions as of 11/10/2018 Sig: GABAPENTIN 300 MG CAPSULE take 1 capsule every morning * IBUPROFEN ORAL Take by mouth. FOLIC ACID ORAL Take 1 mg by [...] 50 mg by mouth daily at * [id number] IC ACID-V* Take by mouth. 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 Disc: Reason for discontinue is not on file. gabapentin (NEURONTIN) 300 mg capsule 90 c* 2 07/21/2018 11/10/2018 Sig: take 1 capsule every morning and 2 capsules at bedtime Disc: Reason for discontinue is not on file. Questionnaire: AG SPINE PAIN PILL COUNT MEDICATION NAME -> Tramadol STRENGTH -> 50 LAST FILL DATE -> 07/25/2018 DATE LAST DOSE TAKEN -> 10 days ago QUANTITY FILLED -> 60 QUANTITY REMAINING -> 11 Encounter Status:Closed by MAGUE BLEVINS CNP on 11/10/18 [facility] PROGRESSon 11-10-2018 PROGRESS HNO ID: [id number] Author: Mague Blevins Service: ? Author Type: Nurse Practitioner Type: Progress Notes Filed: 11/10/2018 8:36 AM Note Text: Subjective Comments NO LONGER TAKING TRAMADOL MEDICATION NAME Tramadol STRENGTH 50 LAST FILL DATE 07/25/2018 DATE LAST DOSE TAKEN 10 days ago QUANTITY FILLED 60 QUANTITY REMAINING 11 Patient is a 78 year old male presenting with back pain and foot pain. Back Pain This is a chronic problem. The problem has been gradually improving. The pain is present in the lumbar spine and sacro-iliac joint. The quality of the pain is described as aching. The pain radiates to the left thigh. The pain is at a severity of 2/10. The pain is mild. Exacerbated by: walking. Pertinent negatives include no chest pain, no headaches, no dysuria, no tingling and no weakness. He has tried NSAIDs and ice (PT) for the symptoms. The treatment provided moderate relief. Pain (foot) This is a chronic problem. The problem occurs constantly. The problem has been gradually worsening. The quality of the pain is described as aching and burning. The pain is at a severity of 3/10. The pain is mild. Pertinent negatives include no itching or tingling. The symptoms are aggravated by activity. He has tried oral narcotics, rest and NSAIDS for the symptoms. Shoulder Injury The incident occurred at home. The injury mechanism was a fall. The right shoulder is affected. The pain is at a severity of 7/10. The pain is moderate. The pain has been constant since onset. Pertinent negatives include no tingling. He had a bad fall on the . He tore his rotator cuff. He will need to have surgery. He has not been using his pain medications. He will like to stop the tramadol and continue with the gabapentin. Review of Systems Eyes: Negative for blurred vision and double vision. Respiratory: Positive for shortness of breath. Cardiovascular: Negative for chest pain and leg swelling. Gastrointestinal: Negative for constipation, diarrhea, nausea and vomiting. Genitourinary: Negative for dysuria. Musculoskeletal: Positive for back pain. Skin: Negative for itching. Neurological: Negative for dizziness, tingling, weakness and headaches. Endo/Heme/Allergies: Bruises/bleeds easily. Psychiatric/Behavior al: Negative for depression and suicidal ideas. The patient is not nervous/anxious. PAST MEDICAL HISTORY Diagnosis Date - BPH (benign prostatic hyperplasia) - CAD (coronary artery disease) - Displacement of lumbar intervertebral disc without myelopathy - Diverticulitis - Gout - Hypertension - Neuropathic pain - Obesity - Spinal stenosis of lumbar region - Venous insufficiency PAST SURGICAL HISTORY Procedure Laterality Date - PAST SURGICAL HISTORY OF cartilage and veins removal - PAST SURGICAL HISTORY OF vein ligation x 2 - TOTAL KNEE REPLACEMENT Right FAMILY HISTORY Problem Relation Age of Onset - Prostate Cancer Father Social History Socioeconomic History Marital status: Spouse name: Not on file Number of children: Not on file Years of education: Not on file Highest education level: Not on file Social Needs Financial resource strain: Not on file Food insecurity - worry: Not on file Food insecurity - inability: Not on file Transportation needs - medical: Not on file Transportation needs - non-medical: Not on file Occupational History Not on file Tobacco Use Smoking status: Never Smoker Smokeless tobacco: Never Used Substance and Sexual Activity Alcohol use: Yes Comment: 3 beers yearly Drug use: No Sexual activity: Not on file Other Topics Concerns: Service: Not Asked Blood Transfusions: Not Asked Caffeine Concern: Yes 3 cups of coffee/soda per day Occupational Exposure: Not Asked Hobby Hazards: Not Asked Sleep Concern: Not Asked Stress Concern: Not Asked Weight Concern: Not Asked Special Diet: Yes regular; watches carbs Back Care: Not Asked Exercise: Yes walking Bike Helmet: Not Asked Seat Belt: Not Asked Self-Exams: Not Asked Social History Narrative Not on file Current Meds gabapentin (NEURONTIN) 300 mg capsule take 1 capsule every morning and 2 capsules at bedtime IBUPROFEN ORAL Take by mouth. FOLIC ACID ORAL Take 1 mg by mouth. traZODone (DESYREL) 50 mg tablet Take 50 mg by mouth daily at bedtime. ACETAMINOPHEN ORAL Take by mouth. betamethasone dipropionate (DIPROSONE) 0.05 % cream diphenhydrAMINE-Acet aminophen (TYLENOL PM EXTRA STRENGTH) 25-500 mg tab Take by mouth. allopurinol (ZYLOPRIM) 100 mg tablet twice daily. tamsulosin ER (FLOMAX) 0.4 mg cp24 Take 0.4 mg by mouth once daily. ANDROGEL 20.25 mg/1.25 gram (1.62 %) glpm Apply 2 pumps to affected area as needed. Valsartan-Hydrochlor othiazide 320-25 mg per tablet Take 1 tablet by mouth once daily. diphenhydrAMINE (BENADRYL) 50 mg capsule Take 50 mg by mouth daily at bedtime. kfovdsms-tra-ZU-K-ly copene 400-20-370 mcg tab Take by mouth. Cholecalciferol, Vitamin D3, 5,000 unit tab Take 5,000 Units by mouth once daily. Objective BP 116/78 Ht 5' 9 (1.75m) Wt 200 lb (90.7kg) BMI 29.52 kg/(m2). Physical Exam Constitutional: He is oriented to person, place, and time and well-developed, well-nourished, and in no distress. HENT: Head: Normocephalic and atraumatic. Right Ear: Hearing normal. Left Ear: Hearing normal. Nose: No rhinorrhea. Eyes: Pupils are equal, round, and reactive to light. Cardiovascular: Normal rate, regular rhythm and normal heart sounds. Pulmonary/Chest: Effort normal and breath sounds normal. Abdominal: Normal appearance and bowel sounds are normal. Musculoskeletal: Right shoulder: He exhibits decreased range of motion, tenderness and pain. Left hip: He exhibits decreased range of motion and decreased strength. Tenderness: left hip bursa. Lumbar back: He exhibits decreased range of motion, tenderness (left SI joint), bony tenderness, pain and spasm. Right foot: There is decreased range of motion and bony tenderness. Left foot: There is decreased range of motion and tenderness. Neurological: He is alert and oriented to person, place, and time. He displays weakness (left lower extremity. knee: 4/5, ankle 4/5). A sensory deficit (left lower extremity. L4 distrubution) is present. Gait normal. Reflex Scores: Patellar reflexes are 2+ on the right side and 1+ on the left side. Achilles reflexes are 2+ on the right side and 2+ on the left side. Psychiatric: Mood, memory, affect and judgment normal. Assessment/Plan 1. Other chronic pain OARRs was completed and is consistent with current reported medications. He will continue with the gabapentin. He will stop the tramadol. He will follow up 3 months. He will be having shoulder surgery - gabapentin (NEURONTIN) 300 mg capsule; take 1 capsule every morning and 2 capsules at bedtime Dispense: 90 capsule; Refill: 2 2. Hereditary and idiopathic peripheral neuropathy 3. Chronic left SI joint pain 4. Displacement of lumbar intervertebral disc without myelopathy 5. Spinal stenosis of lumbar region without neurogenic claudication Mague Blevins APRN.[facility] CNOVon 10-30-2018 [facility] Office Visit (AGVASACC) IMAN BARKER ([id number]) 1940 [facility] Date Time Provider Department 10/30/18 2:30 PM SHEILA ROJAS During your visit today, we recorded the following information about you: Pulse Respiration Blood pressure Weight 78/minute 18/minute 134/80 90.7 kg Height 1.753 m Sheila Rojas MD 10/30/2018 5:53 PM Signed INITIAL [facility] EVALUATION (This was a 30 minute office visit with more than 50% of time spent counseling the patient. 10/30/2018 Primary Care Physician: Maryjo Ford MD CLINICAL INDICATION/HISTORY: [facility] questionnaire was reviewed with the patient. The patient is a 78 year old male with a history of of bilateral vein stripping in the . He is noted a couple of episodes where he started to have bleeding episodically from superficial varicosities especially in the right calf region. He has been to a vein Center or a wound care center in [facility] and comes to us for second opinion. He's not had any ultrasound done that I'm aware of.22 FOCUSED PHYSICAL EXAM: Varicose Veins: Yes varicosities are fairly prominent in the calf region probably worse on the right side but there also present in the thigh region bilaterally. Reticular veins/venulectasias/ spider veins: Yes Swelling: Yes more at the ankle level in any place else and also at the left foot more than the right foot. Hyperpigmentation: Yes extensive discoloration from the ankle levels bilaterally almost up to the knee. Stasis dermatitis: Yes discoloration is very chronic but actual major skin dermatitis is fairly mild. Ulceration: No, area of bleeding in the not too distant past has healed up pretty well in both regions. He controls a pretty well with just compression as he should. He just recently got new compression stockings, knee-high and is been wearing them since the bleeding issues of stopped. INITIAL IMPRESSION: Ultrasound: Ultrasound is being ordered for reflux evaluation. He certainly has a lot of varicosities and May have deep system insufficiency or possibly just varicosities because of persistent superficial disease. ASSESSMENT/PLAN: 1. Venous insufficiency (chronic) (peripheral) - ICD9: 459.81, ICD10: I87.2 (primary diagnosis) His go to wear stockings daily as he has been for the last couple of weeks and we'll get the vein mapping ordered. - US VEIN MAPPING LOWER BILAT 2. Varicose veins of bilateral lower extremities with other complications - ICD9: 454.8, ICD10: I83.893 Therapy is pending completion of medical management as well as the results of the ultrasound. - US VEIN MAPPING LOWER BILAT Follow-up will likely be in [facility] rather than in the vascular office. Sheila Rojas MD Referring Provider: MARYJO FORD [[id number]] Allergies As of Date: 10/30/2018 Noted Allergy Reaction SULFA (SULFONAMIDE ANTIBIOTICS) 07/19/2015 2 - Rash 4 - Hives Date Reviewed: 10/30/2018 Reviewed by: Sheila Rojas - Fully Assessed Reason for Visit: Venous Insufficiency [609] Cmt: Iman is new pt self rfd for varicose veins AND dermatitis Primary Visit Diagnosis:Venous insufficiency (chronic) (peripheral) [I87.2] Other Visit Diagnosis:Varicose veins of bilateral lower extremities with other complications [I83.893] Order(s):US VEIN MAPPING LOWER BILAT [[id number]] Order #: [id number] Prescriptions as of 10/30/2018 Sig: IBUPROFEN ORAL Take by mouth. GABAPENTIN 300 MG CAPSULE take 1 capsule every morning * TRAMADOL 50 MG TABLET Take 1 tablet by mouth twice * FOLIC ACID ORAL Take 1 mg by [...] 50 mg by mouth daily at * [id number]-[id number] IC ACID-V* Take by mouth. 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 Follow-up and Disposition History Recorded Letter Text Encounter Status:Closed by SHEILA ROJAS MD on 10/30/18 [facility] PROGRESSon 10-30-2018 PROGRESS HNO ID: [id number] Author: Sheila Rojas Service: ? Author Type: Physician Type: Progress Notes Filed: 10/30/2018 5:53 PM Note Text: INITIAL [facility] EVALUATION (This was a 30 minute office visit with more than 50% of time spent counseling the patient. 10/30/2018 Primary Care Physician: Maryjo Ford MD CLINICAL INDICATION/HISTORY: The [facility] questionnaire was reviewed with the patient. The patient is a 78 year old male with a history of of bilateral vein stripping in the . He is noted a couple of episodes where he started to have bleeding episodically from superficial varicosities especially in the right calf region. He has been to a vein Center or a wound care center in [facility] and comes to us for second opinion. He's not had any ultrasound done that I'm aware of.22 FOCUSED PHYSICAL EXAM: Varicose Veins: Yes varicosities are fairly prominent in the calf region probably worse on the right side but there also present in the thigh region bilaterally. Reticular veins/venulectasias/ spider veins: Yes Swelling: Yes more at the ankle level in any place else and also at the left foot more than the right foot. Hyperpigmentation: Yes extensive discoloration from the ankle levels bilaterally almost up to the knee. Stasis dermatitis: Yes discoloration is very chronic but actual major skin dermatitis is fairly mild. Ulceration: No, area of bleeding in the not too distant past has healed up pretty well in both regions. He controls a pretty well with just compression as he should. He just recently got new compression stockings, knee-high and is been wearing them since the bleeding issues of stopped. INITIAL IMPRESSION: Ultrasound: Ultrasound is being ordered for reflux evaluation. He certainly has a lot of varicosities and May have deep system insufficiency or possibly just varicosities because of persistent superficial disease. ASSESSMENT/PLAN: 1. Venous insufficiency (chronic) (peripheral) - ICD9: 459.81, ICD10: I87.2 (primary diagnosis) His go to wear stockings daily as he has been for the last couple of weeks and we'll get the vein mapping ordered. - US VEIN MAPPING LOWER BILAT 2. Varicose veins of bilateral lower extremities with other complications - ICD9: 454.8, ICD10: I83.893 Therapy is pending completion of medical management as well as the results of the ultrasound. - US VEIN MAPPING LOWER BILAT Follow-up will likely be in [facility] rather than in the vascular office. Sheila Rojas MD [facility] CBC W/DIFFon 03-06-2019 BASO ABS 0.10 K/CU MM Normal 0-0.2 [facility] Comment on above: Performed By: #### L 200.16666, L550.37300 #### [facility] [address] [place] [address] Basophils/100 WBC (Bld) 0.7 % Normal 0-2 [facility] Comment on above: Performed By: #### L 200.46809, L550.56929 #### [facility] [address] [place] [address] EOS ABS 0.20 K/CU MM Normal 0-0.5 [facility] Comment on above: Performed By: #### L 200.07342, L550.48341 #### [facility] [address] [place] [address] Eosinophils/100 WBC (Bld) 2.5 % Normal 0-5 [facility] Comment on above: Performed By: #### L 200.22868, L550.55725 #### [facility] [address] [place] [address] Erythrocyte distribution width (RBC) [Ratio] 14.5 % Normal 11-14.5 [facility] Comment on above: Performed By: #### L 200.15060, L550.05968 #### [facility] [address] [place] [address] Hematocrit (Bld) [Volume fraction] 50.8 % Normal 41.0-53.0 [facility] Comment on above: Performed By: #### L 200.59686, L550.57476 #### [facility] [address] [place] [address] Hemoglobin (Bld) [Mass/Vol] 16.7 g/dL Normal 13.5-17.5 [facility] Comment on above: Performed By: #### L 200.40747, L550.69022 #### [facility] [address] [place] [address] IMMATR GRAN ABS 0.00 K/CU MM Normal Less than 2 [facility] Comment on above: Performed By: #### L 200.45737, L550.13938 #### [facility] [address] [place] [address] IMMATURE GRAN % 0.5 % Normal Less than 2 [facility] Comment on above: Performed By: #### L 200.70613, L550.60592 #### [facility] [address] [place] [address] Lymphocytes (Bld) [#/Vol] 1.90 K/CU MM Normal 0.9-4.4 [facility] Comment on above: Performed By: #### L 200.44262, L550.33561 #### [facility] [address] [place] [address] Lymphocytes/100 WBC (Bld) 24.7 % Normal 20-40 [facility] Comment on above: Performed By: #### L 200.98412, L550.98473 #### [facility] [address] [place] [address] MCHC (RBC) [Mass/Vol] 32.9 g/dL Normal 32.0-36.0 [facility] Comment on above: Performed By: #### L 200.66074, L550.26849 #### [facility] [address] [place] [address] MCV (RBC) [Entitic vol] 95.3 fL Normal 80.0-99.0 [facility] Comment on above: Performed By: #### L 200.50659, L550.04072 #### [facility] [address] [place] [address] MONO ABS 0.60 K/CU MM Normal 0.1-1.1 [facility] Comment on above: Performed By: #### L 200.24665, L550.09661 #### [facility] [address] [place] [address] Monocytes/100 WBC (Bld) 7.9 % Normal 2-10 [facility] Comment on above: Performed By: #### L 200.73590, L550.98677 #### [facility] [address] [place] [address] NEUTROPHIL ABS 4.90 K/CU MM Normal 2.0-8.3 [facility] Comment on above: Performed By: #### L 200.13850, L550.38186 #### [facility] [address] [place] [address] Neutrophils/100 WBC (Bld) 63.7 % Normal 45-75 [facility] Comment on above: Performed By: #### L 200.33697, L550.39812 #### [facility] [address] [place] [address] Nucleated RBC/100 WBC (Bld) [Ratio] 0.0 % Normal Less than 1 [facility] Comment on above: Performed By: #### L 200.30839, L550.03106 #### [facility] [address] [place] [address] Platelet mean volume (Bld) [Entitic vol] 10.5 fL Normal 9.4-12.4 [facility] Comment on above: Performed By: #### L 200.89055, L550.00282 #### [facility] [address] [place] [address] Platelets (Bld) [#/Vol] 141 K/CU MM Low 150-450 [facility] Comment on above: Performed By: #### L 200.26969, L550.85138 #### [facility] [address] [place] [address] RBC (Bld) [#/Vol] 5.33 M/CU MM Normal 4.50-6.00 [facility] Comment on above: Performed By: #### L 200.03386, L550.55603 #### [facility] [address] [place] [address] WBC (Bld) [#/Vol] 7.6 K/CUMM Normal 4.5-11.0 [facility] Comment on above: Performed By: #### L 200.90296, L550.65221 #### [facility] [address] [place], [place] [id number] CMPon 07-22-2018 Albumin [Mass/Vol] 4.0 g/dL Normal 3.2-5.0 [facility] Comment on above: Performed By: #### L 500.37388, L500.72734, L500.41560, L500.91792 #### [facility] [address] [place] [address] Albumin/Globulin [Mass ratio] 1.2 {ratio} Normal 0.8-2.0 [facility] Comment on above: Performed By: #### L 500.16109, L500.46285, L500.85361, L500.41136 #### [facility] [address] [place], [place] [address] ALK PHOS 86 U/L Normal 45-117 [facility] Comment on above: Performed By: #### L 500.85984, L500.68499, L500.02393, L500.28932 #### [facility] [address] [place], [place] [address] ALT [Catalytic activity/Vol] 37 U/L Normal 13-61 [facility] Comment on above: Result Comment: RESU LTS MAY BE FALSELY DEPRESSED AFTER THE ADMINISTRATION OF SULFASALAZINE AND/OR SULFAPYRIDINE. Performed By: #### L 500.42234, L500.72711, L500.19669, L500.45219 #### [facility] [address] [place] [address] Anion gap [Moles/Vol] 8 mmol/L Normal 5-16 [facility] Comment on above: Performed By: #### L 500.20394, L500.60671, L500.79229, L500.69005 #### [facility] [address] [place] [address] BILI TOTAL 1.0 MG/DL Normal 0.2-1.0 [facility] Comment on above: Performed By: #### L 500.66504, L500.17394, L500.21671, L500.86145 #### [facility] [address] [place] [address] Calcium [Mass/Vol] 9.5 mg/dL Normal 8.5-10.1 [facility] Comment on above: Performed By: #### L 500.17256, L500.99837, L500.74242, L500.98390 #### [facility] [address] [place] [address] Chloride [Moles/Vol] 103 mmol/L Normal 98-107 [facility] Comment on above: Performed By: #### L 500.87209, L500.26864, L500.28530, L500.09301 #### [facility] [address] [place] [address] CO2 [Moles/Vol] 28 mmol/L Normal 21-32 [facility] Comment on above: Performed By: #### L 500.25384, L500.72975, L500.28857, L500.79198 #### [facility] [address] [place] [address] Creatinine [Mass/Vol] 1.340 mg/dL High 0.670-1.[address] [facility] Comment on above: Result Comment: Eva ents receiving either N-Acetylcysteine (NAC) or Metamizole prior to venipuncture, may have falsely depressed results. Performed By: #### L 500.25135, L500.64146, L500.25122, L500.31655 #### [facility] [address] [place] [address] Globulin (S) [Mass/Vol] 3.3 g/dL Normal 2.2-4.2 [facility] Comment on above: Performed By: #### L 500.55736, L500.15744, L500.87236, L500.61596 #### [facility] [address] [place] [address] Glucose [Mass/Vol] 98 mg/dL Normal 70-100 [facility] Comment on above: Result Comment: 70-1 00- Normal Fasting; 100-125 Impaired Fasting; greater than 126 on more than one result- Diabetes. ADA guidelines. Results may be falsely elevated after the administration of Sulfapyridine. Results may be falsely depressed after the administration of Sulfasalazine. Performed By: #### L 500.58101, L500.93701, L500.25431, L500.25108 #### [facility] [address] [place] [address] Potassium [Moles/Vol] 4.0 mmol/L Normal 3.5-5.1 [facility] Comment on above: Performed By: #### L 500.32314, L500.57442, L500.26688, L500.50129 #### [facility] [address] [place] [address] Protein [Mass/Vol] 7.3 g/dL Normal 6.0-8.5 [facility] Comment on above: Performed By: #### L 500.03832, L500.91917, L500.50713, L500.46111 #### [facility] [address] [place] [address] SGOT (AST) 30 U/L Normal 8-34 [facility] Comment on above: Result Comment: RESU LTS MAY BE FALSELY DEPRESSED AFTER THE ADMINISTRATION OF SULFASALAZINE AND/OR SULFAPYRIDINE. Performed By: #### L 500.59530, L500.94001, L500.88615, L500.65218 #### [facility] [address] [place] [address] Sodium [Moles/Vol] 139 mmol/L Normal 136-145 [facility] Comment on above: Performed By: #### L 500.00314, L500.47769, L500.26160, L500.89938 #### [facility] [address] [place] [address] Urea nitrogen [Mass/Vol] 32 mg/dL High 7-26 [facility] Comment on above: Performed By: #### L 500.15416, L500.30985, L500.56823, L500.11054 #### [facility] [address] [place] [address] Urea nitrogen/Creatinine [Mass ratio] 24 mg/mg Normal 15-24 [facility] Comment on above: Performed By: #### L 500.26710, L500.95752, L500.77150, L500.04234 #### [facility] [address] [place], [place] [address] GFR ESTon 07-22-2018 IF AMER Greater than 60 Normal [facility] Comment on above: Performed By: #### L 500.20313, L500.45902, L500.79417, L500.85904 #### [facility] [place] [address] IF non-AFR AMER 52 ML/MIN Normal [facility] Comment on above: Performed By: #### L 500.49923, L500.63243, L500.07192, L500.79882 #### [facility] [address] [place] [address] HGB A1C GLYCOHBon 07-22-2018 HbA1c (Bld) [Mass fraction] 5.6 % Normal 4.3-6.0 [facility] Comment on above: Performed By: #### L 200.71032, L550.98547 #### [facility] [address] [place] [address] LIPIDon 07-22-2018 Cholesterol [Mass/Vol] 160 mg/dL Normal 0-199 [facility] Comment on above: Performed By: #### L 500.74250, L500.87604, L500.58603, L500.88755 #### [facility] [address] [place], [place] [address] Cholesterol in HDL [Mass/Vol] 37 mg/dL Low GREATER [place] 40 [facility] Comment on above: Result Comment: Eva ents receiving Metamizole prior to venipuncture, may have falsely depressed results. Performed By: #### L 500.96843, L500.03822, L500.00511, L500.76660 #### [facility] [address] [place] [address] Cholesterol in LDL [Mass/Vol] 98 mg/dL Normal 0-129 [facility] Comment on above: Result Comment: ___C HOLESTEROL/HDL RATIO RISK___ CHD RISK = Total CHOL LDL HDL (CHOL/HDL) Recommended <200 <130 >35 <3.4 Borderline 200-239 130-159 3.4-4.99 High >240 >160 >5.0 Performed By: #### L 500.24719, L500.35710, L500.97635, L500.03634 #### [facility] [address] [place] [address] Triglyceride [Mass/Vol] 124 mg/dL Normal 30-149 [facility] Comment on above: Result Comment: Eva ents receiving either N-Acetylcysteine (NAC) or Metamizole prior to venipuncture, may have falsely depressed results. Performed By: #### L 500.28922, L500.49013, L500.58794, L500.88237 #### [facility] [place] [address] PSA SCREENon 07-22-2018 PSA SCREEN 0.91 NG/ML Normal 0.0-4.0 [facility] Comment on above: Performed By: #### L 500.92561, L500.91540, L500.92544, L500.04254 #### [facility] [place] [address] UA COMPLETEon 07-22-2018 Color (U) Yellow Normal [facility] Comment on above: Performed By: #### L 600.25815 #### [facility] [address] [place] [address] Glucose (U) [Mass/Vol] Negative Normal NORMAL [facility] Comment on above: Performed By: #### L 600.28503 #### [facility] [address] [place] [address] UA APPEARANCE Clear Normal CLEAR [facility] Comment on above: Performed By: #### L 600.96447 #### [facility] [address] [place] [address] UA BILIRUBIN Negative Normal NEGATIVE [facility] Comment on above: Performed By: #### L 600.42474 #### [facility] [address] [place], [place] [address] UA BLOOD Negative Normal NEGATIVE [facility] Comment on above: Performed By: #### L 600.46104 #### [facility] [address] [place] [address] UA KETONE Negative Normal NEGATIVE [facility] Comment on above: Performed By: #### L 600. #### [facility] [address] [place], [place] [address] UA LK ESTERASE Negative Normal NEGATIVE [facility] Comment on above: Performed By: #### L 600.79200 #### [facility] [address] [place] [address] UA NITRITE Negative Normal NEGATIVE [facility] Comment on above: Performed By: #### L 600.71172 #### [facility] [address] [place] [address] UA PH 6.0 Normal 5-6 [facility] Comment on above: Performed By: #### L 600.42261 #### [facility] [address] [place] [address] UA PROTEIN Negative Normal NEGATIVE [facility] Comment on above: Performed By: #### L 600.14266 #### [facility] [address] [place] [address] UA SPEC GRAV 1.013 Normal 1.005-1.030 [facility] Comment on above: Performed By: #### L 600.44425 #### [facility] [address] [place] [address] UA UROBILINOGEN Negative Normal NORMAL [facility] Comment on above: Performed By: #### L 600.91316 #### [facility] [address] [place] [address] CNOVon 07-21-2018 CNOV Office Visit (AGSPINE3) IMAN BARKER ([id number]) 1940 M [facility] Date Time Provider Department 07/21/18 8:45 AM AQUILES ORDAZ AGSPINE3 During your visit today, we recorded the following information about you: Pulse Blood pressure Weight Height 68/minute 108/60 93 kg 1.753 m Flakita Short MA 07/21/2018 9:00 AM Signed Subjective HPI Review of Systems Eyes: Negative for blurred vision and double vision. Respiratory: Negative for shortness of breath. Cardiovascular: Negative for chest pain and leg swelling. Gastrointestinal: Negative for constipation, diarrhea and nausea. Genitourinary: Negative for dysuria. Skin: Positive for itching. Neurological: Negative for dizziness, tingling, weakness and headaches. Endo/Heme/Allergies: Bruises/bleeds easily. Psychiatric/Behavior al: Negative for depression and suicidal ideas. PAST MEDICAL HISTORY Diagnosis Date - Displacement of lumbar intervertebral disc without myelopathy - Diverticulitis - Spinal stenosis of lumbar region PAST SURGICAL HISTORY Procedure Laterality Date - PAST SURGICAL HISTORY OF cartilage and veins removal - TOTAL KNEE REPLACEMENT Right FAMILY HISTORY Problem Relation Age of Onset - Prostate Cancer Father Social History Socioeconomic History Marital status: Spouse name: Not on file Number of children: Not on file Years of education: Not on file Highest education level: Not on file Social Needs Financial resource strain: Not on file Food insecurity - worry: Not on file Food insecurity - inability: Not on file Transportation needs - medical: Not on file Transportation needs - non-medical: Not on file Occupational History Not on file Tobacco Use Smoking status: Never Smoker Smokeless tobacco: Never Used Substance and Sexual Activity Alcohol use: Yes Comment: 3 beers yearly Drug use: No Sexual activity: Not on file Other Topics Concerns: Service: Not Asked Blood Transfusions: Not Asked Caffeine Concern: Yes 3 cups of coffee/soda per day Occupational Exposure: Not Asked Hobby Hazards: Not Asked Sleep Concern: Not Asked Stress Concern: Not Asked Weight Concern: Not Asked Special Diet: Yes regular; watches carbs Back Care: Not Asked Exercise: Yes walking Bike Helmet: Not Asked Seat Belt: Not Asked Self-Exams: Not Asked Social History Narrative Not on file Current Meds IBUPROFEN ORAL Take by mouth. gabapentin (NEURONTIN) 300 mg capsule take 1 capsule every morning and 2 capsules at bedtime FOLIC ACID ORAL Take 1 mg by mouth. traZODone (DESYREL) 50 mg tablet Take 50 mg by mouth daily at bedtime. traMADol (ULTRAM) 50 mg tablet Take 1 tablet by mouth twice daily as needed for up to 30 days. betamethasone dipropionate (DIPROSONE) 0.05 % cream allopurinol (ZYLOPRIM) 100 mg tablet twice daily. tamsulosin ER (FLOMAX) 0.4 mg cp24 Take 0.4 mg by mouth once daily. ANDROGEL 20.25 mg/1.25 gram (1.62 %) glpm Apply 2 pumps to affected area as needed. Valsartan-Hydrochlor othiazide 320-25 mg per tablet Take 1 tablet by mouth once daily. diphenhydrAMINE (BENADRYL) 50 mg capsule Take 50 mg by mouth daily at bedtime. vpgyecth-boc-JI-K-ly copene 400-20-370 mcg tab Take by mouth. ACETAMINOPHEN ORAL Take by mouth. diphenhydrAMINE-Acet aminophen (TYLENOL PM EXTRA STRENGTH) 25-500 mg tab Take by mouth. Cholecalciferol, Vitamin D3, 5,000 unit tab Take 5,000 Units by mouth once daily. Objective There were no vitals taken for this visit. Physical Exam Aquiles Ordaz MD 07/21/2018 9:00 AM Signed Subjective HPI Iman Barker is a 77 year old male who presents today for refill and follow up today. He states that His pain in the AM is a 2/10 and then will escalate to 7/10 in the evening. He has been battling with a right lower extremity wound and was in the wound clinic with osteomyelitis. Pain is located from the knees to the feet. He has burning, numbness, and tingling. He takes his tramadol 5 night per week since the evening is the worse for him. He reports no adverse side effects from the medications. Patient reports no adverse side effects to current medication regimen. Current regimen does allow patient to maintain ADLs. Patient reports no new neurologic symptoms, new pain areas, or exacerbation in pain today. Patient reports they are happy with current treatment care path. ROS PAST MEDICAL HISTORY Diagnosis Date - Displacement of lumbar intervertebral disc without myelopathy - Diverticulitis - Spinal stenosis of lumbar region PAST SURGICAL HISTORY Procedure Laterality Date - PAST SURGICAL HISTORY OF cartilage and veins removal - TOTAL KNEE REPLACEMENT Right FAMILY HISTORY Problem Relation Age of Onset - Prostate Cancer Father Social History Socioeconomic History Marital status: Spouse name: Not on file Number of children: Not on file Years of education: Not on file Highest education level: Not on file Social Needs Financial resource strain: Not on file Food insecurity - worry: Not on file Food insecurity - inability: Not on file Transportation needs - medical: Not on file Transportation needs - non-medical: Not on file Occupational History Not on file Tobacco Use Smoking status: Never Smoker Smokeless tobacco: Never Used Substance and Sexual Activity Alcohol use: Yes Comment: 3 beers yearly Drug use: No Sexual activity: Not on file Other Topics Concerns: Service: Not Asked Blood Transfusions: Not Asked Caffeine Concern: Yes 3 cups of coffee/soda per day Occupational Exposure: Not Asked Hobby Hazards: Not Asked Sleep Concern: Not Asked Stress Concern: Not Asked Weight Concern: Not Asked Special Diet: Yes regular; watches carbs Back Care: Not Asked Exercise: Yes walking Bike Helmet: Not Asked Seat Belt: Not Asked Self-Exams: Not Asked Social History Narrative Not on file Current Meds IBUPROFEN ORAL Take by mouth. gabapentin (NEURONTIN) 300 mg capsule take 1 capsule every morning and 2 capsules at bedtime FOLIC ACID ORAL Take 1 mg by mouth. traZODone (DESYREL) 50 mg tablet Take 50 mg by mouth daily at bedtime. traMADol (ULTRAM) 50 mg tablet Take 1 tablet by mouth twice daily as needed for up to 30 days. betamethasone dipropionate (DIPROSONE) 0.05 % cream allopurinol (ZYLOPRIM) 100 mg tablet twice daily. tamsulosin ER (FLOMAX) 0.4 mg cp24 Take 0.4 mg by mouth once daily. ANDROGEL 20.25 mg/1.25 gram (1.62 %) glpm Apply 2 pumps to affected area as needed. Valsartan-Hydrochlor othiazide 320-25 mg per tablet Take 1 tablet by mouth once daily. diphenhydrAMINE (BENADRYL) 50 mg capsule Take 50 mg by mouth daily at bedtime. jdzfmdhx-hyi-UD-K-ly copene 400-20-370 mcg tab Take by mouth. ACETAMINOPHEN ORAL Take by mouth. diphenhydrAMINE-Acet aminophen (TYLENOL PM EXTRA STRENGTH) 25-500 mg tab Take by mouth. Cholecalciferol, Vitamin D3, 5,000 unit tab Take 5,000 Units by mouth once daily. Objective BP 108/60 Pulse 68 Ht 5' 9 (1.75m) Wt 205 lb (93.0kg) BMI 30.26 kg/(m2). Physical Exam Constitutional: He is oriented to person, place, and time and well-developed, well-nourished, and in no distress. HENT: Head: Normocephalic and atraumatic. Right Ear: Hearing normal. Left Ear: Hearing normal. Nose: No rhinorrhea. Eyes: Pupils are equal, round, and reactive to light. Cardiovascular: Normal rate, regular rhythm and normal heart sounds. Pulmonary/Chest: Effort normal and breath sounds normal. Abdominal: Normal appearance and bowel sounds are normal. Musculoskeletal: Lumbar back: He exhibits decreased range of motion and pain. Tenderness: left SI joint. Right foot: There is decreased range of motion and bony tenderness. Left foot: There is decreased range of motion and tenderness. Neurological: He is alert and oriented to person, place, and time. Weakness: left lower extremity. knee: 4/5, ankle 4/5. A sensory deficit (left lower extremity. L4 distrubution) is present. Gait normal. Reflex Scores: Patellar reflexes are 2+ on the right side and 1+ on the left side. Achilles reflexes are 2+ on the right side and 2+ on the left side. Psychiatric: Mood, memory, affect and judgment normal. Nursing note and vitals reviewed. Assessment and Plan I had a nice discussion with the patient today about their current pain and the pathology that could be causing it. We discussed different treatment options. Our plan will be as follows: 1. group home (current) use of opiate analgesic A UDS was completed today, any inconsistencies will be discussed with the patient at the next office visit. - TOX SCREEN ROUT UR 2. Hereditary and idiopathic peripheral neuropathy I will refill the patient's opioids today for 2 months. The patient continues to see benefit and improvement in their quality of life and ability to maintain ADLs. A OARRS report was completed and the patient prescription history was consistent with what was reported. Patient has been educated on the risks, benefits, and alternatives of controlled substances as well as the proper way to store these medications. Patient educated about the risks of taking opioids and operating a motor vehicle. Pill Count - Good Patient was offered a prescription for naloxone today. This patient has a history of one of the following: prior opioid overdose; dosage prescribed exceeds a daily average of 80 MED, or < 80 MED and is co-prescribed a benzodiazepine, sedative hypnotic drug, carisprodal, tramadol, or gabapentin; a concurrent substance use disorder. Gabapentin refilled today, patient doing well on current dosing with no adverse side effects. 3. Other chronic pain Patient educated about examining his legs to prevent infection. - gabapentin (NEURONTIN) 300 mg capsule; take 1 capsule every morning and 2 capsules at bedtime Dispense: 90 capsule; Refill: 2 4. Chronic low back pain with sciatica, sciatica laterality unspecified, unspecified back pain laterality - traMADol (ULTRAM) 50 mg tablet; Take 1 tablet by mouth twice daily as needed for up to 30 days. 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 GABAPENTIN 300 MG CAPSULE take 1 capsule every morning * TRAMADOL 50 MG TABLET Take 1 tablet by mouth twice * FOLIC ACID ORAL Take 1 mg by mouth. TRAZODONE 50 MG TABLET Take 50 mg by mouth daily at * BETAMETHASONE DIPROPIONATE 0.* ALLOPURINOL 100 MG TABLET twice daily. TAMSULOSIN 0.4 MG CAPSULE Take 0.4 mg by mouth once tulio* ANDROGEL 20.25 MG/1.25 GRAM (* Apply 2 pumps to affected are* VALSARTAN 320 MG-HYDROCHLOROT* Take 1 tablet by mouth once d* DIPHENHYDRAMINE 50 MG CAPSULE Take 50 mg by mouth daily at * [id number] IC ACID-V* Take by mouth. ACETAMINOPHEN ORAL Take by mouth. DIPHENHYDRAMINE 25 MG-ACETAMI* Take by mouth. 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 Medications Discontinued During This Encounter gabapentin (NEURONTIN) 300 mg capsule 90 c* 1 07/13/2018 07/21/2018 Sig: take 1 capsule every morning and 2 capsules at bedtime Disc: Reason for discontinue is not on file. traMADol (ULTRAM) 50 mg tablet 60 t* 1 04/16/2018 07/21/2018 Class: Print RX Route: ORAL Sig: Take 1 tablet by mouth twice daily as needed for up to 30 days. Disc: Reason for discontinue is not on file. Questionnaire: AG SPINE PAIN PILL COUNT MEDICATION NAME -> tramadol STRENGTH -> 50 LAST FILL DATE -> 06/06/2018 DATE LAST DOSE TAKEN -> 3.2019 QUANTITY FILLED -> 60 QUANTITY REMAINING -> 6 Encounter Status:Closed by AQULIES ORDAZ MD on 07/21/18 [facility] PROGRESSon 07-21-2018 PROGRESS HNO ID: [id number] Author: Aquiles Ordaz Service: ? Author Type: Physician Type: Progress Notes Filed: 07/21/2018 9:00 AM Note Text: Subjective HPI Iman Barker is a 77 year old male who presents today for refill and follow up today. He states that His pain in the AM is a 2/10 and then will escalate to 7/10 in the evening. He has been battling with a right lower extremity wound and was in the wound clinic with osteomyelitis. Pain is located from the knees to the feet. He has burning, numbness, and tingling. He takes his tramadol 5 night per week since the evening is the worse for him. He reports no adverse side effects from the medications. Patient reports no adverse side effects to current medication regimen. Current regimen does allow patient to maintain ADLs. Patient reports no new neurologic symptoms, new pain areas, or exacerbation in pain today. Patient reports they are happy with current treatment care path. ROS PAST MEDICAL HISTORY Diagnosis Date - Displacement of lumbar intervertebral disc without myelopathy - Diverticulitis - Spinal stenosis of lumbar region PAST SURGICAL HISTORY Procedure Laterality Date - PAST SURGICAL HISTORY OF cartilage and veins removal - TOTAL KNEE REPLACEMENT Right FAMILY HISTORY Problem Relation Age of Onset - Prostate Cancer Father Social History Socioeconomic History Marital status: Spouse name: Not on file Number of children: Not on file Years of education: Not on file Highest education level: Not on file Social Needs Financial resource strain: Not on file Food insecurity - worry: Not on file Food insecurity - inability: Not on file Transportation needs - medical: Not on file Transportation needs - non-medical: Not on file Occupational History Not on file Tobacco Use Smoking status: Never Smoker Smokeless tobacco: Never Used Substance and Sexual Activity Alcohol use: Yes Comment: 3 beers yearly Drug use: No Sexual activity: Not on file Other Topics Concerns: Service: Not Asked Blood Transfusions: Not Asked Caffeine Concern: Yes 3 cups of coffee/soda per day Occupational Exposure: Not Asked Hobby Hazards: Not Asked Sleep Concern: Not Asked Stress Concern: Not Asked Weight Concern: Not Asked Special Diet: Yes regular; watches carbs Back Care: Not Asked Exercise: Yes walking Bike Helmet: Not Asked Seat Belt: Not Asked Self-Exams: Not Asked Social History Narrative Not on file Current Meds IBUPROFEN ORAL Take by mouth. gabapentin (NEURONTIN) 300 mg capsule take 1 capsule every morning and 2 capsules at bedtime FOLIC ACID ORAL Take 1 mg by mouth. traZODone (DESYREL) 50 mg tablet Take 50 mg by mouth daily at bedtime. traMADol (ULTRAM) 50 mg tablet Take 1 tablet by mouth twice daily as needed for up to 30 days. betamethasone dipropionate (DIPROSONE) 0.05 % cream allopurinol (ZYLOPRIM) 100 mg tablet twice daily. tamsulosin ER (FLOMAX) 0.4 mg cp24 Take 0.4 mg by mouth once daily. ANDROGEL 20.25 mg/1.25 gram (1.62 %) glpm Apply 2 pumps to affected area as needed. Valsartan-Hydrochlor othiazide 320-25 mg per tablet Take 1 tablet by mouth once daily. diphenhydrAMINE (BENADRYL) 50 mg capsule Take 50 mg by mouth daily at bedtime. hwmwrjel-dxx-XN-K-ly copene 400-20-370 mcg tab Take by mouth. ACETAMINOPHEN ORAL Take by mouth. diphenhydrAMINE-Acet aminophen (TYLENOL PM EXTRA STRENGTH) 25-500 mg tab Take by mouth. Cholecalciferol, Vitamin D3, 5,000 unit tab Take 5,000 Units by mouth once daily. Objective BP 108/60 Pulse 68 Ht 5' 9 (1.75m) Wt 205 lb (93.0kg) BMI 30.26 kg/(m2). Physical Exam Constitutional: He is oriented to person, place, and time and well-developed, well-nourished, and in no distress. HENT: Head: Normocephalic and atraumatic. Right Ear: Hearing normal. Left Ear: Hearing normal. Nose: No rhinorrhea. Eyes: Pupils are equal, round, and reactive to light. Cardiovascular: Normal rate, regular rhythm and normal heart sounds. Pulmonary/Chest: Effort normal and breath sounds normal. Abdominal: Normal appearance and bowel sounds are normal. Musculoskeletal: Lumbar back: He exhibits decreased range of motion and pain. Tenderness: left SI joint. Right foot: There is decreased range of motion and bony tenderness. Left foot: There is decreased range of motion and tenderness. Neurological: He is alert and oriented to person, place, and time. Weakness: left lower extremity. knee: 4/5, ankle 4/5. A sensory deficit (left lower extremity. L4 distrubution) is present. Gait normal. Reflex Scores: Patellar reflexes are 2+ on the right side and 1+ on the left side. Achilles reflexes are 2+ on the right side and 2+ on the left side. Psychiatric: Mood, memory, affect and judgment normal. Nursing note and vitals reviewed. Assessment and Plan I had a nice discussion with the patient today about their current pain and the pathology that could be causing it. We discussed different treatment options. Our plan will be as follows: 1. 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 - TOX SCREEN ROUT UR 2. Hereditary and idiopathic peripheral neuropathy I will refill the patient's opioids today for 2 months. The patient continues to see benefit and improvement in their quality of life and ability to maintain ADLs. A OARRS report was completed and the patient prescription history was consistent with what was reported. Patient has been educated on the risks, benefits, and alternatives of controlled substances as well as the proper way to store these medications. Patient educated about the risks of taking opioids and operating a motor vehicle. Pill Count - Good Patient was offered a prescription for naloxone today. This patient has a history of one of the following: prior opioid overdose; dosage prescribed exceeds a daily average of 80 MED, or < 80 MED and is co-prescribed a benzodiazepine, sedative hypnotic drug, carisprodal, tramadol, or gabapentin; a concurrent substance use disorder. Gabapentin refilled today, patient doing well on current dosing with no adverse side effects. 3. Other chronic pain Patient educated about examining his legs to prevent infection. - gabapentin (NEURONTIN) 300 mg capsule; take 1 capsule every morning and 2 capsules at bedtime Dispense: 90 capsule; Refill: 2 4. Chronic low back pain with sciatica, sciatica laterality unspecified, unspecified back pain laterality - traMADol (ULTRAM) 50 mg tablet; Take 1 tablet by mouth twice daily as needed for up to 30 days. Dispense: 60 tablet; Refill: 1 [facility] PROGRESS HNO ID: [id number] Author: Flakita Haley) Han Service: ? Author Type: Breading Machine Tender Type: Progress Notes Filed: 07/21/2018 9:00 AM Note Text: Subjective HPI Review of Systems Eyes: Negative for blurred vision and double vision. Respiratory: Negative for shortness of breath. Cardiovascular: Negative for chest pain and leg swelling. Gastrointestinal: Negative for constipation, diarrhea and nausea. Genitourinary: Negative for dysuria. Skin: Positive for itching. Neurological: Negative for dizziness, tingling, weakness and headaches. Endo/Heme/Allergies: Bruises/bleeds easily. Psychiatric/Behavior al: Negative for depression and suicidal ideas. PAST MEDICAL HISTORY Diagnosis Date - Displacement of lumbar intervertebral disc without myelopathy - Diverticulitis - Spinal stenosis of lumbar region PAST SURGICAL HISTORY Procedure Laterality Date - PAST SURGICAL HISTORY OF cartilage and veins removal - TOTAL KNEE REPLACEMENT Right FAMILY HISTORY Problem Relation Age of Onset - Prostate Cancer Father Social History Socioeconomic History Marital status: Spouse name: Not on file Number of children: Not on file Years of education: Not on file Highest education level: Not on file Social Needs Financial resource strain: Not on file Food insecurity - worry: Not on file Food insecurity - inability: Not on file Transportation needs - medical: Not on file Transportation needs - non-medical: Not on file Occupational History Not on file Tobacco Use Smoking status: Never Smoker Smokeless tobacco: Never Used Substance and Sexual Activity Alcohol use: Yes Comment: 3 beers yearly Drug use: No Sexual activity: Not on file Other Topics Concerns: Service: Not Asked Blood Transfusions: Not Asked Caffeine Concern: Yes 3 cups of coffee/soda per day Occupational Exposure: Not Asked Hobby Hazards: Not Asked Sleep Concern: Not Asked Stress Concern: Not Asked Weight Concern: Not Asked Special Diet: Yes regular; watches carbs Back Care: Not Asked Exercise: Yes walking Bike Helmet: Not Asked Seat Belt: Not Asked Self-Exams: Not Asked Social History Narrative Not on file Current Meds IBUPROFEN ORAL Take by mouth. gabapentin (NEURONTIN) 300 mg capsule take 1 capsule every morning and 2 capsules at bedtime FOLIC ACID ORAL Take 1 mg by mouth. traZODone (DESYREL) 50 mg tablet Take 50 mg by mouth daily at bedtime. traMADol (ULTRAM) 50 mg tablet Take 1 tablet by mouth twice daily as needed for up to 30 days. betamethasone dipropionate (DIPROSONE) 0.05 % cream allopurinol (ZYLOPRIM) 100 mg tablet twice daily. tamsulosin ER (FLOMAX) 0.4 mg cp24 Take 0.4 mg by mouth once daily. ANDROGEL 20.25 mg/1.25 gram (1.62 %) glpm Apply 2 pumps to affected area as needed. Valsartan-Hydrochlor othiazide 320-25 mg per tablet Take 1 tablet by mouth once daily. diphenhydrAMINE (BENADRYL) 50 mg capsule Take 50 mg by mouth daily at bedtime. uxvnifoc-zmz-IU-K-ly copene 400-20-370 mcg tab Take by mouth. ACETAMINOPHEN ORAL Take by mouth. diphenhydrAMINE-Acet aminophen (TYLENOL PM EXTRA STRENGTH) 25-500 mg tab Take by mouth. Cholecalciferol, Vitamin D3, 5,000 unit tab Take 5,000 Units by mouth once daily. Objective There were no vitals taken for this visit. Physical Exam [facility] OBSOLETEon 07-11-2018 OBSOLETE Refill ([id number]) IMAN BARKER ([id number]) 1940 [facility] Date Time Provider Department 07/11/18 AQUILES ORDAZ [id number] During your visit today, we recorded the following information about you: Aquiles Ordaz MD 07/13/2018 4:39 PM Signed The following approved medication requests have been transmitted electronically. Pending Prescriptions Disp Refills GABAPENTIN 300 MG CAPSULE 90 capsule 1 Sig: take 1 capsule every morning and 2 capsules at bedtime CONSTANTINE: Yes MD Lincoln Watkins 07/15/2018 1:46 PM Signed Patient left a message stating he needs a refill on his Gabapentin sent to [facility] in [place]. Patient notified the medication was already sent in. Lincoln Palafox Allergies As of Date: 07/11/2018 Noted Allergy Reaction SULFA (SULFONAMIDE ANTIBIOTICS) 07/19/2015 2 - Rash 4 - Hives Date Reviewed: 04/16/2018 Reviewed by: Regina Gaston LPN - Fully Assessed Reason for Visit: Refill Request [94] Visit Diagnosis:Other chronic pain [G89.29] Order(s):gabapentin (NEURONTIN) 300 mg capsuletake 1 capsule every morning and 2 capsules at bedtimeDisp: 90 capsuleRfl: 1 Prescriptions as of 07/11/2018 Sig: GABAPENTIN 300 MG CAPSULE take 1 capsule every morning * FOLIC ACID ORAL Take 1 mg by [...] 50 mg by mouth daily at * [id number] IC ACID-V* Take by mouth. 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 Encounter Status:Closed by AQUILES ORDAZ MD on 07/13/18 [facility] Vital Signs Date Time Vital Sign Value Performing Clinician Facility 08-09-2023 18:51-0400 Body temperature 97.8 [degF] [facility] 08-09-2023 18:51-0400 Diastolic blood pressure 72 mm[Hg] [facility] 08-09-2023 18:51-0400 Heart rate 79 /min [facility] 08-09-2023 18:51-0400 Respiratory rate 14 /min [facility] 08-09-2023 18:51-0400 SaO2% (BldA) [Mass fraction] 99 % [facility] 08-09-2023 18:51-0400 Systolic blood pressure 130 mm[Hg] [facility] 08-09-2023 15:35-0400 Body height 172.72 cm [facility] 08-09-2023 15:35-0400 Body mass index (BMI) [Ratio] 29.3 kg/m2 [facility] 08-09-2023 15:35-0400 Body weight 87.54 kg [facility] 02-08-2023 07:16-0400 Diastolic blood pressure 96 mm[Hg] [facility] 02-08-2023 07:16-0400 Heart rate 55 /min [facility] 02-08-2023 07:16-0400 Respiratory rate 15 /min [facility] 02-08-2023 07:16-0400 SaO2% (BldA) [Mass fraction] 96 % [facility] 02-08-2023 07:16-0400 Systolic blood pressure 163 mm[Hg] [facility] 02-08-2023 03:24-0400 Body height 172.72 cm [facility] 02-08-2023 03:24-0400 Body mass index (BMI) [Ratio] 29.5 kg/m2 [facility] 02-08-2023 03:24-0400 Body temperature 97.3 [degF] [facility] 02-08-2023 03:24-0400 Body weight 88.2 kg [facility] [facility] NE[facility]ATED: Highlighted [id number] 08:22-0400 Body height 175.26 cm Bertha Perez LPN [facility] Work Phone: NEGATED: Highlighted [id number] 08:22-0400 Body height 175 cm Bertha Perez LPN [facility] Work Phone: NEGATED: Highlighted [id number] 08: Body mass index (BMI) [Ratio] 28.9 kg/m2 Bertah Perez LPN [facility] Work Phone: NEGATED: Highlighted [id number] 08:040 Body weight 88.45 kg Bertha Perez DATA CENTER MANAGER [facility] Work Phone: NEGATED: Highlighted [id number] 08: Body weight 89 kg Bertha Perez DATA CENTER MANAGER [facility] Work Phone: Encounters Encounter Date Encounter Type Care Provider Facility Start: 11-02-2024 ambulatory Sharad [facility] Facility: [facility] Start: 10-31-2024 [facility] Start: 10-29-2024 [facility] Start: 10-18-2024 End: 10-18-2024 ambulatory AVERELL SHARAD AVERELL DO~[id number] [facility] Start: 09-06-2024 End: 09-06-2024 ambulatory [facility] Facility:[facility] Start: 06-23-2024 End: 06-23-2024 [facility] Start: 11-10-2023 End: 11-10-2023 ambulatory [facility] Facility:[facility] Start: 08-09-2023 End: 08-09-2023 Emergency department patient visit [facility]-Emergency Department Work Phone: Start: 06-03-2023 End: 06-03-2023 ambulatory [facility] Work Phone: Start: 06-03-2023 End: 06-03-2023 Patient encounter procedure [facility]Isaac Tee MERYL Start: 05-01-2023 End: 05-01-2023 ambulatory [facility] Work Phone: Start: 05-01-2023 End: 05-01-2023 Patient encounter procedure [facility] Work Phone: Start: 02-08-2023 End: 02-08-2023 [facility] Start: 01-31-2023 End: 01-31-2023 ambulatory [facility] Work Phone: Start: 01-31-2023 End: 01-31-2023 Discharged Recurring [facility]-Physical Therapy Work Phone: Start: 01-31-2023 Registered Rec[facility]ring [facility] Work Phone: Start: 09-10-2022 End: 09-10-2022 ambulatory [facility] Work Phone: Start: 09-10-2022 End: 09-10-2022 Patient encounter procedure [facility] Start: 10-22-2021 End: 10-22-2021 Patient encounter procedure [facility] Start: 2021 End: 2021 [facility] Start: 08-13-2021 End: 08-13-2021 [facility] Procedures Date Procedure Procedure Detail Performing Clinician Start: 08-09-2023 Pelvis X-ray Start: 08-09-2023 X-ray of lumbar spin e, two or three views Start: 08-09-2023 CT of head without contrast Start: 09-03-2021 End: 09-03-2021 BP scrn no perf at interval Dom Landin MD Work Phone: Start: 09-03-2021 End: 09-03-2021 Calc BMI out nrm ana nof/u Dom Landin MD Work Phone: Start: 09-03-2021 End: 09-03-2021 Current tobacco non-user cad cap copd pv dm Dom Landin MD Work Phone: Start: 09-03-2021 End: 09-03-2021 Docrev cur meds by lópez Landin MD Work Phone: Start: 09-03-2021 End: 09-03-2021 Pain doc pos and plan Dom Landin MD Work Phone: Start: 09-03-2021 End: 09-03-2021 Patient encounter procedure Dom Landin MD Work Phone: Start: 01-27-2019 [object Object] Comment on above: Performed By: #### L [id number], L500.03344, L500.88564, L500.19191 #### [facility] [address] [place] [address]# [phone] NEGATED: Highlighted rowStart: 09-03-2021 End: 09-03-2021 Documentation of current medications Bertha Perez LPN Plan of Treatment Date Care Activity Detail Author Start: 08-09-2023 [facility] Start: 09-03-2021 End: 09-03-2021 Patient encounter procedure Appointment [facility] Work Phone: Start: 09-03-2021 End: 09-03-2021 Non-invasive physiologic study extremity 3 levls Arterial PVR bilateral lower extremity - w/o exercise [facility] Work Phone: Start: 09-03-2021 End: 09-03-2021 Radex foot complete minimum 3 views [facility] Work Phone: Patient Education [facility] Work Phone: Patient referral [facility] Work Phone: Immunizations Immunization Date Immunization Notes Care Provider Fa cility 08-02-2020 [facility] 07-05-2020 [facility] Payers Date Payer Category Payer Medicare [id number] 2023 [id number] [id number] 2015 Medicare [id number] 1959 Private Health Insurance [id number] 1940 Unknown [id number] [id number] 1940 Unknown [id number] 2.16.8 [id number] Medicare [id number] Unknown [id number] 2.16.8 [id number] Unknown [id number] 2.16.8 [id number] Unknown [id number] 2.16.8 [id number] Unknown [id number] 2.16.8 [id number] Unknown [id number] 2.16.8 [id number] Social History Date Type Detail Facility Start: 07-06-2018 End: 08-09-2023 Tobacco smoking status NHIS Unknown if ever smoked [facility] Work Phone: Start: 07-06-2018 Rare [facility] Start: 07-06-2018 None [facility] Start: 07-06-2018 Spouse/ Signif icant Other [facility] Start: 07-06-2018 Non-smoker [facility] Start: 1940 Sex Assigned At Male W [facility] Mental Status Date Assessment Result Facility 02-08-2023 Cognitive function Level Of Cons ciousness Awake;Alert;Appropriate [facility] Work Phone: Discharge summary 08-09-2023 Note Date & Type Note Facility 08-09-2023 Discharge summary Note Date/Time August 09, 2023 5:24pm [facility] Medical Records Department [address] [place] [address] Emergency Department Summary 08/09/23 MR#: [id number] Acct: [id number] Name: IMAN BARKER Rep #:[id number] : 1940 82 From: Julia Cano PCP: Shirley Wood BLENDING MACHINE OPERATOR-C Status:REG ER Location: ED HPI HPI - Fall History of Present Illness Chief Complaint: Fall Informant: patient Narrative Narrative: Patient is an 82-year-old male with history of degenerative disc disease and status post L3/4 and L4/5 foraminectomy with left L3-S1 fusion and allograft performed on 06/24/[address] Goldberg at [facility]. Today patient was walking on the porch around noon when he slipped on ice and fell backwards. Hisdaughter is at the bedside who actually had the fall on the security camera for the house and patient had both feet distal about from underneath him and he fellbackwards. He did hit his head. No loss of conscious. Is having some mild discomfort but took his regular Tylenol and tramadol prior to arrival. Family requested that he come in to be evaluated make sure there is no abnormalities ofhis hardware since he had his recent surgery. Patient denies any other complaints at this time. Denies any new saddle anesthesia, urinary symptoms or new weakness of his legs. Notes he had some chronic weakness of his left leg which is improving. [facility] Medical History HTN (hypertension) Home Medications Allopurinol 100 mg PO BID 06/29/18 [History Last Taken Unknown] Androgel 1.62 % topical BID 06/29/18 [History Last Taken Unknown] Folic Acid 1 mg PO DAILY 06/29/18 [History Last Taken Unknown] Gabapentin 300 mg PO BID 06/29/18 [History Last Taken Unknown] [place] 3 Fish Oil Softgel 360 mg PO BID 06/29/18 [History Last Taken Unknown] One Daily For Men Tablet 1 tab PO DAILY 06/29/18 [History Last Taken Unknown] Tamsulosin HCl 0.4 mg PO DAILY 06/29/18 [History Last Taken Unknown] Tramadol 50 mg PO PRN PRN Pain 06/29/18 [History Last Taken Unknown] Valsartan-Hctz 320-25 mg Tab 320 mg PO DAILY 06/29/18 [History Last Taken Unknown] Vitamin D3 5,000 iu PO PRN PRN Supplement Ux Lead 06/29/18 [History Last Taken Unknown] traZODone 50 mg PO DAILY 06/29/18 [History Last Taken Unknown] potassium chloride 10 mEq capsule,extended release 10 meq PO DAILY 10 days #10 caps 02/08/23 [Rx Last Taken Unknown] Allergy/AdvReac Type Severity Reaction Status Date / Time peanut Allergy Hives Verified 08/09/23 15:41 Sulfa (Sulfonamide Allergy Hives Verified 08/09/23 15:41 Antibiotics) Social History Smoking Status: Never smoker ROS ROS ED Constitutional Constitutional ED: Denies chills or fever(s) Eyes Eyes: Denies change in vision Cardiovascular Cardiovascular: Denies chest pain Respiratory/Chest Respiratory/Chest: Denies cough Gastrointestinal Gastrointestinal: Denies abdominal pain, nausea or vomiting Genitourinary Genitourinary ED: Denies dysuria or urinary frequency Musculoskeletal Musculoskeletal: Reports back pain; Denies myalgias or neck pain Integumentary Denies rash Neurologic Neurologic: Denies headache(s) Hematologic/Lymphatic Hematologic/Lymphatic: Denies easy bleeding or easy bruising EXAM Physical Exam Const Vital Signs: 08/09/23 15:35 08/09/23 16:08 Temperature 96.9 F L Temperature Source Temporal Pulse Rate 60 Respiratory Rate 16 Respiratory Effort Normal Non-Labored Respiratory Depth Normal Respiratory Pattern Normal Blood Pressure 146/71 H Blood Pressure Mean 96 Pulse Ox 98 Oxygen Delivery Method Room Air Room Air Positive well nourished and well developed General Appearance ED: well developed and NAD HEENT Reports normocephalic, TM's clear and TM's normal bilaterally atraumatic; Negative for trauma Tympanic Membrane ED: Yes TM's clear Eyes PERRL and EOMs intact bilaterally Neck full ROM and supple General: Negative for tenderness Chest Wall inspection of chest normal and palpation of chest normal Resp normal respiratory effort and clear to auscultation bilaterally Cardio regular rate and regular rhythm GI non-tender and non-distended Back/Spine Back/Spine Narrative: No midline tenderness. Healing surgical incision of the lumbar spine. No infectious symptoms. No sacral tenderness to palpation. Normal range of motion. Neuro oriented x3, moves all extremities, no focal motor deficits and no sensory deficits noted Neuro Narrative: 5/5 strength with dorsal and plantarflexion of the legs. Renita Coma Scale: document GCS findings Spontaneous Obeys Commands Oriented 15 Sensorium / Orientation: alert Psych mental status grossly normal and thought process normal Skin Lesions: no lesions Rashes: no rashes Trauma: Negative for abrasion MDM MDM MDM Narrative Medical decision making narrative: Patient is evaluated for evaluation after mechanical fall. He slipped and landed on his back but had recent spinal surgery as well as also hit his head. Because of his age and he did fall pretty hard (I Watched on the home security video that his daughter brought in). Differential includes intracranial hemorrhage, skull fracture, lumbar spinal fracture or defect of his pedicle screws/recent surgery. He does not have any focal neurologic deficits and does not have midline tenderness. Do not think herequires a CT at this time. Lumbar x-ray viewed by myself as well as radiology does not show any acute compression fractures however there is no recent comparative. There are degenerative and operative changes. CT of the brain does not show any acute process. Patient will be given a disc of his x-ray as he [facility] with [facility]. Will be discharged home. Counseled that he likely will be more sore and have increased pain of the next few days just because of the fall but he can follow-up with hisspine surgeon sooner (next 1 is not until September) if he is not recovering or returnto the emergency room. Patient verbalized agreement understand this plan. Discharged home in stable condition Radiography Diagnostic Testing: Clinical Impression(s) from Imaging Studies Brain CT 08/09/23 16:42 IMPRESSION: No acute intracranial hemorrhage or mass effect. Electronically Signed: Reynaldo Hancock MD (Brooks) at 18:12 EDT Reading Location ID and State: [facility] / [place] , Service support , Lumbar Spine X-Ray 08/09/23 17:48 IMPRESSION: Degenerative and operative changes. No compression fracture. Comparison studies would be useful. Electronically Signed: Reynaldo Hancock MD (Brooks) at 18:14 EDT , Pelvis X-Ray 08/09/23 17:48 IMPRESSION: No fracture or malalignment. Electronically Signed: Reynaldo Hancock MD (Brooks) at 18:13 EDT , Discharge Plan Triage Chief Complaint: Fall ED Provider: Julia Pittman Dx/Rx/DC Orders Clinical Impression: Lumbar contusion, Closed head injury, Fall Instructions: ED Mechanical Fall Prescriptions: No Action Valsartan-Hctz 320-25 mg Tab 320 mg PO DAILY Allopurinol 100 mg PO BID Androgel 1.62 % topical BID Folic Acid 1 mg PO DAILY Gabapentin 300 mg PO BID One Daily For Men Tablet 1 tab PO DAILY Tamsulosin HCl 0.4 mg PO DAILY traZODone 50 mg PO DAILY [place] 3 Fish Oil Softgel 360 mg PO BID Tramadol 50 mg PO PRN PRN (Reason: Pain) Vitamin D3 5,000 iu PO PRN PRN (Reason: Supplement Ux Lead) potassium chloride 10 mEq capsule, extended release 10 meq PO DAILY 10 Days Qty: 10 0RF Primary Care Provider: Shirley Wood Referrals: Shirley Wood, ALFONSO [Primary Care Provider] - Disposition Disposition: Home, Self Care What to do if you have Problems For any increased pain, shortness of breath, bleeding, nausea or vomiting, chestpain, or any unexpected problems, contact your Primary Care Provider. Call [facility] ([phone]) or report to the closest Emergency Room. Call 911 if necessary. 08/09/23 1844 <Electronically signed by Julia Pittman DO> Cosigner Signature (if applicable): CC: BLENDING MACHINE OPERATORDhruv Wood ~ Signed [facility] Work Phone: Clinical Note 06-29-2020 Note Date & Type Note Facility 06-29-2020 Note Patient Outreach ([place] VAMN) IMAN BARKER ([id number]) 1940 M [place] Date Time Provider Department 06/29/20 WEATHERS, SHERINE RODRIGUEZ During your visit today, we recorded the following information about you: Allergies As of Date: 06/29/2020 Noted Allergy Reaction SULFA (SULFONAMIDE ANTIBIOTICS) 07/19/2015 2 - Rash 4 - Hives Date Reviewed: 06/22/2019 Reviewed by: Edilma Oh MA - Fully Assessed Order(s):SARS-COVID VACCINE 1ST DOSE APPT [[id number]] Order #: [id number] FUTURE Prescriptions as of 06/29/2020 Sig: FOLIC [...] 50 mg by mouth daily at * [id number] ACID-V* Take by mouth. CHOLECALCIFEROL (VITAMIN D3) [...] [M89.8X8] 05/13/2017 Letter Text Encounter Status:Closed by EPIC, PRODUSER on 07/03/20 [facility] Evaluation note Note Date & Type Note Facility Evaluation note No assessment information availa [facility] Work Phone: Evaluation note Note Date & Type Note Facility Evaluation note There may be informa tion available, but it has not been provided by the sender. [facility] Work Phone: Instructions Note Date & Type Note Facility Instructions Completed [facility] Work Phone: Summary Purpose Family History No Family History Records Found Relationship Condition Age at Onset Recorded Date/T mary Unknown Family History?- Unknown July 062018 5:56pm Relationship Condition Age at Onset Recorded Date/T mary Unknown Family History?- Unknown July 062018 4:56pm Advance Directives No Advanced Directives Records Found Advance Directive Response Recorded Date/ Time Name of Medical Power of Wall Taper YOVANA MACEDO February 08, 2023 2:24am Living Will Yes February 08, 2023 2:24am Power of Wall Taper Yes January 2:24am Advance Directive Response Recorded Date/ Time Living Will Yes February 08, 2023 2:24am Power of Wall Taper Yes January 2:24am Name of Medical Power of Wall Taper YOVANA MACEDO February 08, 2023 2:24am Advance Directive Response Recorded Date/ Time Living Will No August 09, 2023 4:08pm Power of Wall Taper No August 08 4:08pm Chief Complaint and Reason for Visit Chief Complaint ANEURYSM OF ILIAC AR ETERY, PAIN RT LEG Chief Complaint ANEURYSM OF ILIAC AR ETERY, PAIN RT LEG HAMMER TOE Chief Complaint 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 RX HERE HYPOTENSION Chief Complaint HYPOTENSION Chief Complaint FALL Chief Complaint Chief Complaint Description Start Date bilateral foot pain Preliminary chief co mplaint data, not yet signed by the author as of Additional Source Comments (unrecognized sect ion and content) No Status Records FoundNo Status Records FoundNo Status Records FoundNo Status Records FoundNo Status Records FoundNo Status Records Found INFORMATION SOURCE (unrecogn ized section and content) DATE CREATED AUTHOR 02/03/2019 [facility] DATE CREATED AUTHOR AUTHOR'S ORGANIZ ATION 06/22/2019 [facility] DATE CREATED AUTHOR AUTHOR'S ORGANIZ ATION 06/22/2019 [facility] DATE CREATED AUTHOR AUTHOR'S ORGANIZ ATION 06/13/2021 [facility] DATE CREATED AUTHOR AUTHOR'S ORGANIZ ATION 10/22/2024 [facility] DATE CREATED AUTHOR AUTHOR'S ORGANIZ ATION 11/01/2024 [facility] Goals (unrecognized section and content) Goals may be documented in a n alternate sectionGoals may be documented in an alternate sectionGoals may be documented in an alternate sectionGoals may be documented in an alternate sectionGoals may be documented in an alternate sectionGoals may be documented in an alternate sectionGoals may be documented in an alternate sectionGoals may be documented in an alternate section Reason for Visit (unrecogniz ed section and content) Reason For Visit Description New/Est - 1st visit with physician 09/03 Preliminary reason f or visit data, not yet signed by the author as of bilateral foot pain Care Teams (unrecognized sec tion and content) Team Status: Active Member Role Status Dates Dr. Maryjo Ford MD Family Provider Active Shirley Wood NP-Robby Primary Care Provider Active Team Status: Inactive Member Role Status Dates Shirley Wood NP-Rob[place] Primary Care Provide r, Attending Provider, Referring Provider Active Team Status: Active Member Role Status Dates Shirley Wood NP-C Primary Care Provider Active Dr. Rakesh Phelps MD Attending Provider, Referrin g Provider Active Team Status: Inactive Member Role Status Dates Shirley Wood NP-C Primary Care Provider Active Dr. Pedro Luis Oliva DO Attending Provider, Emergency Pr ovider Active Team Status: Inactive Member Role Status Dates Shirley Wood NP-C Primary Care Provider Active Dr. Rakesh Phelps MD Attending Provider, Referrin g Provider Active Team Status: Inactive Member Role Status Dates ALFONSO Kaminski Primary Care Provider, Attending Roma celaya Active Team Status: Inactive Member Role Status Dates ALFONSO Kaminski Primary Care Provider Active Dr. Julia Pitmtan , DO Emergency Provider Active FOR RECORDS PERTAINING TO PATIENTS WHO ARE [...] BE BASED ON THE PRIMARY CLINICAL RECORDS. [employer] [facility]. provides no warranty or guarantee of the accuracy or completeness of information in this document.
== END | disposition home or self-care (01) ==
LOC: LAB 08:09
PROVIDERS: PCP Nurse Practitioner Family; Referring Provider Psychiatry & Neurology Neurology; Visit Provider Psychiatry & Neurology Neurology
DX: D89.2 Hypergammaglobulinemia, unspecified (principal)
CPT/HCPCS: 81050

== ENCOUNTER → 2024-11-12 | Outpatient (CLI) | payer MEDICARE, SELFPAY ==
--- NOTE | 2024-11-12 12:55 | RAD_ITS ---
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 TECHNIQUE: BONE SURVEY COMP(AXIAL APPEND) COMPARISON: None FINDINGS: There is grade 1 spondylolisthesis at C5-6, 0.3 cm. There is degenerative disc disease in the cervical thoracic, and lumbar region. Hardware is noted in the lumbar spine. Hardware is noted at the right knee. A suture anchor is present in the proximal right humerus. There are no suspicious lytic or blastic lesions identified in the axial or appendicular skeleton. Vascular calcifications are visible. RAD/Bone Survey Comp(Axial&Append) IMPRESSION: No suspicious lytic or blastic lesions are identified. Reading Location: [facility]
== END | disposition home or self-care (01) ==
LOC: RAD 12:46
PROVIDERS: PCP Nurse Practitioner Family; Referring Provider Psychiatry & Neurology Neurology; Visit Provider Psychiatry & Neurology Neurology
DX: D69.2 Other nonthrombocytopenic purpura (principal)
CPT/HCPCS: 77075